=== PATIENT | male | born 1965 | race Caucasian/White ===

== ENCOUNTER → 2016-09-04 | Outpatient (CLI) | payer OTHER ==
[2016-07-10 09:53] VITALS: BP 157/89
[~2016-09-04] MED LIST: ALLO300T PO; ASCO10002 PO; ASPI1TAB2 PO; ASPI81TA2 PO; ATEN50TA PO; CITA20TA5 PO; Chlordiazepoxide Hcl PO; ESCI10TA PO; FEXO180T81 PO; FOLI1TAB16 PO; FURO-68 PO; FURO20TA3 PO; HYDR-2672 PO; HYDR-2762 PO; Hydrocodone Bit/Acetaminophen PO; LEVO500T38 PO; MAGN296S4 PO; MORP30TA13 PO; MORP30TA83 PO; Multivitamins,Therapeutic PO; OLME40TA PO; OMEP20CA9 PO; OMEP40CA5 PO; OXYC-323 PO; OXYC10TA PO; PROAIR HFA8.5 GM IH; SENN1TAB70 PO; TRIA1TAB5 PO; VALS320T2 PO; [UNRECOGNIZED DRUG - CODE] PO
--- NOTE | 2016-09-04 09:59 | RAD ---
Right knee, 2 views, 09/04/2016: History: Knee injury, chronic pain There is mild narrowing of the knee joint with moderate marginal spurring. There is also moderate spurring at the patellofemoral articulation. No acute fracture or dislocation is identified. Calcifications projected over the posterior aspect of the knee joint suggests the presence of loose bodies. No significant joint effusion is seen. A focus of smooth cortical thickening is present along the proximal tibial shaft seen on the lower edge of these images. It is not fully visualized on these images. It probably represents an exostosis. IMPRESSION: 1. Moderate degenerative change. 2. No acute bony abnormality is detected.
== END | disposition home or self-care (01) ==
LOC: RAD 08:48
PROVIDERS: ATTEND Family Medicine
DX: M17.11 Unilateral primary osteoarthritis, right knee (principal)
CPT/HCPCS: 73560

== ENCOUNTER → 2017-08-05 | Outpatient (CLI) | payer OTHER ==
[~2017-08-05] MED LIST changes: -ALLO300T PO; -ASCO10002 PO; -ASPI1TAB2 PO; -ASPI81TA2 PO; -ATEN50TA PO; -CITA20TA5 PO; +CONTRAST GIVEN MC; -Chlordiazepoxide Hcl PO; -ESCI10TA PO; -FEXO180T81 PO; -FOLI1TAB16 PO; -FURO-68 PO; -FURO20TA3 PO; -HYDR-2672 PO; -HYDR-2762 PO; -Hydrocodone Bit/Acetaminophen PO; -LEVO500T38 PO; -MAGN296S4 PO; -MORP30TA13 PO; -MORP30TA83 PO; -Multivitamins,Therapeutic PO; -OLME40TA PO; -OMEP20CA9 PO; -OMEP40CA5 PO; -OXYC-323 PO; -OXYC10TA PO; -PROAIR HFA8.5 GM IH; -SENN1TAB70 PO; -TRIA1TAB5 PO; -VALS320T2 PO; -[UNRECOGNIZED DRUG - CODE] PO
[2017-08-05] MEDS: IOHEXOL 240 MG/ML 50ML VIAL. PO ×2 (07:45)
[2017-08-05] MEDS: IOHEXOL 300 MG/ML 100ML VIAL. IV ×2 (07:45)
== END | disposition home or self-care (01) ==
LOC: CT 07:29
DX: T81.4XXA Infection following a procedure, initial encounter (principal); I85.10 Secondary esophageal varices without bleeding; K74.60 Unspecified cirrhosis of liver; K76.6 Portal hypertension; K42.9 Umbilical hernia without obstruction or gangrene; Z98.890 Other specified postprocedural states
CPT/HCPCS: 74177; Q9966; Q9967

== ENCOUNTER 2021-01-29 19:50 | Emergency (ER) | payer MEDICARE ==
[~2021-01-29] VITALS: Ht 185.4 cm; Wt 139.0 kg
[~2021-01-29 19:50] MED LIST changes: +ALBU2.5V8 IH; +ALLO300T PO; +ALLO300T67 PO; +ASCO100019 PO; +ASPI-621 PO; +ASPI-630 PO; +ATEN50TA PO; +BUME1TAB3 PO; +CARV3.12 PO; +CITA20TA6 PO; -CONTRAST GIVEN MC; +Chlordiazepoxide Hcl PO; +DULO60CA6 PO; +ESCITALOPRAM OX10 MG PO; +FERR240T2 PO; +FEXO180T81 PO; +FOLI1TAB16 PO; +FURO-68 PO; +FURO20TA3 PO; +HYDR-2765 PO; +HYDR-2769 PO; +HYDR-2869 PO; +HYDR25TA PO; +Hydrocodone Bit/Acetaminophen PO; +LEVO500T59 PO; +LOSA100T14 PO; +MAGN296S4 PO; +METH57CR17 TP; +MORP30TA13 PO; +MORP30TA83 PO; +MULT-766 PO; +Multivitamins,Therapeutic PO; +NAPR500T8 PO; +OLME40TA12 PO; +OMEP20CA16 PO; +OMEP40CA7 PO; +OXYC10TA PO; +OXYC1TAB15 PO; +PEG15DRO4 EACHEYE; +POTA20TA4 PO; +PREG150C PO; +SENN1TAB70 PO; +SPIR25TA5 PO; +TRIA1TAB5 PO; +VALS320T2 PO
[2021-01-29 20:36] LABS: BASO # 0.1 x10^3/uL (0.0-0.2); BASO % 1 % (0-3); EOS % 1 % (0-3); HEMATOCRIT 49.6 % (39.0-53.0); HEMOGLOBIN 17.4 g/dL (13.0-17.5); LYMPH # 3.6 x10^3/uL (1.0-4.8); LYMPH % 42 % (24-48); MEAN CORPUSCULAR HEMOGLOBIN 35 pg (25-35); MEAN CORPUSCULAR HGB CONC 35 g/dL (31-37); MEAN CORPUSCULAR VOLUME 101 fL (79-100); MONO # 0.8 x10^3/uL (0.0-1.1); MONO % 9 % (0-9); NEUT # 4.1 x10^3/uL (1.8-7.7); NEUT % 47 % (31-73); PLATELET COUNT 211 x10^3/uL (140-400); RED BLOOD COUNT 4.92 x10^6/uL (4.30-5.70); RED CELL DISTRIBUTION WIDTH 14.7 % (11.5-14.5); WHITE BLOOD COUNT 8.6 x10^3/uL (4.0-11.0)
[2021-01-29 20:47] LABS: CALCIUM 8.8 mg/dL (8.5-10.1); CREATININE 0.7 mg/dL (0.7-1.3); GFR 116.7; POTASSIUM 3.3 mmol/L (3.5-5.1)
[2021-01-29 20:53] LABS: ALBUMIN 3.6 g/dL (3.4-5.0); ALBUMIN/GLOBULIN RATIO 0.8 (1.0-1.7); MAGNESIUM 2.1 mg/dL (1.8-2.4); TOTAL BILIRUBIN 0.7 mg/dL (0.2-1.0); TOTAL PROTEIN 8.4 g/dL (6.4-8.2)
--- NOTE | 2021-01-29 21:29 | RAD ---
PROCEDURE: XR CHEST 1V.01/29/2021 9:26 PM REASON FOR STUDY: Reason: cp / Spl. Instructions: / History: . COMPARISON: Chest film of 01/19/2021. FINDINGS: The lungs are clear. No pleural fluid is seen. Heart size and pulmonary vascularity appear normal. IMPRESSION: No acute abnormality. Electronically signed by: Beni Francois Jr., MD (01/29/2021 9:27 PM) [facility]ENTER[facility]
[2021-01-29 21:49] LABS: AMPHETAMINE/METHAMPHETAMINE NEG (NEG); BARBITURATES NEG (NEG); BENZODIAZEPINES NEG (NEG); CANNABINOIDS NEG (NEG); COCAINE NEG (NEG); METHADONE NEG (NEG); OPIATES NEG (NEG); PHENCYCLIDINE NEG (NEG)
[2021-01-29 22:54] VITALS: BP 143/80
--- NOTE | 2021-01-29 23:17 | PHYS DOC ---
Past Medical History Past Medical History: GERD, Hypertension Additional Past Medical Histor: RECENT CELLULITIS Past Surgical History: Cholecystectomy, Other Additional Past Surgical Histo: LT FOOT, hernia Smoking Status: Never Smoker Alcohol Use: Heavy Drug Use: None General Adult EDM: Chief Complaint: CHEST PAIN HPI: HPI: 55-year-old male past medical history of obesity, GERD and hypertension, presents to the ED with complaints of " I think I"m having a panic attack," reports mother from [facility] and is planning her . Complains of dull, pressure-like sternal chest pain that is intermittent, exacerbated with stress w/associated dyspnea stating "I breath fast." Does report increased alcohol use tonight-drank a 6-pack of beer. Called daughter to bring him to the ed. Is a tobacco smoker. Denies any fall or blunt chest wall trauma. Moderna vaccine is up-to-date. Review of Systems: Review of Systems: Constitutional: Denies fever or chills. [] Eyes: Denies change in visual acuity. [] HENT: Denies nasal congestion or sore throat. [] Respiratory: Denies cough or hemoptysis Cardiovascular: Denies chest tightness or syncope GI: Denies nausea or vomiting, : Denies dysuria or hematuria Musculoskeletal: Denies back pain or joint pain. [] Integument: Denies rash or diaphoresis Neurologic: Denies headache, focal weakness or sensory changes. [] Endocrine: Denies polyuria or polydipsia. [] Lymphatic: Denies swollen glands. [] Psychiatric: Denies depression or anxiety. [] Heart Score: C/O Chest Pain: No HEART Score for Chest Pain: HEART Score for Chest Pain Response (Comments) Value History Slighlty/Non-Suspicious 0 Total 0 Risk Factors: Risk Factors: DM, Current or recent (<one month) smoker, HTN, HLP, family history of CAD, obesity. Risk Scores: Score 0 - 3: 2.5% MACE over next 6 weeks - Discharge Home Score 4 - 6: 20.3% MACE over next 6 weeks - Admit for Clinical Observation Score 7 - 10: 72.7% MACE over next 6 weeks - Early Invasive Strategies Allergies: Allergies: Allergies Coded Allergies Type Severity Reaction Last Updated Verified No Known Drug Allergies 01/10/16 No Physical Exam: PE: Constitutional: aob, ataxic movements in ed stretcher/active/rolling around to change positions, in no distress, nods asleep while talking to you HENT: Normocephalic, atraumatic, dry mucous membranes, no signs of head trauma Eyes: EOMI, conjunctiva normal, no discharge. Neck: Normal range of motion, supple, Cardiovascular: S1/2 present, regular rhythm Lungs & Thorax: Speaking in full sentences, bilateral equal chest rise, no tachypnea or increased work of breathing Abdomen: soft, no tenderness, ventral reducible hernia Skin: Warm, dry, Back: No tenderness, no CVA tenderness. [] Extremities: No tenderness, no cyanosis, Neurologic: Alert and oriented X 3, normal motor function, normal sensory function, no focal deficits noted. [] Psychologic: Affect flat, judgement normal, mood normal. [] Current Patient Data: Labs: Laboratory Tests Test 01/29/21 20:18 01/29/21 21:34 White Blood Count 8.6 x10^3/uL (4.0-11.0) Red Blood Count 4.92 x10^6/uL (4.30-5.70) Hemoglobin 17.4 g/dL (13.0-17.5) Hematocrit 49.6 % (39.0-53.0) Mean Corpuscular Volume 101 fL (79-100) H Mean Corpuscular Hemoglobin 35 pg (25-35) Mean Corpuscular Hemoglobin Concent 35 g/dL (31-37) Red Cell Distribution Width 14.7 % (11.5-14.5) H Platelet Count 211 x10^3/uL (140-400) Neutrophils (%) (Auto) 47 % (31-73) Lymphocytes (%) (Auto) 42 % (24-48) Monocytes (%) (Auto) 9 % (0-9) Eosinophils (%) (Auto) 1 % (0-3) Basophils (%) (Auto) 1 % (0-3) Neutrophils # (Auto) 4.1 x10^3/uL (1.8-7.7) Lymphocytes # (Auto) 3.6 x10^3/uL (1.0-4.8) Monocytes # (Auto) 0.8 x10^3/uL (0.0-1.1) Eosinophils # (Auto) 0.0 x10^3/uL (0.0-0.7) Basophils # (Auto) 0.1 x10^3/uL (0.0-0.2) Sodium Level 142 mmol/L (136-145) Potassium Level 3.3 mmol/L (3.5-5.1) L Chloride Level 103 mmol/L (98-107) Carbon Dioxide Level 25 mmol/L (21-32) Anion Gap 14 (6-14) Blood Urea Nitrogen 3 mg/dL (8-26) L Creatinine 0.7 mg/dL (0.7-1.3) Estimated GFR (Cockcroft-Gault) 116.7 BUN/Creatinine Ratio 4 (6-20) L Glucose Level 132 mg/dL (70-99) H Calcium Level 8.8 mg/dL (8.5-10.1) Magnesium Level 2.1 mg/dL (1.8-2.4) Total Bilirubin 0.7 mg/dL (0.2-1.0) Aspartate Amino Transferase (AST) 125 U/L (15-37) H Alanine Aminotransferase (ALT) 77 U/L (16-63) H Alkaline Phosphatase 153 U/L (46-116) H Troponin I Quantitative < 0.017 ng/mL (0.000-0.055) SP-Vpf-H-Type Natriuretic Peptide 14 pg/mL (0-124) Total Protein 8.4 g/dL (6.4-8.2) H Albumin 3.6 g/dL (3.4-5.0) Albumin/Globulin Ratio 0.8 (1.0-1.7) L Lipase 80 U/L (73-393) Ethyl Alcohol Level 360 mg/dL (0-10) H Urine Opiates Screen Neg (NEG) Urine Methadone Screen Neg (NEG) Urine Barbiturates Neg (NEG) Urine Phencyclidine Screen Neg (NEG) Urine Amphetamine/Methamphetamine Neg (NEG) Urine Benzodiazepines Screen Neg (NEG) Urine Cocaine Screen Neg (NEG) Urine Cannabinoids Screen Neg (NEG) Urine Ethyl Alcohol Pos (NEG) Laboratory Tests 01/29/21 20:18 Laboratory Tests 01/29/21 20:18 Vital Signs: Vital Signs Date Time Temp Pulse Resp B/P (MAP) Pulse Ox O2 Delivery O2 Flow Rate FiO2 01/29/21 20:08 98.5 97 24 134/92 (115) 100 Room Air 98.5 EKG: EKG: Sinus rhythm 97 bpm, no axis deviation, QTC 472, no T wave inversions, no ST elevations, concave ST segments lead I, V5 and V6 Radiology/Procedures: Radiology/Procedures: IMAGING REPORT Signed PATIENT: EMY RANDALLOUNT: [id number] : 1965 LOCATION: ER AGE: 55 SEX: M EXAM STATUS: REG ER ORD. PHYSICIAN: CANDELARIO HERNANDEZ DO REASON: cp PROCEDURE: PORTABLE CHEST 1V PROCEDURE: XR CHEST 1V.01/29/2021 9:26 PM REASON FOR STUDY: Reason: cp / Spl. Instructions: / History: . COMPARISON: Chest film of 01/19/2021. FINDINGS: The lungs are clear. No pleural fluid is seen. Heart size and pulmonary vascularity appear normal. IMPRESSION: No acute abnormality. Electronically signed by: Wendy Hensley Jr., MD (01/29/2021 9:27 PM) [facility] DICTATED and SIGNED BY: WENDY HENSLEY Jr, MD DATE: 01/29/21 [id number] 0 Course & Med Decision Making: Course & Med Decision Making Pertinent Labs and Imaging studies reviewed. (See chart for details) Concern for anxiety, suspect panic attack in the setting of palpitations, difficulties breathing and chest pain -alcohol prior anxiolysis. No medication required in ED. Patient calm, no distress. On sober reevaluation, patient ambulating requesting his IV to be removed. Patient no further chest pain or difficulties breathing. I suspect acute grief reaction versus substance-induced mood disorder. Patient denies any homicidal or suicidal ideations, is not danger to himself. Will discharge home with strict ED return precautions were g iven for HI, SI, neurologic deficits, chest pressure, dyspnea, abscess or increased work of breathing. Encouraged urgent outpatient follow-up with PMD. Life-threatening processes were considered but are low suspicion at this time, given history, physical exam and ED workup. Pt was educated on all prescription medications and adverse effects. All patient's questions were answered and pt was stable at time of discharge. Life/limb-threatening differential includes but is not limited to, end organ damage/sepsis, trauma/abuse/neglect, neurologic deficit, alcohol/drug ingestion, toxidrome, suicidal/homicidal ideations plans or attempts, psychosis or mental illness resulting in self neglect and inability to care for self. I have spoken with the patient and/or caregivers. I explained the patient's condition, diagnoses and treatment plan based on the information available to me at this time. I have answered the patient and/or caregiver's questions and addressed any concerns. The patient and/or caregivers have a good understanding of patient's diagnosis, condition and treatment plan as can be expected at this point. Vital signs have been stable. Patient's condition is stable and celio ropriate for discharge from the emergency department. Patient will pursue further outpatient evaluation with primary care physician or other designated or consulting physician as outlined in the discharge instructions. The patient and/or caregivers are agreeable to this plan of care and follow-up instructions have been explained in detail. The patient and/or caregivers have received these instructions in written form and have expressed an understanding of the discharge instructions. The patient and/or caregivers are aware that any significant change of condition or worsening of symptoms s hould prompt immediate return to this or the closest emergency department or call to 911. Tana Disclaimer: Tana Disclaimer: This electronic medical record was generated, in whole or in part, using a voice recognition dictation system. Departure Departure Impression: Primary Impression: Alcohol intoxication Disposition: 01 HOME / SELF CARE / HOMELESS Condition: STABLE Referrals: UNKNOWN PCP NAME (PCP) Patient Instructions: Alcohol Intoxication Additional Instructions: EMERGENCY DEPARTMENT GENERAL DISCHARGE INSTRUCTIONS Thank you for coming to [facility] Emergency Department (ED) today and trusting us with you care. We trust that you had a positive experience in our Emergency Department. If you wish to speak to the department management, you may call the Director at [phone]. YOUR FOLLOW UP INSTRUCTIONS ARE FOLLOWS: 1. Do you have a private Doctor? If you do not have a private doctor, please ask for a resource list of physicians or clinics that may be able to assist you with follow up care. 2. The Emergency Physicain has interpreted your x-rays. The X-Ray specialist will also review them. If there is a change in the findings, you will be notified in 48 hours when at all possible. 3. A lab test or culture has been done, your results will be reviewed and you will be notified if you need a change in treatment. ADDITIONAL INSTRUCTIONS AND INFORMATION: 1. Your care today has been supervised by a physician who is specially trained in emergency care. Many problems require more than one evaluation for a complete diagnosis and treatment. We recommend that you schedule your follow up appointment as recommended to ensure complete treatment of you illness or injury. If you are unable to obtain follow up care and continue to have a problem, or if your condition worsens, we recommend that you return to the ED. 2. We are not able to safely determine your condition over the phone nor are we able to give sound medical advice over the phone. For these safety reasons, if you call for medical advice we will ask you to come to the ED for further evaluation. 3. If you have any questions regarding these discharge instructions please call the ED at [phone]. SAFETY INFORMATION: In the interest of safety, wellness, and injury prevention; we encourage you to wear your sealbelt, if you smoke; quite smoking, and we encourage family to use a protective helmet for bicycling and other sporting events that present an increased risk for head injury. IF YOUR SYMPTOMS WORSEN OR NEW SYMPTOMS DEVELOP, OR YOU HAVE CONCERNS ABOUT YOUR CONDITION; OR IF YOUR CONDITION WORSENS WHILE YOU ARE WAITING FOR YOUR FOLLOW UP APPOINTMENT; EITHER CONTACT YOUR PRIMARY CARE DOCTOR, THE PHYSICIAN WHOSE NAME AND NUMBER YOU WERE GIVEN, OR RETURN TO THE ED IMMEDIATELY. CANDELARIO HERNANDEZ DO Jan 29, 2021 23:17
[2021-01-30] MEDS ORDERED: MULTIVIT INFUSN,ADULT 4,VIT K 10 ML, THIAMINE INJ 100 MG, FOLIC ACID INJ 1 MG in IV NOR... IV ONE
--- NOTE | 2021-01-30 00:31 | EKG ---
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
--- NOTE | 2021-01-30 00:33 | EKG ---
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
--- NOTE | 2021-01-30 05:30 | EKG ---
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
== END 2021-01-29 23:48 | disposition home or self-care (01) ==
LOC: ER 19:50
DX: F10.229 Alcohol dependence with intoxication, unspecified (principal); Y90.8 Blood alcohol level of 240 mg/100 ml or more; R07.2 Precordial pain; F41.0 Panic disorder [episodic paroxysmal anxiety]; K21.9 Gastro-esophageal reflux disease without esophagitis; I10 Essential (primary) hypertension
CPT/HCPCS: 36415; 71045; 80053; 80307; 83690; 83735; 83880; 84484; 85025; 93005; 99285; G0480

== ENCOUNTER 2021-05-27 16:45 | Inpatient (IN) | payer MEDICARE ==
[~2021-05-27] VITALS: Ht 185.4 cm; Wt 131.3 kg
[~2021-05-27 16:45] MED LIST changes: -DULO60CA6 PO; +DULO60CA7 PO
[2021-05-27] MEDS ORDERED: MULTIVIT INFUSN,ADULT 4,VIT K 10 ML, THIAMINE INJ 100 MG, FOLIC ACID INJ 1 MG in IV NOR... IV ONE (17:00)
[2021-05-27 17:16] LABS: BASO % 1 % (0-3); EOS % 0 % (0-3); HEMATOCRIT 47.4 % (39.0-53.0); HEMOGLOBIN 16.4 g/dL (13.0-17.5); LYMPH # 1.2 x10^3/uL (1.0-4.8); LYMPH % 21 % (24-48); MEAN CORPUSCULAR HEMOGLOBIN 35 pg (25-35); MEAN CORPUSCULAR HGB CONC 35 g/dL (31-37); MEAN CORPUSCULAR VOLUME 102 fL (79-100); MONO # 0.6 x10^3/uL (0.0-1.1); MONO % 10 % (0-9); NEUT % 68 % (31-73); PLATELET COUNT 71 x10^3/uL (140-400); RED BLOOD COUNT 4.66 x10^6/uL (4.30-5.70); RED CELL DISTRIBUTION WIDTH 15.4 % (11.5-14.5); WHITE BLOOD COUNT 5.9 x10^3/uL (4.0-11.0)
[2021-05-27 17:34] LABS: ALBUMIN 3.4 g/dL (3.4-5.0); ALBUMIN/GLOBULIN RATIO 0.8 (1.0-1.7); CALCIUM 7.5 mg/dL (8.5-10.1); CREATININE 1.3 mg/dL (0.7-1.3); GFR 57.1; MAGNESIUM 0.7 mg/dL (1.8-2.4); TOTAL BILIRUBIN 3.8 mg/dL (0.2-1.0); TOTAL PROTEIN 7.9 g/dL (6.4-8.2)
--- NOTE | 2021-05-27 17:42 | RAD ---
Exam: CT head INDICATION: Facial droop TECHNIQUE: Sequential axial images through the head were obtained without the administration of IV co ntrast. Exposure: One or more of the following in the visualized dose reduction techniques were utilized for this examination: 1. Automated exposure control 2. Adjustment of the MA and/or KV according to patient size 3. Use of iterative of reconstructive technique Comparisons: None FINDINGS: No focal parenchymal lesion or hemorrhage is identified. There is no midline shift or sulcal effaceme nt. Mild patchy hypodensity in the periventricular white matter. No acute vascular territory infarction i s identified. Reed-white distinction is preserved. The ventricular system is within normal limits without compression hydrocephalus. The basal cisterns are well maintained. The visualized portions of the paranasal sinuses and mastoid air cells are well-pneumatized. No acute fractures. IMPRESSION: Mild small vessel schema change, technically age indeterminate without recent prior imaging. Electronically signed by: Lin Leonardo MD (05/27/2021 5:39 PM) [facility]
--- NOTE | 2021-05-27 18:04 | PHYS DOC ---
Past Medical History Past Medical History: Alcoholism, CHF, GERD, Hypertension Additional Past Medical Histor: RECENT CELLULITIS, elevated LFTs Past Surgical History: Cholecystectomy, Other Additional Past Surgical Histo: LT FOOT, hernia Smoking Status: Never Smoker Alcohol Use: Heavy Drug Use: None General Adult EDM: Chief Complaint: CHEST PAIN HPI: HPI: Patient is a 55-year-old male that presents today via private vehicle for chest pain and facial droop. Patient states that he was on a 4-week alcohol [place] and suddenly stopped drinking on this week, and since this morning has had shakes, sweats, chest pain, and overall feeling not well. Per report from family patient had a facial droop and dizziness earlier this morning but unknown time. Patient states she does have a history of congestive heart failure and diabetes. Review of Systems: Review of Systems: Constitutional: Denies fever or chills. [] Eyes: Denies change in visual acuity. [] HENT: Denies nasal congestion or sore throat. [] Respiratory: Denies cough or shortness of breath. [] Cardiovascular: chest pain or denies edema. [] GI: Denies abdominal pain, nausea, vomiting, bloody stools or diarrhea. [] : Denies dysuria. [] Musculoskeletal: Denies back pain or joint pain. [] Integument: Denies rash. [] Neurologic: genralized weakness, Denies headache, focal weakness or sensory changes. [] Endocrine: Denies polyuria or polydipsia. [] Lymphatic: Denies swollen glands. [] Psychiatric: Denies depression or anxiety. [] Heart Score: C/O Chest Pain: Yes HEART Score for Chest Pain: HEART Score for Chest Pain Response (Comments) Value History Moderately Suspicious 1 ECG Nonspecific Repolarizatio 1 Age >45 - < 65 1 Risk Factors >3 Risk Factors or Hx CAD 2 Total 5 Risk Factors: Risk Factors: DM, Current or recent (<one month) smoker, HTN, HLP, family history of CAD, obesity. Risk Scores: Score 0 - 3: 2.5% MACE over next 6 weeks - Discharge Home Score 4 - 6: 20.3% MACE over next 6 weeks - Admit for Clinical Observation Score 7 - 10: 72.7% MACE over next 6 weeks - Early Invasive Strategies Current Medications: Current Medications Medications (Trade) Dose Ordered Sig/Bonnie Start Time Stop Time Status Last Admin Dose Admin Lorazepam (Ativan Inj) 2 mg 1X ONCE 05/27/21 17:00 05/27/21 17:04 DC 05/27/21 17:36 2 MG Multivitamins 10 ml/Thiamine HCl 100 mg/Folic Acid 1 mg/Sodium Chloride 1,011.2 ml @ 500 mls/ hr 1X ONCE 05/27/21 17:00 05/27/21 19:01 05/27/21 17:25 500 MLS/HR Allergies: Allergies: Allergies Coded Allergies Type Severity Reaction Last Updated Verified No Known Drug Allergies 01/10/16 No Physical Exam: PE: Constitutional: Obese male, moderate distress HENT: Normocephalic, atraumatic, bilateral external ears normal, oropharynx moist, no oral exudates, nose normal. [] Eyes: PERRLA, EOMI, conjunctiva normal, no discharge. [] Neck: Normal range of motion no JVD Cardiovascular: gambling monitor shows sinus tach, peripheral pulses 1+, Lungs & Thorax: Bilateral breath sounds clear to auscultation [] Abdomen: Abdomen large, distended, no pain with palpation, bowel sounds normal in all 4 quadrants, healing scars noted at the umbilicus area Skin: Skin is warm, diaphoretic and pale Back: No tenderness, no CVA tenderness. [] Extremities: No tenderness, no cyanosis, no clubbing, ROM intact, no edema. [] Neurologic: Alert and oriented X 3, normal motor function, normal sensory function, no focal deficits noted. [] Psychologic: Affect normal, judgement normal, mood normal. [] Current Patient Data: Labs: Laboratory Tests Test 05/27/21 16:49 05/27/21 17:00 Glucose (Fingerstick) 129 mg/dL (70-99) H White Blood Count 5.9 x10^3/uL (4.0-11.0) Red Blood Count 4.66 x10^6/uL (4.30-5.70) Hemoglobin 16.4 g/dL (13.0-17.5) Hematocrit 47.4 % (39.0-53.0) Mean Corpuscular Volume 102 fL (79-100) H Mean Corpuscular Hemoglobin 35 pg (25-35) Mean Corpuscular Hemoglobin Concent 35 g/dL (31-37) Red Cell Distribution Width 15.4 % (11.5-14.5) H Platelet Count 71 x10^3/uL (140-400) L Neutrophils (%) (Auto) 68 % (31-73) Lymphocytes (%) (Auto) 21 % (24-48) L Monocytes (%) (Auto) 10 % (0-9) H Eosinophils (%) (Auto) 0 % (0-3) Basophils (%) (Auto) 1 % (0-3) Neutrophils # (Auto) 4.0 x10^3/uL (1.8-7.7) Lymphocytes # (Auto) 1.2 x10^3/uL (1.0-4.8) Monocytes # (Auto) 0.6 x10^3/uL (0.0-1.1) Eosinophils # (Auto) 0.0 x10^3/uL (0.0-0.7) Basophils # (Auto) 0.0 x10^3/uL (0.0-0.2) Sodium Level 140 mmol/L (136-145) Potassium Level 3.0 mmol/L (3.5-5.1) L Chloride Level 96 mmol/L (98-107) L Carbon Dioxide Level 30 mmol/L (21-32) Anion Gap 14 (6-14) Blood Urea Nitrogen 10 mg/dL (8-26) Creatinine 1.3 mg/dL (0.7-1.3) Estimated GFR (Cockcroft-Gault) 57.1 BUN/Creatinine Ratio 8 (6-20) Glucose Level 125 mg/dL (70-99) H Calcium Level 7.5 mg/dL (8.5-10.1) L Magnesium Level 0.7 mg/dL (1.8-2.4) L Total Bilirubin 3.8 mg/dL (0.2-1.0) H Aspartate Amino Transferase (AST) 262 U/L (15-37) H Alanine Aminotransferase (ALT) 110 U/L (16-63) H Alkaline Phosphatase 284 U/L (46-116) H Creatine Kinase 316 U/L (39-308) H Troponin I High Sensitivity 24 ng/L (4-75) MK-Gum-J-Type Natriuretic Peptide 316 pg/mL (0-124) H Total Protein 7.9 g/dL (6.4-8.2) Albumin 3.4 g/dL (3.4-5.0) Albumin/Globulin Ratio 0.8 (1.0-1.7) L Ethyl Alcohol Level < 10 mg/dL (0-10) Laboratory Tests 05/27/21 17:00 Laboratory Tests 05/27/21 17:00 Vital Signs: Vital Signs Date Time Temp Pulse Resp B/P (MAP) Pulse Ox O2 Delivery O2 Flow Rate FiO2 05/27/21 20:40 18 99 Room Air 05/27/21 19:00 92 24 160/100 (120) 99 Room Air 05/27/21 18:30 96 24 144/85 (104) 99 Room Air 05/27/21 18:00 108 24 174/95 (121) 99 Room Air 05/27/21 17:03 98.6 104 24 146/86 (106) 99 Room Air 98.6 Vital Signs Date Time Temp Pulse Resp B/P (MAP) Pulse Ox O2 Delivery O2 Flow Rate FiO2 05/27/21 17:03 98.6 104 24 146/86 (106) 99 Room Air 98.6 EKG: EKG: EKG done at [address] Hinson at 1652 no STEMI does show sinus rhythm with abnormal T waves in the lateral leads QT interval is 384 ms NJ interval is 162 ms [] Radiology/Procedures: Radiology/Procedures: PROCEDURE: CT HEAD WO CONTRAST Exam: CT head INDICATION: Facial droop TECHNIQUE: Sequential axial images through the head were obtained without the administration of IV contrast. Exposure: One or more of the following in the visualized dose reduction techniques were utilized for this examination: 1. Automated exposure control 2. Adjustment of the MA and/or KV according to patient size 3. Use of iterative of reconstructive technique Comparisons: None FINDINGS: No focal parenchymal lesion or hemorrhage is identified. There is no midline shift or sulcal effacement. Mild patchy hypodensity in the periventricular white matter. No acute vascular territory infarction is identified. Reed-white distinction is preserved. The ventricular system is within normal limits without compression hydrocephalus. The basal cisterns are well maintained. The visualized portions of the paranasal sinuses and mastoid air cells are well- pneumatized. No acute fractures. IMPRESSION: Mild small vessel schema change, technically age indeterminate without recent prior imaging. [] Course & Med Decision Making: Course & Med Decision Making Pertinent Labs and Imaging studies reviewed. (See chart for details) 1750 reassessed patient blood pressure currently is 170s over 90s heart rate in the low 100s . Patient is having tetany type symptoms in his upper extremities no seizure activity has been noted continues to be diaphoretic does have IV fluids running will page hospitalist for admitting [address] Zuluaga regarding admission will admit patient to the intensive care unit for management [] Dragon Disclaimer: Dragpoornima Disclaimer: This electronic medical record was generated, in whole or in part, using a voice recognition dictation system. Departure Departure Impression: Primary Impression: Alcohol withdrawal delirium Additional Impressions: Hypomagnesemia Hypokalemia Disposition: ADMITTED INPATIENT Admitting Physician: JG Condition: CRITICAL Referrals: UNKNOWN PCP NAME (PCP) PHONG SIU APRN May 27, 2021 18:04
[2021-05-27] MEDS ORDERED: LACTULOSE 20 GM/30 ML SOLUTION. PO PRN (18:30)
[2021-05-27] MEDS ORDERED: BISACODYL 10 MG SUPP.RECT. PR PRN (18:30)
[2021-05-27] MEDS ORDERED: CALCIUM CARBONATE 500 MG TAB.CHEW PO PRN (18:30)
[2021-05-27] MEDS ORDERED: cloNIDine HCL 0.1 MG TABLET PO PRN (18:30)
[2021-05-27] MEDS ORDERED: 0.9 % SODIUM CHLORIDE 10 ML DISP.SYRIN. IV PRN (18:30)
[2021-05-27] MEDS ORDERED: MAGNESIUM HYDROXIDE 2,400 MG/30 ML ORAL.SUSP. PO PRN (18:30)
[2021-05-27] MEDS ORDERED: chlordiazePOXIDE HCL 25 MG CAPSULE PO PRN (18:30)
[2021-05-27] MEDS ORDERED: ONDANSETRON PF 4 MG/2 ML VIAL. IVP PRN (18:30)
[2021-05-27] MEDS ORDERED: ACETAMINOPHEN 500 MG TABLET PO PRN (19:00)
[2021-05-27] MEDS ORDERED: MAGNESIUM SULFATE 4GM 100 ML IV ONE (19:00)
--- NOTE | 2021-05-27 19:02 | RAD ---
EXAM: CHEST 1 VIEW History: Chest pain COMPARISON: 01/29/2021 TECHNIQUE: Single portable radiograph of the chest FINDINGS: The cardiac silhouette is unremarkable. The lungs are clear bilaterally. The costophrenic sulci are clear and well demarcated. IMPRESSION: No radiographic evidence of an acute cardiopulmonary process. Electronically signed by: Mu Flores MD (05/27/2021 7:00 PM) [id number]
--- NOTE | 2021-05-27 19:30 | NUR ---
Pt arrived from ED ,alert and oriented, banana bag infusing. Pt on [place] and electrolyte protocol, seizure precautions initiated on arrival.
[2021-05-27 20:00] VITALS: BP 165/116
[2021-05-27 20:15] VITALS: BP 150/83
[2021-05-27 20:30] VITALS: BP 166/93
[2021-05-27] MEDS: POTASSIUM PHOS,M-BASIC-D-BASIC 15 MMOL in IV NORMAL SALINE 100ML 100 ML IV SCH ×2 (20:31)
[2021-05-27 20:39] LABS: ALBUMIN 3.5 g/dL (3.4-5.0); TOTAL BILIRUBIN 3.8 mg/dL (0.2-1.0); TOTAL PROTEIN 7.9 g/dL (6.4-8.2)
[2021-05-27] MEDS: fentaNYL PF VIAL 100 MCG/2 ML VIAL IV PRN ×2 (20:40→23:52)
[2021-05-27 21:00] VITALS: BP 140/94
[2021-05-27] MEDS: FAMOTIDINE 20 MG/2 ML VIAL IVP SCH (21:23)
[2021-05-27] MEDS: SENNOSIDES/DOCUSATE 8.6/50MG TABLET. PO SCH (21:23)
[2021-05-27 22:00] VITALS: BP 162/94
[2021-05-27 22:46] LABS: BARBITURATES NEG (NEG); BENZODIAZEPINES POS (NEG); CANNABINOIDS POS (NEG); COCAINE NEG (NEG); METHADONE NEG (NEG); OPIATES NEG (NEG); PHENCYCLIDINE NEG (NEG)
[2021-05-27 22:48] LABS: AMPHETAMINE/METHAMPHETAMINE NEG (NEG)
--- NOTE | 2021-05-27 23:02 | PDOC1 ---
History and Physical Date of Admission Date of Admission 05/27/2021 Identification/Chief Complaint Chief Complaint I want to stop drinking Source Source: Chart review, Patient History of Present Illness History of Present Illness Patient is a 55-year-old gentleman with past medical history of alcoholism was in his usual state of health until when he decided to stop a 4-week drinking spree that he had started. The patient has been sober in the past and fortunately enough as decided to quit drinking again. He has attended AA meetings and other support groups in the past and has been sober in the past. Unfortunately he attended a [place] where he was offered a drink which led to another and apparently he had a pretty good time unfortunately he thought he could control his drinking and the day after decided to repeat the experience at the [facility] which led to more drinking including with the 4 weeks that landed him now in the hospital with alcohol withdrawal symptoms. The patient at the time of the initial evaluation in the emergency department seem to be quite agitated and also having visual hallucinations. At the time of my visit in the critical care unit the patient is more settled he has received Ativan in the emergency department and has orders for withdrawal protocol. He feels much better he is cooperative and answering all questions. The patient denies any headache no blurred vision no double vision no strokelike symptoms no chest pain no palpitations no shortness of breath no abdominal discomfort no nausea vomiting or diarrhea. Patient denies any recent sick contacts no other complaints are voiced and he feels better compared to admission. Plan of care has been explained detail all of his concerns were addressed to the best of my abilities Past Medical History Cardiovascular: CHF, HTN, Hyperlipidemia Pulmonary: Asthma, Other CENTRAL NERVOUS SYSTEM: Seizure GI: GERD Heme/Onc: No pertinent hx Hepatobiliary: Other Psych: Anxiety, Other Rheumatologic: Gout Infectious disease: No pertinent hx Renal/: No pertinent hx Endocrine: Diabetes Past Surgical History Past Surgical History: Arthroscopy, Cholecystectomy, Hernia Repair Family History Family History: No Significant, Family History Unknown Social History ALCOHOL: heavy Drugs: None Current Problem List Problem List Problems Medical Problems: (1) Alcohol withdrawal delirium Status: Acute (2) Hypokalemia Status: Acute (3) Hypomagnesemia Status: Acute Current Medications Current Medications Current Medications Medications (Trade) Dose Ordered Sig/Bonnie Start Time Stop Time Status Last Admin Dose Admin Acetaminophen (Tylenol) 500 mg PRN Q6HRS PRN 05/27/21 19:00 Bisacodyl (Dulcolax Supp) 10 mg PRN DAILY PRN 05/27/21 18:30 Calcium Carbonate/ Glycine (Tums) 500 mg PRN Q3HRS PRN 05/27/21 18:30 Chlordiazepoxide (Librium) 100 mg PRN Q1HR PRN 05/27/21 18:30 Clonidine HCl (Catapres) 0.1 mg PRN Q1HR PRN 05/27/21 18:30 Famotidine (Pepcid Vial) 20 mg BID 05/27/21 21:00 05/27/21 21:23 20 MG Fentanyl Citrate (Fentanyl 2ml Vial) 25 mcg PRN Q1HR PRN 05/27/21 18:30 05/27/21 20:40 25 MCG Info (Icu Electrolyte Protocol) 1 ea DAILY 05/28/21 09:00 Lactulose (Lactulose) 20 gm PRN Q12HR PRN 05/27/21 18:30 Lorazepam (Ativan Inj) 2 mg PRN Q15MIN PRN 05/27/21 18:30 05/27/21 22:39 2 MG Magnesium Hydroxide (Milk Of Magnesia) 2,400 mg PRN Q12HR PRN 05/27/21 18:30 Magnesium Sulfate 100 ml @ 25 mls/hr 1X ONCE 05/27/21 19:00 05/27/21 22:59 05/27/21 20:32 25 MLS/HR Multivitamins 10 ml/Thiamine HCl 100 mg/Folic Acid 1 mg/Sodium Chloride 1,011.2 ml @ 100 mls/ hr DAILY 05/28/21 09:00 05/31/21 19:07 Ondansetron HCl (Zofran) 4 mg PRN Q6HRS PRN 05/27/21 18:30 Potassium Phosphate 15 mmol/ Sodium Chloride 105 ml @ 52.5 mls/hr Q2H 05/27/21 19:00 05/27/21 22:59 05/27/21 20:31 52.5 MLS/HR Senna/Docusate Sodium (Senna Plus) 1 tab BID 05/27/21 21:00 05/27/21 21:23 1 TAB Sodium Chloride (Normal Saline Flush) 3 ml QSHIFT PRN 05/27/21 18:30 Allergies Allergies Allergies Coded Allergies Type Severity Reaction Last Updated Verified No Known Drug Allergies 01/10/16 No ROS Review of System CONSTITUTIONAL: No fever or chills EYES: No recent changes SKIN: No rash or itching CARDIOVASCULAR: No chest pain, syncope, palpitations, or edema RESPIRATORY: No SOB or cough GASTROINTESTINAL: No nausea, vomiting or abdominal pain NEUROLOGICAL: No headaches or weakness ENDOCRINE: No cold or heat intolerance GENITOURINARY: No urgency or frequency of urination MUSCULOSKELETAL: No back pain or joint pain LYMPHATICS: No enlarged lymph nodes PSYCHIATRIC: No anxiety or depression Physical Exam Physical Exam GEN.: No apparent distress. Alert and oriented. HEENT: Head is normocephalic, atraumatic NECK: Supple. LUNGS: Clear to auscultation. HEART: RRR, S1, S2 present. Peripheral pulses intact ABDOMEN: Soft, nontender. Positive bowel sounds. EXTREMITIES: Without any cyanosis. NEUROLOGIC: Normal speech, normal tone PSYCHIATRIC: Normal affect, normal mood. SKIN: No ulcerations Vitals Vitals Vital Signs Date Time Temp Pulse Resp B/P (MAP) Pulse Ox O2 Delivery O2 Flow Rate FiO2 05/27/21 21:10 16 98 Room Air 05/27/21 19:00 92 160/100 (120) 05/27/21 17:03 98.6 98.6 Labs Labs Laboratory Tests Test 05/27/21 16:49 05/27/21 17:00 05/27/21 19:20 05/27/21 22:30 Glucose (Fingerstick) 129 mg/dL (70-99) White Blood Count 5.9 x10^3/uL (4.0-11.0) Red Blood Count 4.66 x10^6/uL (4.30-5.70) Hemoglobin 16.4 g/dL (13.0-17.5) Hematocrit 47.4 % (39.0-53.0) Mean Corpuscular Volume 102 fL (79-100) Mean Corpuscular Hemoglobin 35 pg (25-35) Mean Corpuscular Hemoglobin Concent 35 g/dL (31-37) Red Cell Distribution Width 15.4 % (11.5-14.5) Platelet Count 71 x10^3/uL (140-400) Neutrophils (%) (Auto) 68 % (31-73) Lymphocytes (%) (Auto) 21 % (24-48) Monocytes (%) (Auto) 10 % (0-9) Eosinophils (%) (Auto) 0 % (0-3) Basophils (%) (Auto) 1 % (0-3) Neutrophils # (Auto) 4.0 x10^3/uL (1.8-7.7) Lymphocytes # (Auto) 1.2 x10^3/uL (1.0-4.8) Monocytes # (Auto) 0.6 x10^3/uL (0.0-1.1) Eosinophils # (Auto) 0.0 x10^3/uL (0.0-0.7) Basophils # (Auto) 0.0 x10^3/uL (0.0-0.2) Sodium Level 140 mmol/L (136-145) Potassium Level 3.0 mmol/L (3.5-5.1) Chloride Level 96 mmol/L (98-107) Carbon Dioxide Level 30 mmol/L (21-32) Anion Gap 14 (6-14) Blood Urea Nitrogen 10 mg/dL (8-26) Creatinine 1.3 mg/dL (0.7-1.3) Estimated GFR (Cockcroft-Gault) 57.1 BUN/Creatinine Ratio 8 (6-20) Glucose Level 125 mg/dL (70-99) Calcium Level 7.5 mg/dL (8.5-10.1) Magnesium Level 0.7 mg/dL (1.8-2.4) Total Bilirubin 3.8 mg/dL (0.2-1.0) Direct Bilirubin 2.0 mg/dL (0.0-0.2) Aspartate Amino Transf (AST/SGOT) 266 U/L (15-37) Alanine Aminotransferase (ALT/SGPT) 108 U/L (16-63) Alkaline Phosphatase 280 U/L (46-116) Creatine Kinase 316 U/L (39-308) Troponin I High Sensitivity 24 ng/L (4-75) ZB-Jkj-L-Type Natriuretic Peptide 316 pg/mL (0-124) Total Protein 7.9 g/dL (6.4-8.2) Albumin 3.5 g/dL (3.4-5.0) Albumin/Globulin Ratio 0.8 (1.0-1.7) Ethyl Alcohol Level < 10 mg/dL (0-10) SARS-CoV-2 Antigen (Rapid) Negative (NEGATIVE) Urine Opiates Screen Neg (NEG) Urine Methadone Screen Neg (NEG) Urine Barbiturates Neg (NEG) Urine Phencyclidine Screen Neg (NEG) Urine Amphetamine/Methamphetamine Neg (NEG) Urine Benzodiazepines Screen Pos (NEG) Urine Cocaine Screen Neg (NEG) Urine Cannabinoids Screen Pos (NEG) Urine Ethyl Alcohol Neg (NEG) Laboratory Tests Test 05/27/21 16:49 05/27/21 17:00 05/27/21 19:20 05/27/21 22:30 Glucose (Fingerstick) 129 mg/dL (70-99) White Blood Count 5.9 x10^3/uL (4.0-11.0) Red Blood Count 4.66 x10^6/uL (4.30-5.70) Hemoglobin 16.4 g/dL (13.0-17.5) Hematocrit 47.4 % (39.0-53.0) Mean Corpuscular Volume 102 fL (79-100) Mean Corpuscular Hemoglobin 35 pg (25-35) Mean Corpuscular Hemoglobin Concent 35 g/dL (31-37) Red Cell Distribution Width 15.4 % (11.5-14.5) Platelet Count 71 x10^3/uL (140-400) Neutrophils (%) (Auto) 68 % (31-73) Lymphocytes (%) (Auto) 21 % (24-48) Monocytes (%) (Auto) 10 % (0-9) Eosinophils (%) (Auto) 0 % (0-3) Basophils (%) (Auto) 1 % (0-3) Neutrophils # (Auto) 4.0 x10^3/uL (1.8-7.7) Lymphocytes # (Auto) 1.2 x10^3/uL (1.0-4.8) Monocytes # (Auto) 0.6 x10^3/uL (0.0-1.1) Eosinophils # (Auto) 0.0 x10^3/uL (0.0-0.7) Basophils # (Auto) 0.0 x10^3/uL (0.0-0.2) Sodium Level 140 mmol/L (136-145) Potassium Level 3.0 mmol/L (3.5-5.1) Chloride Level 96 mmol/L (98-107) Carbon Dioxide Level 30 mmol/L (21-32) Anion Gap 14 (6-14) Blood Urea Nitrogen 10 mg/dL (8-26) Creatinine 1.3 mg/dL (0.7-1.3) Estimated GFR (Cockcroft-Gault) 57.1 BUN/Creatinine Ratio 8 (6-20) Glucose Level 125 mg/dL (70-99) Calcium Level 7.5 mg/dL (8.5-10.1) Magnesium Level 0.7 mg/dL (1.8-2.4) Total Bilirubin 3.8 mg/dL (0.2-1.0) Direct Bilirubin 2.0 mg/dL (0.0-0.2) Aspartate Amino Transf (AST/SGOT) 266 U/L (15-37) Alanine Aminotransferase (ALT/SGPT) 108 U/L (16-63) Alkaline Phosphatase 280 U/L (46-116) Creatine Kinase 316 U/L (39-308) Troponin I High Sensitivity 24 ng/L (4-75) MG-Wub-Q-Type Natriuretic Peptide 316 pg/mL (0-124) Total Protein 7.9 g/dL (6.4-8.2) Albumin 3.5 g/dL (3.4-5.0) Albumin/Globulin Ratio 0.8 (1.0-1.7) Ethyl Alcohol Level < 10 mg/dL (0-10) SARS-CoV-2 Antigen (Rapid) Negative (NEGATIVE) Urine Opiates Screen Neg (NEG) Urine Methadone Screen Neg (NEG) Urine Barbiturates Neg (NEG) Urine Phencyclidine Screen Neg (NEG) Urine Amphetamine/Methamphetamine Neg (NEG) Urine Benzodiazepines Screen Pos (NEG) Urine Cocaine Screen Neg (NEG) Urine Cannabinoids Screen Pos (NEG) Urine Ethyl Alcohol Neg (NEG) VTE Prophylaxis Ordered VTE Prophylaxis Devices: Yes VTE Pharmacological Prophylaxi: Yes Assessment/Plan Assessment/Plan Alcohol withdrawal at increased risk for delirium tremens Acute alcoholic hepatitis Hypokalemia Hypomagnesemia Hypoalbuminemia Hyperbilirubinemia 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
[2021-05-27] MEDS ORDERED: DOXE10CA PO (23:09)
[2021-05-27] MEDS ORDERED: LEXAPRO10 MG PO (23:10)
[2021-05-27] MEDS ORDERED: NAPR-514 PO (23:13)
[2021-05-27] MEDS ORDERED: hydrOXYzine 25 MG TABLET PO PRN (23:15)
[2021-05-27] MEDS ORDERED: ALBUTEROL SULFATE 2.5 MG/3 ML NEBU. NEB PRN (23:15)
[2021-05-27] MEDS ORDERED: POLYVINYL ALCOHOL 1.4% OPHTH SOLUTION 15ML BOTTLE. OU PRN (23:45)
[2021-05-28] VITALS (17 sets, daily range): BP systolic 130–192; BP diastolic 73–111
--- NOTE | 2021-05-28 01:00 | EKG ---
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
[2021-05-28] MEDS: chlordiazePOXIDE HCL 25 MG CAPSULE PO PRN (03:37)
[2021-05-28] MEDS: fentaNYL PF VIAL 100 MCG/2 ML VIAL IV PRN ×4 (03:50→21:49)
[2021-05-28 05:38] LABS: BASO % 0 % (0-3); EOS % 1 % (0-3); HEMATOCRIT 42.6 % (39.0-53.0); HEMOGLOBIN 14.4 g/dL (13.0-17.5); LYMPH # 1.2 x10^3/uL (1.0-4.8); LYMPH % 23 % (24-48); MEAN CORPUSCULAR HEMOGLOBIN 35 pg (25-35); MEAN CORPUSCULAR HGB CONC 34 g/dL (31-37); MEAN CORPUSCULAR VOLUME 102 fL (79-100); MONO # 0.4 x10^3/uL (0.0-1.1); MONO % 8 % (0-9); NEUT # 3.5 x10^3/uL (1.8-7.7); NEUT % 68 % (31-73); PLATELET COUNT 51 x10^3/uL (140-400); RED BLOOD COUNT 4.18 x10^6/uL (4.30-5.70); RED CELL DISTRIBUTION WIDTH 15.7 % (11.5-14.5); WHITE BLOOD COUNT 5.2 x10^3/uL (4.0-11.0)
[2021-05-28 06:00] LABS: CALCIUM 7.2 mg/dL (8.5-10.1); CREATININE 0.9 mg/dL (0.7-1.3); GFR 87.3
[2021-05-28 06:03] LABS: POTASSIUM 2.4 mmol/L (3.5-5.1)
[2021-05-28 06:04] LABS: PROTHROMBIN TIME PATIENT 15.5 SEC (11.7-14.0)
[2021-05-28] MEDS: POTASSIUM CHLORIDE 20 MEQ TABLET.ER. PO SCH ×4 (06:17→10:21)
[2021-05-28] MEDS: CARVEDILOL 3.125 MG TABLET. PO SCH ×2 (07:54→17:29)
[2021-05-28] MEDS: FERROUS SULFATE 325 MG TABLET. PO SCH ×2 (07:55→17:29)
[2021-05-28] MEDS: SPIRONOLACTONE 25 MG TABLET PO SCH (07:56)
[2021-05-28] MEDS: ALLOPURINOL 300 MG TABLET. PO SCH (08:44)
[2021-05-28] MEDS: BUMETANIDE 1 MG TABLET. PO SCH (08:44)
[2021-05-28] MEDS: LOSARTAN POTASSIUM 50 MG TABLET. PO SCH (08:45)
[2021-05-28] MEDS: MULTIVIT INFUSN,ADULT 4,VIT K 10 ML, THIAMINE INJ 100 MG, FOLIC ACID INJ 1 MG in IV NOR... IV SCH (08:46)
[2021-05-28] MEDS: PREGABALIN 75 MG CAPSULE PO SCH ×2 (08:46→21:47)
[2021-05-28] MEDS: ELECTROLYTE (ICU) PROTOCOL. MC SCH (08:47)
[2021-05-28] MEDS: SENNOSIDES/DOCUSATE 8.6/50MG TABLET. PO SCH ×2 (08:48→21:00)
[2021-05-28] MEDS: PANTOPRAZOLE 40 MG TABLET.DR. PO SCH (08:52)
[2021-05-28] MEDS: DULoxetine HCL 30 MG CAPSULE.DR PO SCH (08:52)
[2021-05-28] MEDS: FAMOTIDINE 20 MG/2 ML VIAL IVP SCH ×2 (08:52→21:45)
[2021-05-28] MEDS ORDERED: METHYL SALICYLATE/MENTHOL TOPICAL CREAM 57GM TUBE. TP PRN (09:00)
--- NOTE | 2021-05-28 11:20 | PDOC ---
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 The patient has been sober in the past and fortunately e nough as decided to quit drinking again. He has attended AA meetings and other support groups in the past and has been sober in the past. Unfortunately he attended a [employer] where he was offered a drink which led to another and apparently he had a pretty good time unfortunately he thought he could control his drinking and the day after decided to repeat the experience at the [facility] which led to more drinking including with the 4 weeks that landed him now in the hospital with alcohol withdrawal symptoms. The patient at the time of the initial evaluation in the emergency department seem to be quite agitated and also having visual hallucinations. At the time of my visit in the critical care unit the patient is more settled he has received Ativan in the emergency department and has orders for withdrawal protocol. He feels much better he is cooperative and answering all questions. The patient denies any headache no blurred vision no double vision no strokelike symptoms no chest pain no palpitations no shortness of breath no abdominal discomfort no nausea vomiting or diarrhea. Patient denies any recent sick contacts no other complaints are voiced and he feels better compared to admission. 05/28/2021 No acute events overnight. Patient seen examined bedside. No acute agitative episodes overnight. Potassium of 2.4 today. Will replace with IV and p.o. electrolyte replacement. Patient feels much better. Vitals/I&O Vitals/I&O: Vital Signs Date Time Temp Pulse Resp B/P (MAP) Pulse Ox O2 Delivery O2 Flow Rate FiO2 05/28/21 11:00 98 20 139/73 (95) 95 Room Air 05/28/21 08:01 97.6 97.6 I & O 05/27/21 05/27/21 05/28/21 15:00 23:00 07:00 Intake Total 120 ml 480 ml Output Total 300 ml Balance -180 ml 480 ml Physical Exam General: Alert, Oriented X3, Cooperative Heart: Regular rate Lungs: Clear Abdomen: Normal bowel sounds Extremities: No clubbing Labs Labs: Laboratory Tests Test 05/27/21 16:49 05/27/21 17:00 05/27/21 19:20 05/27/21 22:30 Glucose (Fingerstick) 129 mg/dL (70-99) White Blood Count 5.9 x10^3/uL (4.0-11.0) Red Blood Count 4.66 x10^6/uL (4.30-5.70) Hemoglobin 16.4 g/dL (13.0-17.5) Hematocrit 47.4 % (39.0-53.0) Mean Corpuscular Volume 102 fL (79-100) Mean Corpuscular Hemoglobin 35 pg (25-35) Mean Corpuscular Hemoglobin Concent 35 g/dL (31-37) Red Cell Distribution Width 15.4 % (11.5-14.5) Platelet Count 71 x10^3/uL (140-400) Neutrophils (%) (Auto) 68 % (31-73) Lymphocytes (%) (Auto) 21 % (24-48) Monocytes (%) (Auto) 10 % (0-9) Eosinophils (%) (Auto) 0 % (0-3) Basophils (%) (Auto) 1 % (0-3) Neutrophils # (Auto) 4.0 x10^3/uL (1.8-7.7) Lymphocytes # (Auto) 1.2 x10^3/uL (1.0-4.8) Monocytes # (Auto) 0.6 x10^3/uL (0.0-1.1) Eosinophils # (Auto) 0.0 x10^3/uL (0.0-0.7) Basophils # (Auto) 0.0 x10^3/uL (0.0-0.2) Sodium Level 140 mmol/L (136-145) Potassium Level 3.0 mmol/L (3.5-5.1) Chloride Level 96 mmol/L (98-107) Carbon Dioxide Level 30 mmol/L (21-32) Anion Gap 14 (6-14) Blood Urea Nitrogen 10 mg/dL (8-26) Creatinine 1.3 mg/dL (0.7-1.3) Estimated GFR (Cockcroft-Gault) 57.1 BUN/Creatinine Ratio 8 (6-20) Glucose Level 125 mg/dL (70-99) Calcium Level 7.5 mg/dL (8.5-10.1) Magnesium Level 0.7 mg/dL (1.8-2.4) Total Bilirubin 3.8 mg/dL (0.2-1.0) Direct Bilirubin 2.0 mg/dL (0.0-0.2) Aspartate Amino Transf (AST/SGOT) 266 U/L (15-37) Alanine Aminotransferase (ALT/SGPT) 108 U/L (16-63) Alkaline Phosphatase 280 U/L (46-116) Creatine Kinase 316 U/L (39-308) Troponin I High Sensitivity 24 ng/L (4-75) LC-Nxk-Q-Type Natriuretic Peptide 316 pg/mL (0-124) Total Protein 7.9 g/dL (6.4-8.2) Albumin 3.5 g/dL (3.4-5.0) Albumin/Globulin Ratio 0.8 (1.0-1.7) Ethyl Alcohol Level < 10 mg/dL (0-10) SARS-CoV-2 RNA (MARIAH) Negative (Negative) SARS-CoV-2 Antigen (Rapid) Negative (NEGATIVE) Urine Opiates Screen Neg (NEG) Urine Methadone Screen Neg (NEG) Urine Barbiturates Neg (NEG) Urine Phencyclidine Screen Neg (NEG) Urine Amphetamine/Methamphetamine Neg (NEG) Urine Benzodiazepines Screen Pos (NEG) Urine Cocaine Screen Neg (NEG) Urine Cannabinoids Screen Pos (NEG) Urine Ethyl Alcohol Neg (NEG) Test 05/28/21 05:00 White Blood Count 5.2 x10^3/uL (4.0-11.0) Red Blood Count 4.18 x10^6/uL (4.30-5.70) Hemoglobin 14.4 g/dL (13.0-17.5) Hematocrit 42.6 % (39.0-53.0) Mean Corpuscular Volume 102 fL (79-100) Mean Corpuscular Hemoglobin 35 pg (25-35) Mean Corpuscular Hemoglobin Concent 34 g/dL (31-37) Red Cell Distribution Width 15.7 % (11.5-14.5) Platelet Count 51 x10^3/uL (140-400) Neutrophils (%) (Auto) 68 % (31-73) Lymphocytes (%) (Auto) 23 % (24-48) Monocytes (%) (Auto) 8 % (0-9) Eosinophils (%) (Auto) 1 % (0-3) Basophils (%) (Auto) 0 % (0-3) Neutrophils # (Auto) 3.5 x10^3/uL (1.8-7.7) Lymphocytes # (Auto) 1.2 x10^3/uL (1.0-4.8) Monocytes # (Auto) 0.4 x10^3/uL (0.0-1.1) Eosinophils # (Auto) 0.0 x10^3/uL (0.0-0.7) Basophils # (Auto) 0.0 x10^3/uL (0.0-0.2) Prothrombin Time 15.5 SEC (11.7-14.0) Prothromb Time International Ratio 1.2 (0.8-1.1) Sodium Level 138 mmol/L (136-145) Potassium Level 2.4 mmol/L (3.5-5.1) Chloride Level 97 mmol/L (98-107) Carbon Dioxide Level 36 mmol/L (21-32) Anion Gap 5 (6-14) Blood Urea Nitrogen 10 mg/dL (8-26) Creatinine 0.9 mg/dL (0.7-1.3) Estimated GFR (Cockcroft-Gault) 87.3 Glucose Level 95 mg/dL (70-99) Calcium Level 7.2 mg/dL (8.5-10.1) Magnesium Level 1.7 mg/dL (1.8-2.4) Troponin I High Sensitivity 27 ng/L (4-75) Assessment and Plan Assessmemt and Plan Problems Medical Problems: (1) Alcohol withdrawal delirium Status: Acute (2) Hypokalemia Status: Acute (3) Hypomagnesemia Status: Acute Comment Review of Relevant I have reviewed the following items sang (where applicable) has been applied. Medications: Current Medications Medications (Trade) Dose Ordered Sig/Bonnie Route PRN Reason Start Time Stop Time Status Last Admin Dose Admin Multivitamins 10 ml/Thiamine HCl 100 mg/Folic Acid 1 mg/Sodium Chloride 1,011.2 ml @ 500 mls/ hr 1X ONCE IV 05/27/21 17:00 05/27/21 19:04 DC 05/27/21 17:25 Lorazepam (Ativan Inj) 2 mg 1X ONCE IVP 05/27/21 17:00 05/27/21 17:04 DC 05/27/21 17:36 Magnesium Sulfate 100 ml @ 25 mls/hr 1X ONCE IV 05/27/21 19:00 05/27/21 22:59 DC 05/27/21 20:32 Potassium Phosphate 15 mmol/ Sodium Chloride 105 ml @ 52.5 mls/hr Q2H IV 05/27/21 19:00 05/27/21 22:59 DC 05/27/21 00:00 Famotidine (Pepcid Vial) 20 mg BID IVP 05/27/21 21:00 05/28/21 08:52 Info (Icu Electrolyte Protocol) 1 ea DAILY MC 05/28/21 09:00 05/28/21 08:47 Fentanyl Citrate (Fentanyl 2ml Vial) 25 mcg PRN Q1HR PRN IV SEVERE PAIN 05/27/21 18:30 05/28/21 10:23 Senna/Docusate Sodium (Senna Plus) 1 tab BID PO 05/27/21 21:00 05/27/21 21:23 Multivitamins 10 ml/Thiamine HCl 100 mg/Folic Acid 1 mg/Sodium Chloride 1,011.2 ml @ 100 mls/ hr DAILY IV 05/28/21 09:00 05/31/21 19:07 05/28/21 08:46 Chlordiazepoxide (Librium) 50 mg PRN Q1HR PRN PO For CIWA 8-14 05/27/21 18:30 05/28/21 03:37 Lorazepam (Ativan Inj) 2 mg PRN Q15MIN PRN IV SEE COMMENTS 05/27/21 18:30 05/27/21 22:39 Allopurinol (Zyloprim) 300 mg DAILY PO 05/28/21 09:00 05/28/21 08:44 Bumetanide (Bumex) 1 mg DAILY PO 05/28/21 09:00 05/28/21 08:44 Carvedilol (Coreg) 3.125 mg BIDWMEALS PO 05/28/21 08:00 05/28/21 07:54 Hydralazine HCl (Apresoline) 50 mg TID PO 05/28/21 09:00 05/28/21 08:45 Spironolactone (Aldactone) 25 mg DAILY PO 05/28/21 09:00 05/28/21 07:56 Duloxetine HCl (Cymbalta) 60 mg DAILY PO 05/28/21 09:00 05/28/21 08:52 Ferrous Sulfate (Feosol) 325 mg BIDWMEALS PO 05/28/21 08:00 05/28/21 07:55 Losartan Potassium (Cozaar) 100 mg DAILY PO 05/28/21 09:00 05/28/21 08:45 Pantoprazole Sodium (Protonix) 40 mg DAILYAC PO 05/28/21 07:30 05/28/21 08:52 Pregabalin (Lyrica) 150 mg BID PO 05/28/21 09:00 05/28/21 08:46 Potassium Chloride (Klor-Con) 40 meq Q2H PO 05/28/21 06:15 05/28/21 10:16 DC 05/28/21 10:21 Justifications for Admission Other Justification Alcohol withdrawal JACOB MEJIA MD May 28, 2021 11:20
[2021-05-28 21:20] LABS: FECAL OB PT NEGATIVE (NEG)
[2021-05-29] VITALS: BP 157/84
[2021-05-29 04:00] VITALS: BP 187/84
[2021-05-29 08:00] VITALS: BP 199/122
[2021-05-29 08:56] LABS: ALBUMIN 2.7 g/dL (3.4-5.0); ALBUMIN/GLOBULIN RATIO 0.7 (1.0-1.7); CALCIUM 7.1 mg/dL (8.5-10.1); CREATININE 0.7 mg/dL (0.7-1.3); GFR 116.7; TOTAL BILIRUBIN 2.3 mg/dL (0.2-1.0); TOTAL PROTEIN 6.4 g/dL (6.4-8.2)
[2021-05-29 08:59] LABS: POTASSIUM 2.4 mmol/L (3.5-5.1)
[2021-05-29] MEDS: ELECTROLYTE (ICU) PROTOCOL. MC SCH (09:00)
[2021-05-29] MEDS: SENNOSIDES/DOCUSATE 8.6/50MG TABLET. PO SCH ×2 (09:00→20:43)
[2021-05-29] MEDS: FAMOTIDINE 20 MG/2 ML VIAL IVP SCH ×2 (09:15→20:42)
[2021-05-29] MEDS: chlordiazePOXIDE HCL 25 MG CAPSULE PO PRN (09:15)
[2021-05-29] MEDS: DULoxetine HCL 30 MG CAPSULE.DR PO SCH (09:16)
[2021-05-29] MEDS: POTASSIUM CHLORIDE 20 MEQ TABLET.ER. PO SCH ×4 (09:16→16:55)
[2021-05-29] MEDS: FERROUS SULFATE 325 MG TABLET. PO SCH ×2 (09:17→16:57)
[2021-05-29] MEDS: LOSARTAN POTASSIUM 50 MG TABLET. PO SCH (09:18)
[2021-05-29] MEDS: SPIRONOLACTONE 25 MG TABLET PO SCH (09:18)
[2021-05-29] MEDS: PREGABALIN 75 MG CAPSULE PO SCH ×2 (09:19→20:42)
[2021-05-29] MEDS: PANTOPRAZOLE 40 MG TABLET.DR. PO SCH (09:19)
[2021-05-29] MEDS: BUMETANIDE 1 MG TABLET. PO SCH (09:19)
[2021-05-29] MEDS: ALLOPURINOL 300 MG TABLET. PO SCH (09:20)
[2021-05-29] MEDS: CARVEDILOL 3.125 MG TABLET. PO SCH ×2 (09:21→16:56)
[2021-05-29] MEDS: MULTIVIT INFUSN,ADULT 4,VIT K 10 ML, THIAMINE INJ 100 MG, FOLIC ACID INJ 1 MG in IV NOR... IV SCH (09:39)
--- NOTE | 2021-05-29 09:50 | NUR ---
SS following for discharge planning. SS reviewed pt chart and discussed with pt RN. Pt is from home with spouse and is currently on room air. CIWA protocol. COVID19 negative. PAT team referral made for ETOH. SS will continue to follow for discharge planning.
[2021-05-29 12:00] VITALS: BP 154/85
[2021-05-29] MEDS: METHOCARBAMOL 750 MG TABLET PO PRN (12:18)
[2021-05-29] MEDS ORDERED: MAGNESIUM SULFATE 4GM 100 ML IV PRN (13:00)
--- NOTE | 2021-05-29 13:05 | PDOC ---
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 Alcohol withdrawal protocol Alcohol cessation counseling has been done Resume home medications once available for review Supportive measures Seizure precautions Further recommendations based on the clinical course DVT prophylaxis with SCDs given thrombocytopenia History of Present Illness History of Present Illness 55-year-old gentleman with past medical history of alcoholism was in his usual state of health until when he decided to stop a 4-week drinking spree that he had started. The patient has been sober in the past and fortunately enough as decided to quit drinking again. He has attended AA meetings and other support groups in the past and has been sober in the past. Unfortunately he attended a [employer] where he was offered a drink which led to another and apparently he had a pretty good time unfortunately he thought he could control his drinking and the day after decided to repeat the experience at the [facility] which led to more drinking including with the 4 weeks that landed him now in the hospital with alcohol withdrawal symptoms. The patient at the time of the initial evaluation in the emergency department seem to be quite agitated and also having visual hallucinations. At the time of my visit in the critical care unit the patient is more settled he has received Ativan in the emergency department and has orders for withdrawal protocol. He feels much better he is cooperative and answering all questions. The patient denies any headache no blurred vision no double vision no strokelike symptoms no chest pain no palpitations no shortness of breath no abdominal discomfort no nausea vomiting or diarrhea. Patient denies any recent sick contacts no other complaints are voiced and he feels better compared to admission. 05/28/2021 No acute events overnight. Patient seen examined bedside. No acute agitative episodes overnight. Potassium of 2.4 today. Will replace with IV and p.o. electrolyte replacement. Patient feels much better. 05/29/21 No acute events overnight. Patient seen examined bedside. Still on CIWA protocol but CIWA scores have been low. Potassium of 2.4 again today. Will rep lace with a total of 120 mEq both IV and p.o. electrolyte replacement. Patient's chart, labs, images were reviewed and discussed with RN. Vitals/I&O Vitals/I&O: Vital Signs Date Time Temp Pulse Resp B/P (MAP) Pulse Ox O2 Delivery O2 Flow Rate FiO2 05/29/21 09:21 166/104 05/29/21 04:00 98.7 80 24 96 Room Air 98.7 I & O 05/28/21 05/28/21 05/29/21 15:00 23:00 07:00 Intake Total 710 ml 1435.83 ml 300 ml Output Total 900 ml 200 ml 0 ml Balance -190 ml 1235.83 ml 300 ml Physical Exam General: Alert, Oriented X3, Cooperative Heart: Regular rate Lungs: Clear Abdomen: Normal bowel sounds Extremities: No clubbing Labs Labs: Laboratory Tests Test 05/28/21 18:45 05/29/21 08:20 Stool Occult Blood Negative (NEG) Sodium Level 136 mmol/L (136-145) Potassium Level 2.4 mmol/L (3.5-5.1) Chloride Level 97 mmol/L (98-107) Carbon Dioxide Level 32 mmol/L (21-32) Anion Gap 7 (6-14) Blood Urea Nitrogen 8 mg/dL (8-26) Creatinine 0.7 mg/dL (0.7-1.3) Estimated GFR (Cockcroft-Gault) 116.7 BUN/Creatinine Ratio 11 (6-20) Glucose Level 104 mg/dL (70-99) Calcium Level 7.1 mg/dL (8.5-10.1) Total Bilirubin 2.3 mg/dL (0.2-1.0) Aspartate Amino Transf (AST/SGOT) 142 U/L (15-37) Alanine Aminotransferase (ALT/SGPT) 68 U/L (16-63) Alkaline Phosphatase 203 U/L (46-116) Total Protein 6.4 g/dL (6.4-8.2) Albumin 2.7 g/dL (3.4-5.0) Albumin/Globulin Ratio 0.7 (1.0-1.7) Assessment and Plan Assessmemt and Plan Problems Medical Problems: (1) Alcohol withdrawal delirium Status: Acute (2) Hypokalemia Status: Acute (3) Hypomagnesemia Status: Acute Comment Review of Relevant I have reviewed the following items sang (where applicable) has been applied. Medications: Current Medications Medications (Trade) Dose Ordered Sig/Bonnie Route PRN Reason Start Time Stop Time Status Last Admin Dose Admin Potassium Chloride (Klor-Con) 40 meq Q2H PO 05/29/21 12:00 05/29/21 16:01 05/29/21 12:19 Magnesium Sulfate 100 ml @ 50 mls/hr PRN DAILY PRN IV SEE COMMENTS 05/29/21 13:00 05/29/21 12:22 Methocarbamol (Robaxin) 750 mg PRN Q8HRS PRN PO MUSCLE SPASMS 05/29/21 12:15 05/29/21 12:18 Justifications for Admission Other Justification Alcohol withdrawal JACOB MEJIA MD May 29, 2021 13:04
[2021-05-29 16:00] VITALS: BP 141/74
[2021-05-29 20:00] VITALS: BP 143/78
[2021-05-29] MEDS: fentaNYL PF VIAL 100 MCG/2 ML VIAL IV PRN (20:54)
[2021-05-30] VITALS: BP 127/72
[2021-05-30] MEDS: METHOCARBAMOL 750 MG TABLET PO PRN ×3 (01:29→21:26)
[2021-05-30 04:00] VITALS: BP 150/76
[2021-05-30] MEDS: fentaNYL PF VIAL 100 MCG/2 ML VIAL IV PRN ×3 (04:26→20:26)
[2021-05-30 08:00] VITALS: BP 171/86
[2021-05-30] MEDS: DULoxetine HCL 30 MG CAPSULE.DR PO SCH (08:48)
[2021-05-30] MEDS: BUMETANIDE 1 MG TABLET. PO SCH (08:48)
[2021-05-30] MEDS: POTASSIUM CHLORIDE 20 MEQ TABLET.ER. PO SCH (08:49)
[2021-05-30] MEDS: ALLOPURINOL 300 MG TABLET. PO SCH (08:49)
[2021-05-30] MEDS: CARVEDILOL 3.125 MG TABLET. PO SCH ×2 (08:49→16:37)
[2021-05-30] MEDS: FERROUS SULFATE 325 MG TABLET. PO SCH ×2 (08:49→16:37)
[2021-05-30] MEDS: LOSARTAN POTASSIUM 50 MG TABLET. PO SCH (08:50)
[2021-05-30] MEDS: SPIRONOLACTONE 25 MG TABLET PO SCH (08:50)
[2021-05-30] MEDS: PANTOPRAZOLE 40 MG TABLET.DR. PO SCH (08:50)
[2021-05-30] MEDS: PREGABALIN 75 MG CAPSULE PO SCH ×2 (08:50→20:24)
[2021-05-30] MEDS ORDERED: FLU VACC QUAD 21-22 (6MOS+) PF 0.5 ML SYRINGE. VAX IM ONE (09:00)
[2021-05-30] MEDS: ELECTROLYTE (ICU) PROTOCOL. MC SCH (09:00)
[2021-05-30] MEDS: SENNOSIDES/DOCUSATE 8.6/50MG TABLET. PO SCH ×2 (09:00→20:24)
[2021-05-30 09:30] LABS: CALCIUM 7.1 mg/dL (8.5-10.1); CREATININE 0.8 mg/dL (0.7-1.3); MAGNESIUM 1.8 mg/dL (1.8-2.4)
[2021-05-30 09:32] LABS: POTASSIUM 2.9 mmol/L (3.5-5.1)
[2021-05-30] MEDS ORDERED: POTASSIUM CHLORIDE 20 MEQ TABLET.ER. PO ONE (09:45)
[2021-05-30] MEDS: FAMOTIDINE 20 MG/2 ML VIAL IVP SCH ×2 (09:57→20:25)
[2021-05-30] MEDS: MULTIVIT INFUSN,ADULT 4,VIT K 10 ML, THIAMINE INJ 100 MG, FOLIC ACID INJ 1 MG in IV NOR... IV SCH (09:58)
[2021-05-30 12:00] VITALS: BP 152/76
--- NOTE | 2021-05-30 14:44 | PDOC ---
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 Alcohol withdrawal protocol Alcohol cessation counseling has been done Resume home medications once available for review Supportive measures Seizure precautions Further recommendations based on the clinical course DVT prophylaxis with SCDs given thrombocytopenia History of Present Illness History of Present Illness 55-year-old gentleman with past medical history of alcoholism was in his usual state of health until when he decided to stop a 4-week drinking spree that he had started. The patient has been sober in the past and fortunately enough as decided to quit drinking again. He has attended AA meetings and other support groups in the past and has been sober in the past. Unfortunately he attended a [facility] where he was offered a drink which led to another and apparently he had a pretty good time unfortunately he thought he could control his drinking and the day after decided to repeat the experience at the [facility] which led to more drinking including with the 4 weeks that landed him now in the hospital with alcohol withdrawal symptoms. The patient at the time of the initial evaluation in the emergency department seem to be quite agitated and also having visual hallucinations. At the time of my visit in the critical care unit the patient is more settled he has received Ativan in the emergency department and has orders for withdrawal protocol. He feels much better he is cooperative and answering all questions. The patient denies any headache no blurred vision no double vision no strokelike symptoms no chest pain no palpitations no shortness of breath no abdominal discomfort no nausea vomiting or diarrhea. Patient denies any recent sick contacts no other complaints are voiced and he feels better compared to admission. 05/28/2021 No acute events overnight. Patient seen examined bedside. No acute agitative episodes overnight. Potassium of 2.4 today. Will replace with IV and p.o. electrolyte replacement. Patient feels much better. 05/29/21 No acute events overnight. Patient seen examined bedside. Still on CIWA protocol but CIWA scores have been low. Potassium of 2.4 again today. Will rep lace with a total of 120 mEq both IV and p.o. electrolyte replacement. Patient's chart, labs, images were reviewed and discussed with RN. 05/30/2021 No acute events overnight. Patient seen examined bedside. CIWA score has been low. Patient feels better but his potassium today is still low at 2.9. We will continue with IV and p.o. replacement. Continue also with vitamin suppl ementation for prevention of Warnicke's. Patient's chart, labs, images were reviewed and discussed with RN Vitals/I&O Vitals/I&O: Vital Signs Date Time Temp Pulse Resp B/P (MAP) Pulse Ox O2 Delivery O2 Flow Rate FiO2 05/30/21 14:34 16 96 Room Air 05/30/21 14:23 79 150/76 05/30/21 12:00 98.2 98.2 I & O 05/29/21 05/29/21 05/30/21 15:00 23:00 07:00 Intake Total 1728 ml 200 ml Output Total 700 ml 950 ml 350 ml Balance -700 ml 778 ml -150 ml Physical Exam General: Alert, Oriented X3, Cooperative Heart: Regular rate Lungs: Clear Abdomen: Normal bowel sounds Extremities: No clubbing Labs Labs: Laboratory Tests Test 05/30/21 08:45 Sodium Level 136 mmol/L (136-145) Potassium Level 2.9 mmol/L (3.5-5.1) Chloride Level 98 mmol/L (98-107) Carbon Dioxide Level 30 mmol/L (21-32) Anion Gap 8 (6-14) Blood Urea Nitrogen 4 mg/dL (8-26) Creatinine 0.8 mg/dL (0.7-1.3) Estimated GFR (Cockcroft-Gault) 100.0 Glucose Level 84 mg/dL (70-99) Calcium Level 7.1 mg/dL (8.5-10.1) Magnesium Level 1.8 mg/dL (1.8-2.4) Assessment and Plan Assessmemt and Plan Problems Medical Problems: (1) Alcohol withdrawal delirium Status: Acute (2) Hypokalemia Status: Acute (3) Hypomagnesemia Status: Acute Comment Review of Relevant I have reviewed the following items sang (where applicable) has been applied. Medications: Current Medications Medications (Trade) Dose Ordered Sig/Bonnie Route PRN Reason Start Time Stop Time Status Last Admin Dose Admin Potassium Chloride (Klor-Con) 40 meq 1X ONCE PO 05/30/21 09:45 05/30/21 09:51 DC 05/30/21 09:57 Justifications for Admission Other Justification Alcohol withdrawal JACOB MEJIA MD May 30, 2021 14:44
[2021-05-30 16:00] VITALS: BP 150/76
--- NOTE | 2021-05-30 16:10 | NUR ---
SS following up with discharge planning. SS reviewed pt chart and discussed with pt RN. Pt is currently on room air. COVID19 negative. Potassium replaced today. PAT team met with pt and provided resources. Discharge plan is to home when medically ready for discharge. SS will continue to follow for discharge planning.
[2021-05-30 19:52] VITALS: BP 181/95
[2021-05-31] VITALS: BP 197/102
[2021-05-31 00:33] VITALS: BP 158/92
[2021-05-31] MEDS: fentaNYL PF VIAL 100 MCG/2 ML VIAL IV PRN ×2 (01:09→04:28)
[2021-05-31 03:08] LABS: CALCIUM 7.6 mg/dL (8.5-10.1); CREATININE 0.7 mg/dL (0.7-1.3); GFR 116.7; MAGNESIUM 1.8 mg/dL (1.8-2.4); POTASSIUM 3.2 mmol/L (3.5-5.1)
[2021-05-31 04:00] VITALS: BP 159/87
[2021-05-31 08:00] VITALS: BP 173/83
[2021-05-31] MEDS: SENNOSIDES/DOCUSATE 8.6/50MG TABLET. PO SCH (08:19)
[2021-05-31] MEDS: ELECTROLYTE (ICU) PROTOCOL. MC SCH (09:00)
[2021-05-31] MEDS ORDERED: FAMOTIDINE 20 MG TABLET. PO SCH (09:00)
[2021-05-31] MEDS: POTASSIUM CHLORIDE 20 MEQ TABLET.ER. PO SCH (09:05)
[2021-05-31] MEDS: DULoxetine HCL 30 MG CAPSULE.DR PO SCH (09:05)
[2021-05-31] MEDS: PANTOPRAZOLE 40 MG TABLET.DR. PO SCH (09:06)
[2021-05-31] MEDS: LOSARTAN POTASSIUM 50 MG TABLET. PO SCH (09:06)
[2021-05-31] MEDS: ALLOPURINOL 300 MG TABLET. PO SCH (09:06)
[2021-05-31] MEDS: FERROUS SULFATE 325 MG TABLET. PO SCH (09:06)
[2021-05-31] MEDS: METHOCARBAMOL 750 MG TABLET PO PRN (09:06)
[2021-05-31] MEDS: SPIRONOLACTONE 25 MG TABLET PO SCH (09:06)
[2021-05-31] MEDS: PREGABALIN 75 MG CAPSULE PO SCH (09:06)
[2021-05-31 09:07] VITALS: BP 173/83
[2021-05-31] MEDS: BUMETANIDE 1 MG TABLET. PO SCH (09:07)
[2021-05-31] MEDS: CARVEDILOL 3.125 MG TABLET. PO SCH (09:07)
[2021-05-31] MEDS: MULTIVIT INFUSN,ADULT 4,VIT K 10 ML, THIAMINE INJ 100 MG, FOLIC ACID INJ 1 MG in IV NOR... IV SCH (09:46)
--- NOTE | 2021-05-31 10:35 | NUR ---
pt assessment completed this morning, pt to go home this afternoon, pt had 40 mEq potassium ordered daily, pt potassium 3.2 this morning, spoke with dr maguire and he wanted an additional 40 mEq, which was ordered for 2 hours after morning dose. discussed with pt the poc, he agreed.
[2021-05-31] MEDS ORDERED: POTASSIUM CHLORIDE 20 MEQ TABLET.ER. PO ONE (11:00)
[2021-05-31] MEDS ORDERED: SENN-209 PO (11:44)
[2021-05-31] MEDS ORDERED: METH-562 PO (11:44)
[2021-05-31] MEDS ORDERED: THIA100T57 PO (11:44)
--- NOTE | 2021-05-31 11:47 | DISCH ---
DISCHARGE INSTRUCTIONS Condition on Discharge Condition on Discharge: Stable Activity After Discharge Activity Instructions for Disc: Activity as tolerated Bathing Instructions: Shower-keep dressing dry, No Tub Bath until see Lifting Instructions after Dis: No heavy lifting Exercise Instruction after Dis: Exercise per therapy Driving Instructions after Dis: Do not drive Weight Bearing Status after Di: As tolerated Diet after Discharge Diet after Discharge: Cardiac Diet Texture: Regular Liquid Texture: Thin Liquid Swallowing Supervision: None needed Wound Incision Care Wound/Incision Care: Change dressing Wound Care Equipment: Dressings, Sutures/rio Contacting the DRChantel after DC Call your doctor for: If your condition worsens Follow-Up Follow up with: PCP within 2 weeks of discharge Follow Up With: Alcohol cessation resources Treatment/Equipment after DC Adaptive Equipment Issued: None JACOB MEJIA MD May 31, 2021 11:47
--- NOTE | 2021-05-31 14:05 | NUR ---
Discharge instructions reviewed with pt. All questions answered. PIV and tele dc'd. Robaxin rx called in to [facility]. discharge instructions, education materials and belongings all sent with pt.
[2021-06-01] MEDS ORDERED: MULTIVITAMIN with MINERAL TABLET. PO SCH (09:00)
--- NOTE | 2021-06-03 13:06 | PDOC3 ---
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 The patient has been sober in the past and fortunately enough as decided to quit drinking again. He has attended AA meetings and other support groups in the past and has been sober in the past. Unfortunately he attended a [employer] where he was offered a drink which led to another and apparently he had a pretty good time unfortunately he thought he could control his drinking and the day after decided to repeat the experience at the [facility] which led to more drinking including with the 4 weeks that landed him now in the hospital with alcohol withdrawal symptoms. The patient at the time of the initial evaluation in the emergency department seem to be quite agitated and also having visual hallucinations. At the time of my visit in the critical care unit the patient is more settled he has received Ativan in the emergency department and has orders for withdrawal protocol. He feels much better he is cooperative and answering all questions. The patient denies any headache no blurred vision no double vision no strokelike symptoms no chest pain no palpitations no shortness of breath no abdominal discomfort no nausea vomiting or diarrhea. Patient denies any recent sick contacts no other complaints are voiced and he feels better compared to admission. 05/28/2021 No acute events overnight. Patient seen examined bedside. No acute agitative episodes overnight. Potassium of 2.4 today. Will replace with IV and p.o. electrolyte replacement. Patient feels much better. 05/29/21 No acute events overnight. Patient seen examined bedside. Still on CIWA protocol but CIWA scores have been low. Potassium of 2.4 again today. Will replace with a total of 120 mEq both IV and p.o. electrolyte replacement. Patient's chart, labs, images were reviewed and discussed with RN. 05/30/2021 No acute events overnight. Patient seen examined bedside. CIWA score has been low. Patient feels better but his potassium today is still low at 2.9. We will continue with IV and p.o. replacement. Continue also with vitamin suppleme ntation for prevention of Warnicke's. Patient's chart, labs, images were reviewed and discussed with RN Patient clinically stable at time of discharge. Potassium levels normalized to 3.2. 1 dose of 40 mEq potassium p.o. was given before discharge. Patient will need to also continue with vitamin supplementation. All resources were provided for getting help to stop drinking. Rest of hospital course was uneventful. Disposition: Disposition/Orders: D/C to Home Activity: Activity: Resume previous activity Diet: Diet: Cardiac Medications: Home Meds Active Scripts Thiamine Hcl (VITAMIN B-1) 100 Mg Tablet, 1 TAB PO DAILY for supplement for 30 Days, #30 TAB 0 Refills Prov:JACOB MEJIA MD 05/31/21 Sennosides/Docusate Sodium (Stool Softener-Stimulant Lax) 1 Each Tablet, 1 TAB PO BID for constipation for 30 Days, #60 TAB Prov:JACOB MEJIA MD 05/31/21 Methocarbamol (METHOCARBAMOL) 750 Mg Tablet, 750 MG PO PRN Q8HRS PRN for MUSCLE SPASMS for 90 Days, #120 TAB Prov:JACOB MEJIA MD 05/31/21 Reported Medications Escitalopram Oxalate (LEXAPRO) 10 Mg Tablet, 10 MG PO DAILY for ANTI-DEPRESSANT, TAB 0 Refills 05/27/21 Doxepin Hcl (DOXEPIN HCL) 10 Mg Capsule, 1 CAP PO QHS for as directed, #30 CAP 2 Refills 05/27/21 Peg 400/Hypromellose/Glycerin (ARTIFICIAL TEARS DROPS) 15 Ml Drops, 1 DROP EACHEYE PRN Q6HRS PRN for dry eye for 30 Days, ML 0 Refills 01/20/21 Multivitamin (Multivitamin) 1 Each Tablet, 1 EACH PO DAILY for supplement, TAB 01/19/21 Aspirin (ASPIRIN) 81 Mg Tab.chew, 1 TAB PO DAILY for heart health, #30 TAB 3 Refills 01/19/21 Albuterol Sulfate (Proair Hfa) 8.5 Gm Hfa.aer.ad, 2 PUFF IH PRN Q4-6HRS PRN for wheezing for 21 Days, #1 INHALER 0 Refills 01/19/21 Methyl Salicylate/Menthol (BENGAY GREASELESS CREAM) 57 Gm Cream..g., 1 BREN TP TID for chronic pain for 10 Days, #57 GM 0 Refills 01/19/21 Ferrous Gluconate (FERROUS GLUCONATE) 240 Mg Tablet, 1 TAB PO DAILY for supplement for 30 Days, #30 TAB 0 Refills 01/19/21 Omeprazole (OMEPRAZOLE) 20 Mg Capsule.dr, 1 CAP PO DAILY for GERD, #30 CAP 5 Refills 01/19/21 Hydralazine Hcl (HYDRALAZINE HCL) 50 Mg Tablet, 1 TAB PO TID for HTN, #90 TAB 5 Refills 01/19/21 Potassium Chloride (POTASSIUM CHLORIDE ) 20 Meq Tablet.er, 40 MEQ PO DAILY for SUPPLEMENT, TAB.SR 01/19/21 Spironolactone (SPIRONOLACTONE) 25 Mg Tablet, 1 TAB PO DAILY for CHF, #90 TAB 1 Refill 01/19/21 Pregabalin (LYRICA) 150 Mg Capsule, 1 CAP PO BID for neuropathy, #60 CAP 5 Refills 01/19/21 Allopurinol (ALLOPURINOL) 300 Mg Tablet, 1 TAB PO DAILY for gout, #30 TAB 5 Refills 01/19/21 Losartan Potassium (LOSARTAN POTASSIUM) 100 Mg Tablet, 100 MG PO DAILY for HYPERTENSION, TAB 01/19/21 Carvedilol (COREG ) 3.125 Mg Tablet, 3.125 MG PO BIDWMEALS for CARDIAC, TAB 01/19/21 Bumetanide (BUMETANIDE) 1 Mg Tablet, 1 TAB PO DAILY for CHF, #90 TAB 1 Refill 01/19/21 Duloxetine Hcl (CYMBALTA) 60 Mg Capsule.dr, 1 CAP PO DAILY for depression, #90 CAP 3 Refills 01/19/21 Discontinued Reported Medications Naproxen (NAPROXEN) 500 Mg Tablet, 1 TAB PO BID for pain for 30 Days, #60 TAB 0 Refills 05/27/21 Hydroxyzine Hcl (HYDROXYZINE HCL) 25 Mg Tablet, 1 TAB PO PRN TID PRN for ANXIETY / AGITATION, #30 TAB 01/20/21 Scheduled Allopurinol (Allopurinol), 1 TAB PO DAILY, (Reported) Aspirin (Aspirin), 1 TAB PO DAILY, (Reported) Bumetanide (Bumetanide), 1 TAB PO DAILY, (Reported) Carvedilol (Coreg ), 3.125 MG PO BIDWMEALS, (Reported) Doxepin Hcl (Doxepin Hcl), 1 CAP PO QHS, (Reported) Duloxetine Hcl (Cymbalta), 1 CAP PO DAILY, (Reported) Escitalopram Oxalate (Lexapro), 10 MG PO DAILY, (Reported) Ferrous Gluconate (Ferrous Gluconate), 1 TAB PO DAILY, (Reported) Hydralazine Hcl (Hydralazine Hcl), 1 TAB PO TID, (Reported) Losartan Potassium (Losartan Potassium), 100 MG PO DAILY, (Reported) Methyl Salicylate/Menthol (Bengay Greaseless Cream), 1 BREN TP TID, (Reported) Multivitamin (Multivitamin), 1 EACH PO DAILY, (Reported) Omeprazole (Omeprazole), 1 CAP PO DAILY, (Reported) Potassium Chloride (Potassium Chloride ), 40 MEQ PO DAILY, (Reported) Pregabalin (Lyrica), 1 CAP PO BID, (Reported) Sennosides/Docusate Sodium (Stool Softener-Stimulant Lax), 1 TAB PO BID Spironolactone (Spironolactone), 1 TAB PO DAILY, (Reported) Thiamine Hcl (Vitamin B-1), 1 TAB PO DAILY Scheduled PRN Albuterol Sulfate (Proair Hfa), 2 PUFF IH PRN Q4-6HRS PRN for wheezing, (Reported) Methocarbamol (Methocarbamol), 750 MG PO PRN Q8HRS PRN for MUSCLE SPASMS Peg 400/Hypromellose/Glycerin (Artificial Tears Drops), 1 DROP EACHEYE PRN Q6HRS PRN for dry eye, (Reported) Discontinued Medications Hydroxyzine Hcl (Hydroxyzine Hcl), 1 TAB PO PRN TID PRN for ANXIETY / AGITATION, (Reported) Naproxen (Naproxen), 1 TAB PO BID, (Reported) Total Time: Total Time: Total time spent was 32 minutes in preparing scripts, discharge planning with SWI and RN and preparing this discharge summary Patient seen and examined on day of discharge. No acute abnormal findings. Justicifation of Admission Dx: Justifications for Admission: Justification of Admission Dx: Yes JACOB MEJIA MD Jun 03, 2021 13:06
== END 2021-05-31 14:15 | disposition home or self-care (01) | DRG 433 ==
LOC: ER 16:45 → 1 WEST ICU 18:10
PROVIDERS: ADMIT Internal Medicine; ATTEND Internal Medicine
DX: K70.10 Alcoholic hepatitis without ascites (principal); F10.231 Alcohol dependence with withdrawal delirium; E87.6 Hypokalemia; D69.6 Thrombocytopenia, unspecified; E11.9 Type 2 diabetes mellitus without complications; E78.5 Hyperlipidemia, unspecified; E83.42 Hypomagnesemia; E88.09 Other disorders of plasma-protein metabolism, not elsewhere classified; I11.0 Hypertensive heart disease with heart failure; I50.9 Heart failure, unspecified; J45.909 Unspecified asthma, uncomplicated; R29.810 Facial weakness; F41.9 Anxiety disorder, unspecified; K21.9 Gastro-esophageal reflux disease without esophagitis; M10.9 Gout, unspecified; Z20.822 Contact with and (suspected) exposure to COVID-19
CPT/HCPCS: 36415; 70450; 71045; 80048; 80053; 80076; 80307; 82274; 82550; 82962; 83735; 83880; 84484; 85025; 85610; 87426; 90471; 90686; 93005; 94760; 96365; 96375; G0480; J2060; J3010; J3411; J3475; J3490; J7030; U0003; U0005; 99285-25; G0378

== ENCOUNTER 2021-09-17 14:04 | Inpatient (IN) | payer MEDICARE ==
[~2021-09-17] VITALS: Ht 185.4 cm; Wt 66.2 kg
[~2021-09-17 14:04] MED LIST changes: +DOXE10CA PO; +LEXAPRO10 MG PO; +METH-562 PO; +NAPR-514 PO; +PEG15DRO14 EACHEYE; -PEG15DRO4 EACHEYE; +SENN-209 PO; +THIA100T57 PO
[2021-09-17 15:24] LABS: BASO % 1 % (0-3); EOS % 1 % (0-3); HEMATOCRIT 40.5 % (39.0-53.0); HEMOGLOBIN 13.7 g/dL (13.0-17.5); LYMPH # 0.7 x10^3/uL (1.0-4.8); LYMPH % 21 % (24-48); MEAN CORPUSCULAR HEMOGLOBIN 36 pg (25-35); MEAN CORPUSCULAR HGB CONC 34 g/dL (31-37); MEAN CORPUSCULAR VOLUME 106 fL (79-100); MONO # 0.5 x10^3/uL (0.0-1.1); MONO % 15 % (0-9); NEUT % 62 % (31-73); PLATELET COUNT 55 x10^3/uL (140-400); RED BLOOD COUNT 3.82 x10^6/uL (4.30-5.70); RED CELL DISTRIBUTION WIDTH 15.4 % (11.5-14.5); WHITE BLOOD COUNT 3.2 x10^3/uL (4.0-11.0)
[2021-09-17] MEDS ORDERED: IOHEXOL 350 MG/ML 100 ML VIAL. IV ONE (15:30)
[2021-09-17 15:33] LABS: PROTHROMBIN TIME PATIENT 15.4 SEC (11.7-14.0)
[2021-09-17 15:40] LABS: CALCIUM 7.7 mg/dL (8.5-10.1); CREATININE 0.8 mg/dL (0.7-1.3); GFR 99.6; POTASSIUM 3.5 mmol/L (3.5-5.1)
[2021-09-17] MEDS ORDERED: CONTRAST GIVEN. MC PRN (15:45)
--- NOTE | 2021-09-17 15:50 | RAD ---
Exam Date: 09/17/2021 3:15 PM XR CHEST 1V Indication: Reason: chest pain, right-sided abd pain, +Streeter Claros sign to right abd wall / Spl. Inst ructions: / History: . Comparison: May 27, 2021 FINDINGS/ IMPRESSION: The cardiac silhouette is enlarged without congestion. There is no focal consolidation, pleural effusion or pneumothorax. The visualized osseous structures are intact. Electronically signed by: Maxi Sinclair MD (09/17/2021 3:48 PM) [id number]
[2021-09-17 15:53] LABS: ALBUMIN/GLOBULIN RATIO 0.8 (1.0-1.7); DIRECT BILIRUBIN 1.3 mg/dL (0.0-0.2); TOTAL BILIRUBIN 2.4 mg/dL (0.2-1.0)
--- NOTE | 2021-09-17 16:35 | RAD ---
STUDY: US BILATERAL LOWEREXTREMITY VENOUS DOPPLER INDICATION: Bilateral lower extremity swelling. DVT. TECHNIQUE: Color-flow and pulsed wave duplex ultrasound with compression of venous structures of the bilateral lower extremities. COMPARISON: None. FINDINGS: Duplex ultrasound with compression of the deep venous structures of the bilateral lower extremities f rom the common femoral vein through the popliteal vein is negative for DVT. The posterior tibial and peroneal veins are segmentally visualized and patent where seen. Normal veno us waveforms and augmentation are noted throughout. IMPRESSION: No deep venous thrombosis throughout either lower extremity. Electronically signed by: MELISSA JHA MD (09/17/2021 4:33 PM) [facility]
--- NOTE | 2021-09-17 16:41 | PHYS DOC ---
Past Medical History Past Medical History: Alcoholism, CHF, GERD, Hypertension Additional Past Medical Histor: RECENT CELLULITIS, elevated LFTs, NEUROPATHY Past Surgical History: Cholecystectomy, Other Additional Past Surgical Histo: LT FOOT, hernia Smoking Status: Never Smoker Alcohol Use: Heavy Additional Information: 12 PACK SELTZER DAILY Drug Use: None Adult General Chief Complaint Chief Complaint: MULTIPLE COMPLAINTS HPI HPI The patient is a comorbid 56-year-old male with a history of alcoholism (drinks between 12 and 24 alcoholic drinks per day), hypertension, hyperlipidemia, some degree of heart failure (?diastolic as EF is documented as normal per last echo), alcoholic cirrhosis. Volume overload, presumably multifactorial, is managed with daily loop diuretic and spironolactone, which which patient states he has been compliant. Mr. Nunez presents for evaluation of multiple concerns. First, he notes right-sided abdominal bruising/ecchymosis with atraumatic onset over the past several days. Associated abdominal distention which is worse than usual for him. Second, he notes progressive shortness of breath with exertion over the past couple of days. Third, he notes nonpleuritic nonexertional chest discomfort yesterday only, but not today. This is described as midsternal and nonradiating and patient has a hard time further characterizing it. Fourth, he notes unilateral left sided leg swelling which has been present for the past few days. This is not painful. Patient denies fevers, vomiting, hematemesis, hematochezia or melena, upper respiratory congestion/rhinorrhea, cough, sore throat, flank pain, midline back pain, dysuria, hematuria, polyuria or oliguria, changes in bowel habits. Vital signs are appropriate here, he is ambulatory to his ED bed without difficulty and he is in no acute distress. Review of Systems Review of Systems A 12 point review of systems was completed and was negative except where noted in HPI above. Current Medications Current Medications Current Medications Medications (Trade) Dose Ordered Sig/Bonnie Start Time Stop Time Status Last Admin Dose Admin Furosemide (Lasix) 40 mg 1X ONCE 09/17/21 18:00 09/17/21 18:05 DC Info (CONTRAST GIVEN -- Rx MONITORING) 1 each PRN DAILY PRN 09/17/21 15:45 09/19/21 15:44 Iohexol (Omnipaque 350 Mg/ml) 100 ml 1X ONCE 3/6/22 15:30 09/17/21 15:37 DC 09/17/21 15:30 90 ML Allergies Allergies Allergies Coded Allergies Type Severity Reaction Last Updated Verified No Known Drug Allergies 01/10/16 No Physical Exam Physical Exam Morbidly obese 56-year-old male appearing chronically ill but nontoxic and in no acute distress. Head is normocephalic and atraumatic. Neck is supple and nontender. No JVD. Oropharynx is moist. Lungs are clear to auscultation at all stations. There is a normal S1 and S2 without rubs or gallops and capillary refill is appropriate, less than 2 seconds globally. Abdomen is somewhat tensely distended without focal discomfort anywhere and with bruising/ecchymosis noted to the entire right abdominal wall, worse lower down. Skin is warm and dry without cyanosis, clubbing or edema. Psychiatrically, the patient demonstrates appropriate mood and affect and is alert. Evaluation of the extremities reveals BUEs and BLEs neurovascularly intact distally with strength out of five, sensation intact light touch in all nerve distributions, radial, DP and PT pulses 2+ and equal bilaterally, capillary refill less than 2 seconds, hands and feet warm and well-perfused. 2+ pitting peripheral edema to the left lower extremity below the level of the knee, asymmetric. No erythema to the bilateral legs. Current Patient Data Vital Signs Vital Signs Date Time Temp Pulse Resp B/P (MAP) Pulse Ox O2 Delivery O2 Flow Rate FiO2 09/17/21 16:45 87 144/65 (91) Room Air 09/17/21 15:50 96 09/17/21 14:08 98.1 24 98.1 Lab Values Laboratory Tests Test 09/17/21 14:25 09/17/21 17:00 White Blood Count 3.2 x10^3/uL (4.0-11.0) L Red Blood Count 3.82 x10^6/uL (4.30-5.70) L Hemoglobin 13.7 g/dL (13.0-17.5) Hematocrit 40.5 % (39.0-53.0) Mean Corpuscular Volume 106 fL (79-100) H Mean Corpuscular Hemoglobin 36 pg (25-35) H Mean Corpuscular Hemoglobin Concent 34 g/dL (31-37) Red Cell Distribution Width 15.4 % (11.5-14.5) H Platelet Count 55 x10^3/uL (140-400) L Neutrophils (%) (Auto) 62 % (31-73) Lymphocytes (%) (Auto) 21 % (24-48) L Monocytes (%) (Auto) 15 % (0-9) H Eosinophils (%) (Auto) 1 % (0-3) Basophils (%) (Auto) 1 % (0-3) Neutrophils # (Auto) 2.0 x10^3/uL (1.8-7.7) Lymphocytes # (Auto) 0.7 x10^3/uL (1.0-4.8) L Monocytes # (Auto) 0.5 x10^3/uL (0.0-1.1) Eosinophils # (Auto) 0.0 x10^3/uL (0.0-0.7) Basophils # (Auto) 0.0 x10^3/uL (0.0-0.2) Prothrombin Time 15.4 SEC (11.7-14.0) H Prothrombin Time INR 1.2 (0.8-1.1) H Activated Partial Thromboplast Time 35 SEC (24-38) Sodium Level 137 mmol/L (136-145) Potassium Level 3.5 mmol/L (3.5-5.1) Chloride Level 101 mmol/L (98-107) Carbon Dioxide Level 24 mmol/L (21-32) Anion Gap 12 (6-14) Blood Urea Nitrogen 14 mg/dL (8-26) Creatinine 0.8 mg/dL (0.7-1.3) Estimated GFR (Cockcroft-Gault) 99.6 BUN/Creatinine Ratio 18 (6-20) Glucose Level 122 mg/dL (70-99) H Lactic Acid Level 1.6 mmol/L (0.4-2.0) Calcium Level 7.7 mg/dL (8.5-10.1) L Total Bilirubin 2.4 mg/dL (0.2-1.0) H Direct Bilirubin 1.3 mg/dL (0.0-0.2) H Gamma Glutamyl Transpeptidase 933 U/L (10-85) H Aspartate Amino Transferase (AST) 155 U/L (15-37) H Alanine Aminotransferase (ALT) 47 U/L (16-63) Alkaline Phosphatase 151 U/L (46-116) H Troponin I High Sensitivity 13 ng/L (4-75) OI-Dbr-A-Type Natriuretic Peptide 46 pg/mL (0-124) Total Protein 7.0 g/dL (6.4-8.2) Albumin 3.0 g/dL (3.4-5.0) L Albumin/Globulin Ratio 0.8 (1.0-1.7) L Lipase 197 U/L (73-393) Ethyl Alcohol Level < 10 mg/dL (0-10) Urine Collection Type Unknown Urine Color Yellow Urine Clarity Clear Urine pH 6.5 (<5.0-8.0) Urine Specific [place] 1.010 (1.000-1.030) Urine Protein Negative mg/dL (NEG-TRACE) Urine Glucose (UA) Negative mg/dL (NEG) Urine Ketones (Stick) Negative mg/dL (NEG) Urine Blood Negative (NEG) Urine Nitrite Negative (NEG) Urine Bilirubin Negative (NEG) Urine Urobilinogen Dipstick 0.2 mg/dL (0.2 mg/dL) Urine Leukocyte Esterase Negative (NEG) Urine RBC 0 /HPF (0-2) Urine WBC 0 /HPF (0-4) Urine Bacteria 0 /HPF (0-FEW) Laboratory Tests 09/17/21 14:25 Laboratory Tests 09/17/21 14:25 EKG EKG Sinus rhythm, rate 95, no acute ST elevation or depression, DE 120, QRS 88, QTc 499, EP interpretation. Nonischemic tracing, intervals appropriate. Baseline artifact modestly limits interpretation. Radiology/Procedures Radiology/Procedures STUDY: US BILATERAL LOWEREXTREMITY VENOUS DOPPLER INDICATION: Bilateral lower extremity swelling. DVT. TECHNIQUE: Color-flow and pulsed wave duplex ultrasound with compression of venous structures of the bilateral lower extremities. COMPARISON: None. FINDINGS: Duplex ultrasound with compression of the deep venous structures of the bilateral lower extremities from the common femoral vein through the popliteal vein is negative for DVT. The posterior tibial and peroneal veins are segmentally visualized and patent where seen. Normal venous waveforms and augmentation are noted throughout. IMPRESSION: No deep venous thrombosis throughout either lower extremity. Electronically signed by: MELISSA JHA MD (09/17/2021 4:33 PM) [facility] DICTATED and SIGNED BY: MELISSA JHA MD DATE: 09/17/21 [id number] 0 Exam Date: 09/17/2021 3:15 PM XR CHEST 1V Indication: Reason: chest pain, right-sided abd pain, +Streeter Claros sign to right abd wall / Spl. Instructions: / History: . Comparison: May 27, 2021 FINDINGS/ IMPRESSION: The cardiac silhouette is enlarged without congestion. There is no focal consolidation, pleural effusion or pneumothorax. The visualized osseous structures are intact. Electronically signed by: García Sinclair MD (09/17/2021 3:48 PM) [facility] [place] DICTATED and SIGNED BY: GARCÍA SINCLAIR MD DATE: 09/17/21 [id number] 0 Exam: CT of chest, abdomen and pelvis with contrast INDICATION: Chest pain, right-sided abdominal pain TECHNIQUE: Sequential axial images through the chest, abdomen and pelvis obtained following the administration of 90 mL of Isovue-370 IV contrast. Sagittal and coronal reformatted images were reconstructed from the axial data and reviewed. Exposure: One or more of the following in the visualized dose reduction techniques were utilized for this examination: 1. Automated exposure control 2. Adjustment of the MA and/or KV according to patient size 3. Use of iterative of reconstructive technique Comparisons: 01/19/2021 FINDINGS: Visualized portions of the thyroid are unremarkable. No enlargement is not lymph nodes are identified. Heart size is normal. No pericardial effusion. Mild coronary artery calcifications. Mild aneurysmal dilatation of ascending aorta measuring up to 4.3 cm in diameter. Pulmonary artery is not enlarged. Airways are patent. No consolidation or pneumothorax. No suspicious lung nodules. No pleural effusion or thickening. Nodular contour the liver. Spleen is enlarged. Gallbladder is absent. Pancreas and adrenals are unremarkable. No perinephric inflammation or hydronephrosis. No renal or ureteral calculi are identified. Bladder is partially distended and not well evaluated. Prostate is not enlarged. Large and small bowel are unremarkable. Small amount of free fluid noted in the pelvis. Appendix identified and appears unremarkable. No free intra-abdominal air. Abdominal aorta has normal course and caliber. Abdominal vasculature is patent. No enlarged intra-abdominal lymph nodes are identified. No suspicious osseous lesions or acute fractures. Diastases of the midline an terior abdominal wall. IMPRESSION: 1. Small amount of free fluid noted at the pelvis which is nonspecific. This could relate to small amount of intra-abdominal ascites versus reactive to an underlying infectious or inflammatory process. Correlate with symptomatology to determine the need for follow-up imaging. 2. Cirrhotic morphology of liver with secondary sequela of portal hypertension including splenomegaly and portal venous collateral vasculature 3. Mild aneurysmal dilatation of ascending aorta measuring up to 4.3 cm in diameter. Electronically signed by: Lin Hanson MD (09/17/2021 5:42 PM) [facility] DICTATED and SIGNED BY: LIN HANSON MD DATE: 09/17/21 [id number] 0 Course & Med Decision Making Course & Med Decision Making Will check large work-up as noted and will then reevaluate. 1800: Patient resting comfortably in no acute distress on serial reassessments. Large work-up is as above, generally without much evidence of acute process. Favor a degree of volume overload as a cause for patient's significantly worsened dyspnea with exertion over the past few days. Have given a dose of IV Lasix. Will need further evaluation for the dyspnea, intermittent/stuttering chest pain over the past 1 to 2 days, and for the large area of abdominal wall ecchymosis, atraumatic, noted to his right abdomen. This fortunately does not seem to correlate to any acute intra-abdominal process but is still concerning given its extent and the patient's baseline coagulopathy secondary to liver disease. Will bring in for further care under hospitalist Dr. Barbour, who graciously accepts. Dragon Disclaimer Dragon Disclaimer This electronic medical record was generated, in whole or in part, using a voice recognition dictation system. Departure Departure Impression: Primary Impression: Other chest pain Additional Impressions: Abnormal bruising Exertional dyspnea Disposition: ADMITTED INPATIENT Condition: STABLE Referrals: UNKNOWN PCP NAME (PCP) Problem Qualifiers JUJU CARRILLO MD Sep 17, 2021 16:41
[2021-09-17 17:43] LABS: BACTERIA,URINE 0 /HPF (0-FEW); BILIRUBIN,URINE NEGATIVE (NEG); CLARITY,URINE CLEAR; COLOR,URINE YELLOW; NITRITE,URINE NEGATIVE (NEG); PH,URINE 6.5 (<5.0-8.0); PROTEIN,URINE NEGATIVE (NEG-TRACE); RBC,URINE 0 /HPF (0-2); UROBILINOGEN,URINE 0.2 mg/dL (0.2 mg/dL); WBC,URINE 0 /HPF (0-4)
--- NOTE | 2021-09-17 17:45 | RAD ---
Exam: CT of chest, abdomen and pelvis with contrast INDICATION: Chest pain, right-sided abdominal pain TECHNIQUE: Sequential axial images through the chest, abdomen and pelvis obtained following the admin istration of 90 mL of Isovue-370 IV contrast. Sagittal and coronal reformatted images were reconstruc jac from the axial data and reviewed. Exposure: One or more of the following in the visualized dose reduction techniques were utilized for this examination: 1. Automated exposure control 2. Adjustment of the MA and/or KV according to patient size 3. Use of iterative of reconstructive technique Comparisons: 01/19/2021 FINDINGS: Visualized portions of the thyroid are unremarkable. No enlargement is not lymph nodes are identified . Heart size is normal. No pericardial effusion. Mild coronary artery calcifications. Mild aneurysmal d ilatation of ascending aorta measuring up to 4.3 cm in diameter. Pulmonary artery is not enlarged. Airways are patent. No consolidation or pneumothorax. No suspicious lung nodules. No pleural effusion or thickening. Nodular contour the liver. Spleen is enlarged. Gallbladder is absent. Pancreas and adrenals are unrem arkable. No perinephric inflammation or hydronephrosis. No renal or ureteral calculi are identified. Bladder is partially distended and not well evaluated. Prostate is not enlarged. Large and small bowel are unremarkable. Small amount of free fluid noted in the pelvis. Appendix iden tified and appears unremarkable. No free intra-abdominal air. Abdominal aorta has normal course and caliber. Abdominal vasculature is patent. No enlarged intra-abdominal lymph nodes are identified. No suspicious osseous lesions or acute fractures. Diastases of the midline anterior abdominal wall. IMPRESSION: 1. Small amount of free fluid noted at the pelvis which is nonspecific. This could relate to small a mount of intra-abdominal ascites versus reactive to an underlying infectious or inflammatory process. Correlate with symptomatology to determine the need for follow-up imaging. 2. Cirrhotic morphology of liver with secondary sequela of portal hypertension including splenomegal y and portal venous collateral vasculature 3. Mild aneurysmal dilatation of ascending aorta measuring up to 4.3 cm in diameter. Electronically signed by: Lin Leonardo MD (09/17/2021 5:42 PM) [facility]
[2021-09-17] MEDS ORDERED: FUROSEMIDE 40 MG/4 ML VIAL. IVP ONE (18:00)
[2021-09-17] MEDS ORDERED: ACETAMINOPHEN 325 MG TABLET. PO PRN (18:30)
[2021-09-17] MEDS ORDERED: ONDANSETRON PF 4 MG/2 ML VIAL. IVP PRN (18:30)
[2021-09-17] MEDS ORDERED: ASPIRIN 325 MG TABLET PO ONE (18:30)
--- NOTE | 2021-09-17 18:55 | NUR ---
The patient, EMY RANDALL, 56 y/o, M admitted by MICHELE ESTEBAN III, DO, was given written information regarding hospital policies, unit procedures and contact persons. Valuables were checked and left with him.
[2021-09-17 19:00] VITALS: BP 140/74
--- NOTE | 2021-09-17 20:22 | HP ---
DATE OF SERVICE: 09/17/2021 ADMIT DATE: 09/17/2021 CHIEF COMPLAINT: Abdominal erythema, shortness of breath, lower extremity edema of the left leg, chest discomfort. HISTORY OF PRESENT ILLNESS: The patient is a pleasant 56-year-old male who drinks too much. He actually drinks about 24 alcoholic beverages a day. He presents to the ER with abdominal pain and some cellulitis on his right abdomen. He also has some swelling of the left leg. We checked for clot. There is no clot, but he seems to have heart failure. He also has known cirrhosis and he seems to be volume overloaded. I discussed the case with ER physician. We are going to admit the patient and give him IV Lasix and antibiotics. PAST MEDICAL HISTORY: Alcoholism, he drinks 24 alcoholic beverages a day, CHF, GERD, hypertension, cellulitis, cirrhosis, cholecystectomy, left foot surgery, hernia repair. ALLERGIES: None. FAMILY HISTORY: Diabetes. SOCIAL HISTORY: He drinks heavily. No smoking or drugs. MEDICATIONS: Reviewed, please refer to the MRAD. REVIEW OF SYSTEMS: GENERAL: No history of weight change, weakness or fevers. SKIN: No bruising, hair changes or rashes. EYES: No blurred, double or loss of vision. NOSE AND THROAT: No history of nosebleeds, hoarseness or sore throat. HEART: He complains of chest pain. LUNGS: He complains of shortness of breath. GASTROINTESTINAL: He complains of right-sided abdominal erythema. GENITOURINARY: No history of frequency, urgency, hesitancy or nocturia. NEUROLOGIC: Denies history of numbness, tingling, tremor or weakness. PSYCHIATRIC: No history of panic, anxiety or depression. ENDOCRINE: No history of heat or cold intolerance, polyuria or polydipsia. EXTREMITIES: He complains of left lower extremity swelling. PHYSICAL EXAMINATION: VITALS: Within normal limits and are stable. GENERAL: No apparent distress. Alert and oriented. HEENT: Normal cephalic atraumatic, external auditory canals are patent. EYES: Extraocular muscles are intact, pupils are equally round and reactive to light and accommodation. MUSCULOSKELETAL: Well developed, well nourished, good range of motion. ENDOCRINE: No thyromegaly was palpated. LYMPHATICS: No cervical chain or axillary nodes were noted. HEMATOPOIETIC: No bruising. NECK: Supple, no JVD, no thyromegaly was noted. LUNGS: He has some fine bibasilar crackles. HEART: RRR, S1, S2 present. Peripheral pulses intact, no obvious murmurs were noted. ABDOMEN: His abdomen is distended. There is some cellulitis on the right. EXTREMITIES: He has 3+ edema on the left. NEUROLOGIC: Normal speech, normal tone. A and O x 3, moves all extremities, no obvious focal deficits. PSYCHIATRIC: Normal affect, normal mood. Stable. SKIN: No ulcerations or rashes, good skin turgor, no jaundice. VASCULAR: Good capillary refill, neurovascular bundle appears to be intact. IMAGING: Ultrasound of the lower extremities is negative for DVTs. Chest x-ray shows cardiomegaly and CT of the abdomen shows a small amount of free fluid noted in the pelvis, which is nonspecific, chronic liver disease secondary to portal hypertension and a small aneurysmal dilatation of the ascending aorta measuring 4.3 cm. ASSESSMENT AND PLAN: Abdominal wall cellulitis, acute on chronic systolic and diastolic heart failure, cirrhosis, alcoholism, volume overload, chest pain. The patient has been admitted. We will start IV antibiotics, IV Lasix, home meds, deep venous thrombosis prophylaxis. Full code. Consult Cardiology. Serial enzymes, serial EKGs. P.r.n. Tylenol, p.r.n. Zofran. IDALIA DR: LEE/tab TID: [id number]
[2021-09-17] MEDS: cefTRIAXone IV Push 1 GM VIAL. IVP SCH (20:39)
[2021-09-17 23:02] VITALS: BP 142/74
[2021-09-18] VITALS (7 sets, daily range): BP systolic 133–163; BP diastolic 63–93
--- NOTE | 2021-09-18 00:42 | EKG ---
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
[2021-09-18 06:31] LABS: BASO % 1 % (0-3); EOS % 1 % (0-3); HEMATOCRIT 37.2 % (39.0-53.0); HEMOGLOBIN 12.5 g/dL (13.0-17.5); LYMPH # 0.9 x10^3/uL (1.0-4.8); LYMPH % 28 % (24-48); MEAN CORPUSCULAR HEMOGLOBIN 36 pg (25-35); MEAN CORPUSCULAR HGB CONC 34 g/dL (31-37); MEAN CORPUSCULAR VOLUME 108 fL (79-100); MONO # 0.4 x10^3/uL (0.0-1.1); MONO % 13 % (0-9); NEUT % 58 % (31-73); PLATELET COUNT 48 x10^3/uL (140-400); RED BLOOD COUNT 3.44 x10^6/uL (4.30-5.70); RED CELL DISTRIBUTION WIDTH 15.9 % (11.5-14.5); WHITE BLOOD COUNT 3.4 x10^3/uL (4.0-11.0)
[2021-09-18 06:57] LABS: ALBUMIN 2.9 g/dL (3.4-5.0); ALBUMIN/GLOBULIN RATIO 0.8 (1.0-1.7); CALCIUM 7.6 mg/dL (8.5-10.1); CREATININE 0.9 mg/dL (0.7-1.3); POTASSIUM 3.2 mmol/L (3.5-5.1); TOTAL BILIRUBIN 2.2 mg/dL (0.2-1.0); TOTAL PROTEIN 6.6 g/dL (6.4-8.2)
[2021-09-18 06:59] LABS: CHOLESTEROL/HDL RATIO 4.8
--- NOTE | 2021-09-18 08:54 | PDOC2 ---
CONSULT Date of Consult Date of Consult DATE: 09/18/21 TIME: 08:50 Reason for Consult Reason for Consult: Abdominal wall erythema Referring Physician Referring Physician: Km Identification/Chief Complaint Chief Complaint Chest pain shortness of breath Source Source: Chart review, Patient History of Present Illness Reason for Visit: Patient states he was on the toilet having a bowel movement when he coughed and sneezed at the same time he felt a sharp pain on the right rib cage. Shortly thereafter he became short of breath with some chest pain and noticed a discoloration of the right flank Past Medical History Cardiovascular: CHF, HTN, Hyperlipidemia Pulmonary: Asthma, Other CENTRAL NERVOUS SYSTEM: Seizure GI: GERD Heme/Onc: No pertinent hx Hepatobiliary: Other Psych: Anxiety, Other Musculoskeletal: low back pain, Osteoarthritis Rheumatologic: Gout Infectious disease: No pertinent hx Renal/: No pertinent hx Endocrine: Diabetes Past Surgical History Past Surgical History: Arthroscopy, Cholecystectomy, Hernia Repair Family History Family History: No Significant, Family History Unknown Social History ALCOHOL: heavy Drugs: None Lives: with Family Current Problem List Problem List Problems Medical Problems: (1) Abnormal bruising Status: Acute (2) Exertional dyspnea Status: Acute (3) Other chest pain Status: Acute Current Medications Current Medications Current Medications Iohexol (Omnipaque 350 Mg/ml) 100 ml 1X ONCE IV Last administered on 09/17/21at 15:30; Start 09/17/21 at 15:30; Stop 09/17/21 at 15:37; Status DC Info (CONTRAST GIVEN -- Rx MONITORING) 1 each PRN DAILY PRN MC SEE COMMENTS; Start 09/17/21 at 15:45; Stop 09/19/21 at 15:44 Furosemide (Lasix) 40 mg 1X ONCE IVP Last administered on 09/17/21at 18:29; Start 09/17/21 at 18:00; Stop 09/17/21 at 18:05; Status DC Aspirin (Yusuf Aspirin) 325 mg 1X ONCE PO Last administered on 09/17/21at 20:42; Start 09/17/21 at 18:30; Stop 09/17/21 at 18:36; Status DC Ondansetron HCl (Zofran) 4 mg PRN Q8HRS PRN IVP NAUSEA/VOMITING; Start 09/17/21 at 18:30; Stop 09/18/21 at 18:29 Acetaminophen (Tylenol) 650 mg PRN Q4HRS PRN PO FEVER > 100.3'F Last administered on 09/18/21at 02:07; Start 09/17/21 at 18:30; Stop 09/18/21 at 18:29 Ceftriaxone Sodium (Rocephin) 1 gm Q24H IVP Last administered on 09/17/21at 20:39; Start 09/17/21 at 20:00 Active Scripts Active Vitamin B-1 (Thiamine Hcl) 100 Mg Tablet 1 Tab PO DAILY 30 Days Stool Softener-Stimulant Lax (Sennosides/Docusate Sodium) 1 Each Tablet 1 Tab PO BID 30 Days Methocarbamol 750 Mg Tablet 750 Mg PO PRN Q8HRS PRN 90 Days Reported Lexapro (Escitalopram Oxalate) 10 Mg Tablet 10 Mg PO DAILY Doxepin Hcl 10 Mg Capsule 1 Cap PO QHS Artificial Tears Drops (Peg 400/Hypromellose/Glycerin) 15 Ml Drops 1 Drop EACHEYE PRN Q6HRS PRN 30 Days Multivitamin 1 Each Tablet 1 Each PO DAILY Aspirin 81 Mg Tab.chew 1 Tab PO DAILY Proair Hfa (Albuterol Sulfate) 8.5 Gm Hfa.aer.ad 2 Puff IH PRN Q4-6HRS PRN 21 Days Bengay Greaseless Cream (Methyl Salicylate/Menthol) 57 Gm Cream..g. 1 Ross TP TID 10 Days Ferrous Gluconate 240 Mg Tablet 1 Tab PO DAILY 30 Days Omeprazole 20 Mg Capsule. 1 Cap PO DAILY Hydralazine Hcl 50 Mg Tablet 1 Tab PO TID Potassium Chloride (Potassium Chloride) 20 Meq Tablet.er 40 Meq PO DAILY Spironolactone 25 Mg Tablet 1 Tab PO DAILY Lyrica (Pregabalin) 150 Mg Capsule 1 Cap PO BID Allopurinol 300 Mg Tablet 1 Tab PO DAILY Losartan Potassium 100 Mg Tablet 100 Mg PO DAILY Coreg (Carvedilol) 3.125 Mg Tablet 3.125 Mg PO BIDWMEALS Bumetanide 1 Mg Tablet 1 Tab PO DAILY Cymbalta (Duloxetine Hcl) 60 Mg Capsule. 1 Cap PO DAILY Allergies Allergies: Coded Allergies: No Known Drug Allergies (Unverified , 01/10/16) ROS General: No: Chills, Night Sweats, Fatigue, Malaise, Appetite, Other PSYCHOLOGICAL ROS: No: Anxiety, Behavioral Disorder, Concentration difficultie, Decreased libido, Depression, Disorientation, Hallucinations, Hostility, Irritablity, Memory difficulties, Mood Swings, Obsessive thoughts, Physical abuse, Sexual abuse, Sleep disturbances, Suicidal ideation, Other Eyes: No Blurry vision, No Decreased vision, No Double vision, No Dry eyes, No Excessive tearing, No Eye Pain, No Itchy Eyes, No Loss of vision, No Photophobia, No Scotomata, No Uses contacts, No Uses glasses, No Other HEENT: No: Heacaches, Visual Changes, Hearing change, Nasal congestion, Nasal discharge, Oral lesions, Sinus pain, Sore Throat, Epistaxis, Sneezing, Snoring, Tinnitus, Vertigo, Vocal changes, Other ALLERGY AND IMMUNOLOGY: No: Hives, Insect Bite Sensitivity, Itchy/Watery Eyes, Nasal Congestion, Post Nasal Drip, Seasonal Allergies, Other Hematological and Lymphatic: No: Bleeding Problems, Blood Clots, Blood Transfusions, Brusing, Night Sweats, Pallor, Swollen Lymph Nodes, Other ENDOCRINE: No: Breast Changes, Galactorrhea, Hair Pattern Changes, Hot Flashes, Malaise/lethargy, Mood Swings, Palpitations, Polydipsia/polyuria, Skin Changes, Temperature Intolerance, Unexpected Weight Changes, Other Breast: No New/Changing Breast Lumps, No Nipple changes, No Nipple discharge, No Other Respiratory: YES: Shortness of breath Cardiovascular: yes Chest Pain Gastrointestinal: No Nausea, No Vomiting, No Abdominal Pain, No Diarrhea, No Constipation, No Melena, No Hematochezia, No Other Genitourinary: No Dysuria, No Frequency, No Incontinence, No Hematuria, No Retention, No Discharge, No Urgency, No Pain, No Flank Pain, No Other, No , No , No , No , No , No , No Musculoskeletal: No Gait Disturbance, No Joint Pain, No Joint Stiffness, No Joint Swelling, No Muscle Pain, No Muscular Weakness, No Pain In:, No Swelling In:, No Other Neurological: No Behavorial Changes, No Bowel/Bladder ControlChng, No Confusion, No Dizziness, No Gait Disturbance, No Headaches, No Impaired Coord/balance, No Memory Loss, No Numbness/Tingling, No Seizures, No Speech Problems, No Tremors, No Visual Changes, No Weakness, No Other Skin: No Dry Skin, No Eczema, No Hair Changes, No Lumps, No Mole Changes, No Mottling, No Nail Changes, No Pruritus, No Rash, No Skin Lesion Changes, No Other, No Acne Physical Exam General: Alert, Oriented X3, Cooperative, No acute distress HEENT: Atraumatic, PERRLA, EOMI Lungs: Clear to auscultation, Normal air movement Heart: Regular rate Abdomen: Normal bowel sounds, Soft, No tenderness, Other (Appears to be he hematoma contusion on the right flank no erythema mildly tender) Skin: No significant lesion Neuro: Normal speech Psych/Mental Status: Mental status NL Vitals VITALS Vital Signs Date Time Temp Pulse Resp B/P (MAP) Pulse Ox O2 Delivery O2 Flow Rate FiO2 09/18/21 08:30 Room Air 09/18/21 03:05 98.2 75 20 141/69 (93) 96 98.2 Labs Labs Laboratory Tests Test 09/17/21 14:25 09/17/21 17:00 09/17/21 20:32 09/17/21 23:35 White Blood Count 3.2 x10^3/uL (4.0-11.0) Red Blood Count 3.82 x10^6/uL (4.30-5.70) Hemoglobin 13.7 g/dL (13.0-17.5) Hematocrit 40.5 % (39.0-53.0) Mean Corpuscular Volume 106 fL (79-100) Mean Corpuscular Hemoglobin 36 pg (25-35) Mean Corpuscular Hemoglobin Concent 34 g/dL (31-37) Red Cell Distribution Width 15.4 % (11.5-14.5) Platelet Count 55 x10^3/uL (140-400) Neutrophils (%) (Auto) 62 % (31-73) Lymphocytes (%) (Auto) 21 % (24-48) Monocytes (%) (Auto) 15 % (0-9) Eosinophils (%) (Auto) 1 % (0-3) Basophils (%) (Auto) 1 % (0-3) Neutrophils # (Auto) 2.0 x10^3/uL (1.8-7.7) Lymphocytes # (Auto) 0.7 x10^3/uL (1.0-4.8) Monocytes # (Auto) 0.5 x10^3/uL (0.0-1.1) Eosinophils # (Auto) 0.0 x10^3/uL (0.0-0.7) Basophils # (Auto) 0.0 x10^3/uL (0.0-0.2) Prothrombin Time 15.4 SEC (11.7-14.0) Prothromb Time International Ratio 1.2 (0.8-1.1) Activated Partial Thromboplast Time 35 SEC (24-38) Sodium Level 137 mmol/L (136-145) Potassium Level 3.5 mmol/L (3.5-5.1) Chloride Level 101 mmol/L (98-107) Carbon Dioxide Level 24 mmol/L (21-32) Anion Gap 12 (6-14) Blood Urea Nitrogen 14 mg/dL (8-26) Creatinine 0.8 mg/dL (0.7-1.3) Estimated GFR (Cockcroft-Gault) 99.6 BUN/Creatinine Ratio 18 (6-20) Glucose Level 122 mg/dL (70-99) Lactic Acid Level 1.6 mmol/L (0.4-2.0) Calcium Level 7.7 mg/dL (8.5-10.1) Total Bilirubin 2.4 mg/dL (0.2-1.0) Direct Bilirubin 1.3 mg/dL (0.0-0.2) Gamma Glutamyl Transpeptidase 933 U/L (10-85) Aspartate Amino Transf (AST/SGOT) 155 U/L (15-37) Alanine Aminotransferase (ALT/SGPT) 47 U/L (16-63) Alkaline Phosphatase 151 U/L (46-116) Troponin I High Sensitivity 13 ng/L (4-75) 14 ng/L (4-75) 12 ng/L (4-75) UI-Ehf-S-Type Natriuretic Peptide 46 pg/mL (0-124) Total Protein 7.0 g/dL (6.4-8.2) Albumin 3.0 g/dL (3.4-5.0) Albumin/Globulin Ratio 0.8 (1.0-1.7) Lipase 197 U/L (73-393) Ethyl Alcohol Level < 10 mg/dL (0-10) Urine Collection Type Unknown Urine Color Yellow Urine Clarity Clear Urine pH 6.5 (<5.0-8.0) Urine Specific [place] 1.010 (1.000-1.030) Urine Protein Negative mg/dL (NEG-TRACE) Urine Glucose (UA) Negative mg/dL (NEG) Urine Ketones (Stick) Negative mg/dL (NEG) Urine Blood Negative (NEG) Urine Nitrite Negative (NEG) Urine Bilirubin Negative (NEG) Urine Urobilinogen Dipstick 0.2 mg/dL (0.2 mg/dL) Urine Leukocyte Esterase Negative (NEG) Urine RBC 0 /HPF (0-2) Urine WBC 0 /HPF (0-4) Urine Bacteria 0 /HPF (0-FEW) Test 09/18/21 05:30 White Blood Count 3.4 x10^3/uL (4.0-11.0) Red Blood Count 3.44 x10^6/uL (4.30-5.70) Hemoglobin 12.5 g/dL (13.0-17.5) Hematocrit 37.2 % (39.0-53.0) Mean Corpuscular Volume 108 fL (79-100) Mean Corpuscular Hemoglobin 36 pg (25-35) Mean Corpuscular Hemoglobin Concent 34 g/dL (31-37) Red Cell Distribution Width 15.9 % (11.5-14.5) Platelet Count 48 x10^3/uL (140-400) Neutrophils (%) (Auto) 58 % (31-73) Lymphocytes (%) (Auto) 28 % (24-48) Monocytes (%) (Auto) 13 % (0-9) Eosinophils (%) (Auto) 1 % (0-3) Basophils (%) (Auto) 1 % (0-3) Neutrophils # (Auto) 2.0 x10^3/uL (1.8-7.7) Lymphocytes # (Auto) 0.9 x10^3/uL (1.0-4.8) Monocytes # (Auto) 0.4 x10^3/uL (0.0-1.1) Eosinophils # (Auto) 0.0 x10^3/uL (0.0-0.7) Basophils # (Auto) 0.0 x10^3/uL (0.0-0.2) Sodium Level 140 mmol/L (136-145) Potassium Level 3.2 mmol/L (3.5-5.1) Chloride Level 104 mmol/L (98-107) Carbon Dioxide Level 26 mmol/L (21-32) Anion Gap 10 (6-14) Blood Urea Nitrogen 11 mg/dL (8-26) Creatinine 0.9 mg/dL (0.7-1.3) Estimated GFR (Cockcroft-Gault) 87.0 BUN/Creatinine Ratio 12 (6-20) Glucose Level 86 mg/dL (70-99) Calcium Level 7.6 mg/dL (8.5-10.1) Total Bilirubin 2.2 mg/dL (0.2-1.0) Aspartate Amino Transf (AST/SGOT) 141 U/L (15-37) Alanine Aminotransferase (ALT/SGPT) 45 U/L (16-63) Alkaline Phosphatase 145 U/L (46-116) Total Protein 6.6 g/dL (6.4-8.2) Albumin 2.9 g/dL (3.4-5.0) Albumin/Globulin Ratio 0.8 (1.0-1.7) Triglycerides Level 104 mg/dL (0-150) Cholesterol Level 129 mg/dL (0-200) LDL Cholesterol, Calculated 81 mg/dL (0-100) VLDL Cholesterol, Calculated 21 mg/dL (0-40) Non-HDL Cholesterol Calculated 102 mg/dL (0-129) HDL Cholesterol 27 mg/dL (40-60) Cholesterol/HDL Ratio 4.8 Laboratory Tests Test 09/17/21 14:25 09/17/21 17:00 09/17/21 20:32 09/17/21 23:35 White Blood Count 3.2 x10^3/uL (4.0-11.0) Red Blood Count 3.82 x10^6/uL (4.30-5.70) Hemoglobin 13.7 g/dL (13.0-17.5) Hematocrit 40.5 % (39.0-53.0) Mean Corpuscular Volume 106 fL (79-100) Mean Corpuscular Hemoglobin 36 pg (25-35) Mean Corpuscular Hemoglobin Concent 34 g/dL (31-37) Red Cell Distribution Width 15.4 % (11.5-14.5) Platelet Count 55 x10^3/uL (140-400) Neutrophils (%) (Auto) 62 % (31-73) Lymphocytes (%) (Auto) 21 % (24-48) Monocytes (%) (Auto) 15 % (0-9) Eosinophils (%) (Auto) 1 % (0-3) Basophils (%) (Auto) 1 % (0-3) Neutrophils # (Auto) 2.0 x10^3/uL (1.8-7.7) Lymphocytes # (Auto) 0.7 x10^3/uL (1.0-4.8) Monocytes # (Auto) 0.5 x10^3/uL (0.0-1.1) Eosinophils # (Auto) 0.0 x10^3/uL (0.0-0.7) Basophils # (Auto) 0.0 x10^3/uL (0.0-0.2) Prothrombin Time 15.4 SEC (11.7-14.0) Prothromb Time International Ratio 1.2 (0.8-1.1) Activated Partial Thromboplast Time 35 SEC (24-38) Sodium Level 137 mmol/L (136-145) Potassium Level 3.5 mmol/L (3.5-5.1) Chloride Level 101 mmol/L (98-107) Carbon Dioxide Level 24 mmol/L (21-32) Anion Gap 12 (6-14) Blood Urea Nitrogen 14 mg/dL (8-26) Creatinine 0.8 mg/dL (0.7-1.3) Estimated GFR (Cockcroft-Gault) 99.6 BUN/Creatinine Ratio 18 (6-20) Glucose Level 122 mg/dL (70-99) Lactic Acid Level 1.6 mmol/L (0.4-2.0) Calcium Level 7.7 mg/dL (8.5-10.1) Total Bilirubin 2.4 mg/dL (0.2-1.0) Direct Bilirubin 1.3 mg/dL (0.0-0.2) Gamma Glutamyl Transpeptidase 933 U/L (10-85) Aspartate Amino Transf (AST/SGOT) 155 U/L (15-37) Alanine Aminotransferase (ALT/SGPT) 47 U/L (16-63) Alkaline Phosphatase 151 U/L (46-116) Troponin I High Sensitivity 13 ng/L (4-75) 14 ng/L (4-75) 12 ng/L (4-75) IA-Qlg-M-Type Natriuretic Peptide 46 pg/mL (0-124) Total Protein 7.0 g/dL (6.4-8.2) Albumin 3.0 g/dL (3.4-5.0) Albumin/Globulin Ratio 0.8 (1.0-1.7) Lipase 197 U/L (73-393) Ethyl Alcohol Level < 10 mg/dL (0-10) Urine Collection Type Unknown Urine Color Yellow Urine Clarity Clear Urine pH 6.5 (<5.0-8.0) Urine Specific [place] 1.010 (1.000-1.030) Urine Protein Negative mg/dL (NEG-TRACE) Urine Glucose (UA) Negative mg/dL (NEG) Urine Ketones (Stick) Negative mg/dL (NEG) Urine Blood Negative (NEG) Urine Nitrite Negative (NEG) Urine Bilirubin Negative (NEG) Urine Urobilinogen Dipstick 0.2 mg/dL (0.2 mg/dL) Urine Leukocyte Esterase Negative (NEG) Urine RBC 0 /HPF (0-2) Urine WBC 0 /HPF (0-4) Urine Bacteria 0 /HPF (0-FEW) Test 09/18/21 05:30 White Blood Count 3.4 x10^3/uL (4.0-11.0) Red Blood Count 3.44 x10^6/uL (4.30-5.70) Hemoglobin 12.5 g/dL (13.0-17.5) Hematocrit 37.2 % (39.0-53.0) Mean Corpuscular Volume 108 fL (79-100) Mean Corpuscular Hemoglobin 36 pg (25-35) Mean Corpuscular Hemoglobin Concent 34 g/dL (31-37) Red Cell Distribution Width 15.9 % (11.5-14.5) Platelet Count 48 x10^3/uL (140-400) Neutrophils (%) (Auto) 58 % (31-73) Lymphocytes (%) (Auto) 28 % (24-48) Monocytes (%) (Auto) 13 % (0-9) Eosinophils (%) (Auto) 1 % (0-3) Basophils (%) (Auto) 1 % (0-3) Neutrophils # (Auto) 2.0 x10^3/uL (1.8-7.7) Lymphocytes # (Auto) 0.9 x10^3/uL (1.0-4.8) Monocytes # (Auto) 0.4 x10^3/uL (0.0-1.1) Eosinophils # (Auto) 0.0 x10^3/uL (0.0-0.7) Basophils # (Auto) 0.0 x10^3/uL (0.0-0.2) Sodium Level 140 mmol/L (136-145) Potassium Level 3.2 mmol/L (3.5-5.1) Chloride Level 104 mmol/L (98-107) Carbon Dioxide Level 26 mmol/L (21-32) Anion Gap 10 (6-14) Blood Urea Nitrogen 11 mg/dL (8-26) Creatinine 0.9 mg/dL (0.7-1.3) Estimated GFR (Cockcroft-Gault) 87.0 BUN/Creatinine Ratio 12 (6-20) Glucose Level 86 mg/dL (70-99) Calcium Level 7.6 mg/dL (8.5-10.1) Total Bilirubin 2.2 mg/dL (0.2-1.0) Aspartate Amino Transf (AST/SGOT) 141 U/L (15-37) Alanine Aminotransferase (ALT/SGPT) 45 U/L (16-63) Alkaline Phosphatase 145 U/L (46-116) Total Protein 6.6 g/dL (6.4-8.2) Albumin 2.9 g/dL (3.4-5.0) Albumin/Globulin Ratio 0.8 (1.0-1.7) Triglycerides Level 104 mg/dL (0-150) Cholesterol Level 129 mg/dL (0-200) LDL Cholesterol, Calculated 81 mg/dL (0-100) VLDL Cholesterol, Calculated 21 mg/dL (0-40) Non-HDL Cholesterol Calculated 102 mg/dL (0-129) HDL Cholesterol 27 mg/dL (40-60) Cholesterol/HDL Ratio 4.8 Assessment/Plan Assessment/Plan Right flank discoloration likely hematoma secondary to traumatic cough and mild anticoagulation from his cirrhosis. Hematoma appears stable No surgical plans HAN RODRIGUEZ MD Sep 18, 2021 08:54
--- NOTE | 2021-09-18 10:04 | PDOC2 ---
GEOFF RAHMAN PLUMBER MAINTENANCE 09/18/21 1004: CARDIAC CONSULT DATE OF CONSULT Date of Consult DATE: 09/18/21 TIME: 09:50 REASON FOR CONSULT Reason for Consult: Chest pain REFERRING PHYSICIAN Referring Physician: Dr. Fajardo SOURCE Source: Chart review, Patient HISTORY OF PRESENT ILLNESS HISTORY OF PRESENT ILLNESS This is a 56 yo male who presented secondary to abdominal distention, bilateral LE edema, and episode of chest pain. Patient reports he was on the toilet having a bowel movement when he coughed and sneezed at the same time he felt a sharp pain on the right rib cage. He developed swelling/bruising in his right flank that extended to his right abdomen. Reports a couple of episodes of very brief sharp pains in his left chest on Saturday night and Saturday morning. No associated dizziness, diaphoresis, palpitations, or shortness of breath. Does reports some bilateral LE edema, which has improved with Lasix therapy. Reports compliance with diuretic therapy at home. Has a history of alcoholic cirrhosis and unfortunately continues to drink heavily. PAST MEDICAL HISTORY Past Medical History Cardiovascular: CHF, HTN, Hyperlipidemia Pulmonary: Asthma, Other (RM) CENTRAL NERVOUS SYSTEM: Seizure GI: GERD Hepatobiliary: Other (alcoholic cirrhosis) Psych: Anxiety, Other (alcohol abuse) Musculoskeletal: low back pain, Osteoarthritis Rheumatologic: Gout ENT: Allergic Rhinitis, Other (tooth abscess) Endocrine: Diabetes PAST SURGICAL HISTORY Past Surgical History Arthroscopy (left ankle), Cholecystectomy, Hernia Repair FAMILY HISTORY Family History Family History Unknown SOCIAL HISTORY Smoke: No ALCOHOL: heavy Drugs: Marijuana Lives: with Family CURRENT MEDICATIONS CURRENT MEDICATIONS Current Medications Medications (Trade) Dose Ordered Sig/Bonnie Route PRN Reason Start Time Stop Time Status Last Admin Dose Admin Iohexol (Omnipaque 350 Mg/ml) 100 ml 1X ONCE IV 09/17/21 15:30 09/17/21 15:37 DC 09/17/21 15:30 Furosemide (Lasix) 40 mg 1X ONCE IVP 09/17/21 18:00 09/17/21 18:05 DC 09/17/21 18:29 Aspirin (Yusuf Aspirin) 325 mg 1X ONCE PO 09/17/21 18:30 09/17/21 18:36 DC 09/17/21 20:42 Acetaminophen (Tylenol) 650 mg PRN Q4HRS PRN PO FEVER > 100.3'F 09/17/21 18:30 09/18/21 18:29 09/18/21 02:07 Ceftriaxone Sodium (Rocephin) 1 gm Q24H IVP 09/17/21 20:00 09/17/21 20:39 ALLERGIES ALLERGIES: Coded Allergies: No Known Drug Allergies (Unverified , 01/10/16) ROS Review of System 14 point ROS conducted with pertinent positives noted above in HPI PHYSICAL EXAM General: Alert, Oriented X3, Cooperative, No acute distress HEENT: Atraumatic Lungs: Clear to auscultation Heart: Regular rate Abdomen: Other (obese. right flank, abdomen ecchymosis. ascites ) Extremities: Other (1+ bilateral LE edema ) Skin: No significant lesion Neuro: Normal speech, Sensation intact Psych/Mental Status: Mental status NL, Mood NL MUSCULOSKELETAL: Osteoarthritic changes both hands VITALS/I&O VITALS/I&O: Vital Signs Date Time Temp Pulse Resp B/P (MAP) Pulse Ox O2 Delivery O2 Flow Rate FiO2 09/18/21 08:30 Room Air 09/18/21 07:00 97.8 99 16 154/79 (104) 95 97.8 I & O 09/17/21 09/17/21 09/18/21 15:00 23:00 07:00 Output Total 700 ml Balance -700 ml LABS Lab: Laboratory Tests Test 09/17/21 14:25 09/17/21 17:00 09/17/21 20:32 09/17/21 23:35 White Blood Count 3.2 x10^3/uL (4.0-11.0) L Red Blood Count 3.82 x10^6/uL (4.30-5.70) L Hemoglobin 13.7 g/dL (13.0-17.5) Hematocrit 40.5 % (39.0-53.0) Mean Corpuscular Volume 106 fL (79-100) H Mean Corpuscular Hemoglobin 36 pg (25-35) H Mean Corpuscular Hemoglobin Concent 34 g/dL (31-37) Red Cell Distribution Width 15.4 % (11.5-14.5) H Platelet Count 55 x10^3/uL (140-400) L Neutrophils (%) (Auto) 62 % (31-73) Lymphocytes (%) (Auto) 21 % (24-48) L Monocytes (%) (Auto) 15 % (0-9) H Eosinophils (%) (Auto) 1 % (0-3) Basophils (%) (Auto) 1 % (0-3) Neutrophils # (Auto) 2.0 x10^3/uL (1.8-7.7) Lymphocytes # (Auto) 0.7 x10^3/uL (1.0-4.8) L Monocytes # (Auto) 0.5 x10^3/uL (0.0-1.1) Eosinophils # (Auto) 0.0 x10^3/uL (0.0-0.7) Basophils # (Auto) 0.0 x10^3/uL (0.0-0.2) Prothrombin Time 15.4 SEC (11.7-14.0) H Prothrombin Time INR 1.2 (0.8-1.1) H Activated Partial Thromboplast Time 35 SEC (24-38) Sodium Level 137 mmol/L (136-145) Potassium Level 3.5 mmol/L (3.5-5.1) Chloride Level 101 mmol/L (98-107) Carbon Dioxide Level 24 mmol/L (21-32) Anion Gap 12 (6-14) Blood Urea Nitrogen 14 mg/dL (8-26) Creatinine 0.8 mg/dL (0.7-1.3) Estimated GFR (Cockcroft-Gault) 99.6 BUN/Creatinine Ratio 18 (6-20) Glucose Level 122 mg/dL (70-99) H Lactic Acid Level 1.6 mmol/L (0.4-2.0) Calcium Level 7.7 mg/dL (8.5-10.1) L Total Bilirubin 2.4 mg/dL (0.2-1.0) H Direct Bilirubin 1.3 mg/dL (0.0-0.2) H Gamma Glutamyl Transpeptidase 933 U/L (10-85) H Aspartate Amino Transferase (AST) 155 U/L (15-37) H Alanine Aminotransferase (ALT) 47 U/L (16-63) Alkaline Phosphatase 151 U/L (46-116) H Troponin I High Sensitivity 13 ng/L (4-75) 14 ng/L (4-75) 12 ng/L (4-75) UU-Mdv-Z-Type Natriuretic Peptide 46 pg/mL (0-124) Total Protein 7.0 g/dL (6.4-8.2) Albumin 3.0 g/dL (3.4-5.0) L Albumin/Globulin Ratio 0.8 (1.0-1.7) L Lipase 197 U/L (73-393) Ethyl Alcohol Level < 10 mg/dL (0-10) Urine Collection Type Unknown Urine Color Yellow Urine Clarity Clear Urine pH 6.5 (<5.0-8.0) Urine Specific [place] 1.010 (1.000-1.030) Urine Protein Negative mg/dL (NEG-TRACE) Urine Glucose (UA) Negative mg/dL (NEG) Urine Ketones (Stick) Negative mg/dL (NEG) Urine Blood Negative (NEG) Urine Nitrite Negative (NEG) Urine Bilirubin Negative (NEG) Urine Urobilinogen Dipstick 0.2 mg/dL (0.2 mg/dL) Urine Leukocyte Esterase Negative (NEG) Urine RBC 0 /HPF (0-2) Urine WBC 0 /HPF (0-4) Urine Bacteria 0 /HPF (0-FEW) Test 09/18/21 05:30 White Blood Count 3.4 x10^3/uL (4.0-11.0) L Red Blood Count 3.44 x10^6/uL (4.30-5.70) L Hemoglobin 12.5 g/dL (13.0-17.5) L Hematocrit 37.2 % (39.0-53.0) L Mean Corpuscular Volume 108 fL (79-100) H Mean Corpuscular Hemoglobin 36 pg (25-35) H Mean Corpuscular Hemoglobin Concent 34 g/dL (31-37) Red Cell Distribution Width 15.9 % (11.5-14.5) H Platelet Count 48 x10^3/uL (140-400) L Neutrophils (%) (Auto) 58 % (31-73) Lymphocytes (%) (Auto) 28 % (24-48) Monocytes (%) (Auto) 13 % (0-9) H Eosinophils (%) (Auto) 1 % (0-3) Basophils (%) (Auto) 1 % (0-3) Neutrophils # (Auto) 2.0 x10^3/uL (1.8-7.7) Lymphocytes # (Auto) 0.9 x10^3/uL (1.0-4.8) L Monocytes # (Auto) 0.4 x10^3/uL (0.0-1.1) Eosinophils # (Auto) 0.0 x10^3/uL (0.0-0.7) Basophils # (Auto) 0.0 x10^3/uL (0.0-0.2) Sodium Level 140 mmol/L (136-145) Potassium Level 3.2 mmol/L (3.5-5.1) L Chloride Level 104 mmol/L (98-107) Carbon Dioxide Level 26 mmol/L (21-32) Anion Gap 10 (6-14) Blood Urea Nitrogen 11 mg/dL (8-26) Creatinine 0.9 mg/dL (0.7-1.3) Estimated GFR (Cockcroft-Gault) 87.0 BUN/Creatinine Ratio 12 (6-20) Glucose Level 86 mg/dL (70-99) Calcium Level 7.6 mg/dL (8.5-10.1) L Total Bilirubin 2.2 mg/dL (0.2-1.0) H Aspartate Amino Transferase (AST) 141 U/L (15-37) H Alanine Aminotransferase (ALT) 45 U/L (16-63) Alkaline Phosphatase 145 U/L (46-116) H Total Protein 6.6 g/dL (6.4-8.2) Albumin 2.9 g/dL (3.4-5.0) L Albumin/Globulin Ratio 0.8 (1.0-1.7) L Triglycerides Level 104 mg/dL (0-150) Cholesterol Level 129 mg/dL (0-200) LDL Cholesterol, Calculated 81 mg/dL (0-100) VLDL Cholesterol, Calculated 21 mg/dL (0-40) Non-HDL Cholesterol Calculated 102 mg/dL (0-129) HDL Cholesterol 27 mg/dL (40-60) L Cholesterol/HDL Ratio 4.8 Laboratory Tests 09/17/21 14:25 09/18/21 05:30 Laboratory Tests 09/17/21 14:25 09/18/21 05:30 ECHOCARDIOGRAM ECHOCARDIOGRAM TTE 02/20/2018 [facility] Technically limited study. Cardiac chambers and valvular structures are not well visualized. Normal LV contractility. Estimated LVEF 65%. Moderate to severe concentric LV hypertrophy. The right ventricle is not visualized but probably has normal contractility. Moderate aortic root dilatation at the sinuses of Valsalva and the proximal ascending aorta. Mild transverse aortic dilatation. Pulmonary artery and pulmonic valve are not well visualized. The aortic valve is not visualized but cusp motion does not appear restricted. Mild mitral annular calcification without stenosis. Trace mitral and tricuspid regurgitation. Estimated PA pressure 28 mmHg. No prior study available for comparison. SUMMARY/OPINION:10/08/2018 [facility] Normal left dilatation with normal function cavity size with concentric hypertrophy. Normal ejection fraction estimated at 55%. Moderately dilated right ventricle with normal function Valvular structures not well visualized. No significant valvular Doppler minute is seen. No pericardial effusion. Estimated peak systolic PA pressure 31 mmHg. The ascending aorta is dilated at the sinuses of Valsalva, sinotubular junction and proximal segment. Limited echocardiogram <Conclusion> The left ventricular systolic function is normal and the ejection fraction is within normal range. Estimated ejection fraction 50-55%. There is normal LV segmental wall motion. Limited echo for EF and wall motion only. DATE: 01/20/21 [id number] STRESS TEST STRESS TEST FINDINGS: [facility] 02/20/2018 Pharmacological Stress Electrocardiogram: The patient's resting heart rate was 76 beats per minute and the resting blood pressure was 151/97 mmHg. The patient's peak stress heart rate was 81 beats per minute and the peak stress blood pressure was 171/109 mmHg. The resting ECG shows sinus rhythm. With Regadenoson administration, patient reported shortness of air symptoms. Following regadenoson administration, there are no new diagnostic ECG changes, sustained ectopy or arrhythmias. Conclusion: Non-ischemic pharmacologic stress ECG. ASSESSMENT/PLAN ASSESSMENT/PLAN 1. Chest pain, atypical. AMI ruled out. 2. Right flank/abdomen hematoma. 3. Ascites with alcohol related cirrhosis, splenomegaly and h/o paraesophageal varices 4. Alcohol abuse 5. Hx of coagulopathy with underlying liver disease; INR 1.2 6. Chronic diastolic CHF; NT Pro BNP 46. CXR without vascular congestion. Recent limited echo with preserved LV systolic function as noted above 7. Hypertension; labile 8. DM2/HLP 9. RM: CPAP noncompliant 10. Morbid obesity 11. Hypokalemia 12. Ascending aortic aneurysm; measuring up to 4.3 cm per CTA Recommendations Okay to hold ASA. Monitor hgb Resume home antiHTN therapy Resume oral Bumex Replace K. Mg as warranted Discussed/encouraged cessation from ETOH Could consider outpatient ischemic evaluation CRISTINO WOOD MD 09/18/21 1726: CARDIAC CONSULT ASSESSMENT/PLAN ASSESSMENT/PLAN Pt. seen and examined. Agree with above REAL ESTATE LISTING CONSULTANT note. Supportive care. Outpt ischemic evaluation. GEOFF RAHMAN APRN Sep 18, 2021 10:04 CRISTINO WOOD MD Sep 18, 2021 17:26
[2021-09-18] MEDS: METHYL SALICYLATE/MENTHOL TOPICAL CREAM 57GM TUBE. TP SCH ×2 (10:14→20:39)
[2021-09-18] MEDS: oxyCODONE/APAP 5/325 1 TAB TABLET PO PRN ×3 (10:17→20:35)
--- NOTE | 2021-09-18 11:39 | NUR ---
SW following. Discussed with RN, pt from home with , room air, cardiac diet. Surgery and Cardiology following. No surgical plans per Surgery. RN advised no SW needs at this time. SW will continue to follow.
--- NOTE | 2021-09-18 11:41 | PDOC ---
[employer] PROGRESS NOTE Date of Service DOS: DATE: 09/18/21 TIME: 11:40 Chief Complaint Chief Complaint Abdominal wall cellulitis/bruising Acute on chronic systolic and diastolic heart failure Alcoholism, he drinks 24 alcoholic beverages a day, CHF, GERD, hypertension, cellulitis, cirrhosis, cholecystectomy, left foot surgery, hernia repair. History of Present Illness History of Present Illness 09/18/2021 Patient seen and examined Discussed with RN Chart reviewed Discussed with pharmacy Vitals/I&O Vitals/I&O: Vital Signs Date Time Temp Pulse Resp B/P (MAP) Pulse Ox O2 Delivery O2 Flow Rate FiO2 09/18/21 08:30 Room Air 09/18/21 07:00 97.8 99 16 154/79 (104) 95 97.8 I & O 09/17/21 09/17/21 09/18/21 15:00 23:00 07:00 Output Total 700 ml Balance -700 ml Physical Exam General: Alert, Oriented X3, Cooperative, No acute distress Heart: Regular rate Lungs: Clear Abdomen: Normal bowel sounds, Soft, No tenderness, Other (Appears to be he hematoma contusion on the right flank no erythema mildly tender) Skin: No significant lesion Labs Labs: Laboratory Tests Test 09/17/21 14:25 09/17/21 17:00 09/17/21 20:32 09/17/21 23:35 White Blood Count 3.2 x10^3/uL (4.0-11.0) Red Blood Count 3.82 x10^6/uL (4.30-5.70) Hemoglobin 13.7 g/dL (13.0-17.5) Hematocrit 40.5 % (39.0-53.0) Mean Corpuscular Volume 106 fL (79-100) Mean Corpuscular Hemoglobin 36 pg (25-35) Mean Corpuscular Hemoglobin Concent 34 g/dL (31-37) Red Cell Distribution Width 15.4 % (11.5-14.5) Platelet Count 55 x10^3/uL (140-400) Neutrophils (%) (Auto) 62 % (31-73) Lymphocytes (%) (Auto) 21 % (24-48) Monocytes (%) (Auto) 15 % (0-9) Eosinophils (%) (Auto) 1 % (0-3) Basophils (%) (Auto) 1 % (0-3) Neutrophils # (Auto) 2.0 x10^3/uL (1.8-7.7) Lymphocytes # (Auto) 0.7 x10^3/uL (1.0-4.8) Monocytes # (Auto) 0.5 x10^3/uL (0.0-1.1) Eosinophils # (Auto) 0.0 x10^3/uL (0.0-0.7) Basophils # (Auto) 0.0 x10^3/uL (0.0-0.2) Prothrombin Time 15.4 SEC (11.7-14.0) Prothromb Time International Ratio 1.2 (0.8-1.1) Activated Partial Thromboplast Time 35 SEC (24-38) Sodium Level 137 mmol/L (136-145) Potassium Level 3.5 mmol/L (3.5-5.1) Chloride Level 101 mmol/L (98-107) Carbon Dioxide Level 24 mmol/L (21-32) Anion Gap 12 (6-14) Blood Urea Nitrogen 14 mg/dL (8-26) Creatinine 0.8 mg/dL (0.7-1.3) Estimated GFR (Cockcroft-Gault) 99.6 BUN/Creatinine Ratio 18 (6-20) Glucose Level 122 mg/dL (70-99) Lactic Acid Level 1.6 mmol/L (0.4-2.0) Calcium Level 7.7 mg/dL (8.5-10.1) Total Bilirubin 2.4 mg/dL (0.2-1.0) Direct Bilirubin 1.3 mg/dL (0.0-0.2) Gamma Glutamyl Transpeptidase 933 U/L (10-85) Aspartate Amino Transf (AST/SGOT) 155 U/L (15-37) Alanine Aminotransferase (ALT/SGPT) 47 U/L (16-63) Alkaline Phosphatase 151 U/L (46-116) Troponin I High Sensitivity 13 ng/L (4-75) 14 ng/L (4-75) 12 ng/L (4-75) TK-Qra-D-Type Natriuretic Peptide 46 pg/mL (0-124) Total Protein 7.0 g/dL (6.4-8.2) Albumin 3.0 g/dL (3.4-5.0) Albumin/Globulin Ratio 0.8 (1.0-1.7) Lipase 197 U/L (73-393) Ethyl Alcohol Level < 10 mg/dL (0-10) Urine Collection Type Unknown Urine Color Yellow Urine Clarity Clear Urine pH 6.5 (<5.0-8.0) Urine Specific [place] 1.010 (1.000-1.030) Urine Protein Negative mg/dL (NEG-TRACE) Urine Glucose (UA) Negative mg/dL (NEG) Urine Ketones (Stick) Negative mg/dL (NEG) Urine Blood Negative (NEG) Urine Nitrite Negative (NEG) Urine Bilirubin Negative (NEG) Urine Urobilinogen Dipstick 0.2 mg/dL (0.2 mg/dL) Urine Leukocyte Esterase Negative (NEG) Urine RBC 0 /HPF (0-2) Urine WBC 0 /HPF (0-4) Urine Bacteria 0 /HPF (0-FEW) Test 09/18/21 05:30 White Blood Count 3.4 x10^3/uL (4.0-11.0) Red Blood Count 3.44 x10^6/uL (4.30-5.70) Hemoglobin 12.5 g/dL (13.0-17.5) Hematocrit 37.2 % (39.0-53.0) Mean Corpuscular Volume 108 fL (79-100) Mean Corpuscular Hemoglobin 36 pg (25-35) Mean Corpuscular Hemoglobin Concent 34 g/dL (31-37) Red Cell Distribution Width 15.9 % (11.5-14.5) Platelet Count 48 x10^3/uL (140-400) Neutrophils (%) (Auto) 58 % (31-73) Lymphocytes (%) (Auto) 28 % (24-48) Monocytes (%) (Auto) 13 % (0-9) Eosinophils (%) (Auto) 1 % (0-3) Basophils (%) (Auto) 1 % (0-3) Neutrophils # (Auto) 2.0 x10^3/uL (1.8-7.7) Lymphocytes # (Auto) 0.9 x10^3/uL (1.0-4.8) Monocytes # (Auto) 0.4 x10^3/uL (0.0-1.1) Eosinophils # (Auto) 0.0 x10^3/uL (0.0-0.7) Basophils # (Auto) 0.0 x10^3/uL (0.0-0.2) Sodium Level 140 mmol/L (136-145) Potassium Level 3.2 mmol/L (3.5-5.1) Chloride Level 104 mmol/L (98-107) Carbon Dioxide Level 26 mmol/L (21-32) Anion Gap 10 (6-14) Blood Urea Nitrogen 11 mg/dL (8-26) Creatinine 0.9 mg/dL (0.7-1.3) Estimated GFR (Cockcroft-Gault) 87.0 BUN/Creatinine Ratio 12 (6-20) Glucose Level 86 mg/dL (70-99) Calcium Level 7.6 mg/dL (8.5-10.1) Total Bilirubin 2.2 mg/dL (0.2-1.0) Aspartate Amino Transf (AST/SGOT) 141 U/L (15-37) Alanine Aminotransferase (ALT/SGPT) 45 U/L (16-63) Alkaline Phosphatase 145 U/L (46-116) Total Protein 6.6 g/dL (6.4-8.2) Albumin 2.9 g/dL (3.4-5.0) Albumin/Globulin Ratio 0.8 (1.0-1.7) Triglycerides Level 104 mg/dL (0-150) Cholesterol Level 129 mg/dL (0-200) LDL Cholesterol, Calculated 81 mg/dL (0-100) VLDL Cholesterol, Calculated 21 mg/dL (0-40) Non-HDL Cholesterol Calculated 102 mg/dL (0-129) HDL Cholesterol 27 mg/dL (40-60) Cholesterol/HDL Ratio 4.8 Assessment and Plan Assessmemt and Plan Problems Medical Problems: (1) Abnormal bruising Status: Acute (2) Exertional dyspnea Status: Acute (3) Other chest pain Status: Acute Abdominal wall cellulitis/bruising Acute on chronic systolic and diastolic heart failure Alcoholism, he drinks 24 alcoholic beverages a day, CHF, GERD, hypertension, cellulitis, cirrhosis, cholecystectomy, left foot surgery, hernia repair. Plan Empiric IV antibiotics Appreciate subspecialist input Continue Lasix As needed Percocet As needed BenGay per patient request Home meds PT OT DVT prophylaxis Full code Hope to discharge tomorrow if stable Comment Review of Relevant I have reviewed the following items sang (where applicable) has been applied. Medications: Current Medications Medications (Trade) Dose Ordered Sig/Bonnie Route PRN Reason Start Time Stop Time Status Last Admin Dose Admin Iohexol (Omnipaque 350 Mg/ml) 100 ml 1X ONCE IV 09/17/21 15:30 09/17/21 15:37 DC 09/17/21 15:30 Furosemide (Lasix) 40 mg 1X ONCE IVP 09/17/21 18:00 09/17/21 18:05 DC 09/17/21 18:29 Aspirin (Yusuf Aspirin) 325 mg 1X ONCE PO 09/17/21 18:30 09/17/21 18:36 DC 09/17/21 20:42 Acetaminophen (Tylenol) 650 mg PRN Q4HRS PRN PO FEVER > 100.3'F 09/17/21 18:30 09/18/21 18:29 09/18/21 02:07 Ceftriaxone Sodium (Rocephin) 1 gm Q24H IVP 09/17/21 20:00 09/17/21 20:39 Menthol/Methyl Salicylate (Bengay Greaseless Cream) 1 celio BID TP 09/18/21 10:00 09/18/21 10:14 Oxycodone/ Acetaminophen (Percocet 5/325) 1 tab PRN Q4HRS PRN PO MODERATE PAIN, SEVERE PAIN 09/18/21 10:00 09/18/21 10:17 Justifications for Admission Other Justification Alcohol withdrawal MICHELE ESTEBAN III DO Sep 18, 2021 11:41
[2021-09-18] MEDS ORDERED: POTASSIUM CHLORIDE 20 MEQ TABLET.ER. PO ONE (15:00)
[2021-09-18] MEDS: THIAMINE 100 MG TABLET. PO SCH (15:20)
[2021-09-18] MEDS: SPIRONOLACTONE 25 MG TABLET PO SCH (15:20)
[2021-09-18] MEDS: MULTIVITAMIN with MINERAL TABLET. PO SCH (15:20)
[2021-09-18] MEDS: BUMETANIDE 1 MG TABLET. PO SCH (15:20)
[2021-09-18] MEDS: LOSARTAN POTASSIUM 50 MG TABLET. PO SCH (15:21)
[2021-09-18] MEDS: CARVEDILOL 3.125 MG TABLET. PO SCH (16:57)
[2021-09-18] MEDS: cefTRIAXone IV Push 1 GM VIAL. IVP SCH (20:39)
[2021-09-19 03:04] VITALS: BP 134/84
[2021-09-19] MEDS: oxyCODONE/APAP 5/325 1 TAB TABLET PO PRN ×2 (03:10→08:34)
[2021-09-19 07:00] VITALS: BP 158/86
[2021-09-19] MEDS ORDERED: PANTOPRAZOLE 40 MG TABLET.DR. PO SCH (07:30)
[2021-09-19] MEDS: THIAMINE 100 MG TABLET. PO SCH (08:24)
[2021-09-19] MEDS: CARVEDILOL 3.125 MG TABLET. PO SCH (08:26)
[2021-09-19] MEDS: LOSARTAN POTASSIUM 50 MG TABLET. PO SCH (08:27)
[2021-09-19] MEDS: SPIRONOLACTONE 25 MG TABLET PO SCH (08:27)
[2021-09-19] MEDS: MULTIVITAMIN with MINERAL TABLET. PO SCH (08:28)
[2021-09-19] MEDS: BUMETANIDE 1 MG TABLET. PO SCH (08:31)
[2021-09-19] MEDS: METHYL SALICYLATE/MENTHOL TOPICAL CREAM 57GM TUBE. TP SCH (08:32)
[2021-09-19] MEDS ORDERED: POTASSIUM CHLORIDE 20 MEQ TABLET.ER. PO SCH (09:00)
--- NOTE | 2021-09-19 09:29 | PDOC ---
GEOFF RAHMAN APRN 09/19/21 0929: CARDIO Progress Notes Date and Time Date of Service 09/19/21 Time of Evaluation 1150 Subjective Subjective: No Chest Pain, No shortness of breath, No Palpitations, No Dizziness Vitals Vitals Vital Signs Date Time Temp Pulse Resp B/P (MAP) Pulse Ox O2 Delivery O2 Flow Rate FiO2 09/19/21 08:34 Room Air 09/19/21 08:27 77 158/86 09/19/21 07:00 98.3 20 95 98.3 Weight Weight [ ] Input and Output Intake and Output Intake and Output 09/19/21 07:00 Intake Total 1340 ml Output Total 1450 ml Balance -110 ml Intake Oral 1340 ml Output Urine Total 1450 ml # Bowel Movements 1 Laboratory Labs Laboratory Tests Test 09/18/21 14:10 Magnesium Level 1.6 mg/dL (1.8-2.4) Physical Exam HEENT: Neck Supple W Full Motion Chest: Symmetric LUNGS: Clear to Auscultation, Other Heart: RRR Abdomen: Other (ascites. erythema of right flank that extends around to right lower abdomen) Extremities: Other (trace bilateral LE edema ) Neurology: alert, oriented, follow commands Assessment Assessment 1. Chest pain, atypical. AMI ruled out. 2. Right flank/abdomen discoloration; ? hematoma 3. Ascites with alcohol related cirrhosis, splenomegaly and h/o paraesophageal varices 4. Alcohol abuse 5. Hx of coagulopathy with underlying liver disease; INR 1.2 6. Chronic diastolic CHF; NT Pro BNP 46. CXR without vascular congestion. Recent limited echo with preserved LV systolic function 7. Hypertension; improved 8. DM2/HLP 9. RM: CPAP noncompliant 10. Morbid obesity 11. Hypokalemia, hypomagnesemia 12. Ascending aortic aneurysm; measuring up to 4.3 cm per CTA Recommendations Oral Bumex Replace Mg Reinforced importance of ETOH cessation Outpatient ischemic evaluation Supportive care Follow up in our office as scheduled Justicifation of Admission Dx: Justifications for Admission: Justification of Admission Dx: Yes CRISTINO WOOD MD 09/20/21 1205: CARDIO Progress Notes Plan Plan Late entry for 09/19/2021 Patient seen and examined. Agree with above nurse practitioner note GEOFF RAHMAN APRN Sep 19, 2021 09:29 CRISTINO WOOD MD Sep 20, 2021 12:05
[2021-09-19] MEDS ORDERED: MAGNESIUM SULFATE 2GM 50 ML IV ONE (10:00)
[2021-09-19 11:00] VITALS: BP 99/47
--- NOTE | 2021-09-19 11:14 | PDOC ---
[employer] PROGRESS NOTE Date of Service DOS: DATE: 09/19/21 TIME: 11:13 Chief Complaint Chief Complaint Abdominal wall cellulitis/bruising Acute on chronic systolic and diastolic heart failure Alcoholism, he drinks 24 alcoholic beverages a day, CHF, GERD, hypertension, cellulitis, cirrhosis, cholecystectomy, left foot surgery, hernia repair. History of Present Illness History of Present Illness 09/19/2021 Patient seen and examined Discussed with RN Chart reviewed Discussed with case management He seems to be has baseline we will We will go ahead and discharge 09/18/2021 Patient seen and examined Discussed with RN Chart reviewed Discussed with pharmacy Vitals/I&O Vitals/I&O: Vital Signs Date Time Temp Pulse Resp B/P (MAP) Pulse Ox O2 Delivery O2 Flow Rate FiO2 09/19/21 08:34 Room Air 09/19/21 08:27 77 158/86 09/19/21 07:00 98.3 20 95 98.3 I & O 09/18/21 09/18/21 09/19/21 15:00 23:00 07:00 Intake Total 740 ml 600 ml Output Total 250 ml 1000 ml 200 ml Balance -250 ml -260 ml 400 ml Physical Exam General: Alert, Oriented X3, Cooperative, No acute distress Heart: Regular rate Lungs: Clear Abdomen: Other (obese. right flank, abdomen ecchymosis. ascites ) Extremities: Other (1+ bilateral LE edema ) Skin: No significant lesion Labs Labs: Laboratory Tests Test 09/18/21 14:10 Magnesium Level 1.6 mg/dL (1.8-2.4) Assessment and Plan Assessmemt and Plan Problems Medical Problems: (1) Abnormal bruising Status: Acute (2) Exertional dyspnea Status: Acute (3) Other chest pain Status: Acute Abdominal wall cellulitis/bruising Acute on chronic systolic and diastolic heart failure Alcoholism, he drinks 24 alcoholic beverages a day, CHF, GERD, hypertension, cellulitis, cirrhosis, cholecystectomy, left foot surgery, hernia repair. Plan Probable discharge this afternoon on p.o. antibiotics For now continue the following; Appreciate subspecialist input Continue as needed pain meds and I will send a prescription to his pharmacy Sent a prescription for Augmentin to his pharmacy As needed BenGay per patient request Home meds PT OT DVT prophylaxis Full code Discharge today Comment Review of Relevant I have reviewed the following items sang (where applicable) has been applied. Medications: Current Medications Medications (Trade) Dose Ordered Sig/Bonnie Route PRN Reason Start Time Stop Time Status Last Admin Dose Admin Bumetanide (Bumex) 1 mg DAILY PO 09/18/21 15:00 09/19/21 08:31 Carvedilol (Coreg) 3.125 mg BIDWMEALS PO 09/18/21 17:00 09/19/21 08:26 Hydralazine HCl (Apresoline) 50 mg TID PO 09/18/21 15:00 09/19/21 08:25 Potassium Chloride (Klor-Con) 40 meq DAILY PO 09/19/21 09:00 09/19/21 08:26 Spironolactone (Aldactone) 25 mg DAILY PO 09/18/21 15:00 09/19/21 08:27 Losartan Potassium (Cozaar) 100 mg DAILY PO 09/18/21 15:00 09/19/21 08:27 Multivitamins (Thera M Plus) 1 tab DAILY PO 09/18/21 15:00 09/19/21 08:28 Pantoprazole Sodium (Protonix) 40 mg DAILYAC PO 09/19/21 07:30 09/19/21 08:28 Thiamine Mononitrate (Vitamin B-1) 100 mg DAILY PO 09/18/21 15:00 09/19/21 08:24 Potassium Chloride (Klor-Con) 20 meq 1X ONCE PO 09/18/21 15:00 09/18/21 15:01 DC 09/18/21 15:21 Magnesium Sulfate 50 ml @ 25 mls/hr 1X ONCE IV 09/19/21 10:00 09/19/21 11:59 09/19/21 10:52 Justifications for Admission Other Justification Alcohol withdrawal IMCHELE ESTEBAN III DO Sep 19, 2021 11:14
[2021-09-19] MEDS ORDERED: OXYC1TAB15 PO (11:17)
[2021-09-19] MEDS ORDERED: AMOX1TAB10 PO (11:18)
--- NOTE | 2021-09-19 11:34 | NUR ---
SW following. Discussed with RN, discharge order for home with self care. RN advised no SW needs.
--- NOTE | 2021-09-19 11:43 | DS ---
DATE OF DISCHARGE: 09/19/2021 ADMITTING DIAGNOSES: Chest pain, abdominal wall cellulitis. DISCHARGE DIAGNOSES: 1. Atypical chest pain, resolving abdominal wall cellulitis. 2. Abdominal wall bruising. 3. Polypharmacy. 4. Narcotic dependence. 5. Gout. 6. Hypertension. 7. History of congestive heart failure. 8. Depression. 9. Anxiety. 10. Obesity. 11. Gastroesophageal reflux disease. 12. Neuropathy. HOSPITAL COURSE: The patient is a pleasant middle-aged male who presented with some abdominal pain and chest pain. He had cellulitis. We admitted the patient, gave him IV antibiotics and consult Cardiology. They feel like the chest pain is atypical. Today, I saw and examined him. He was at his baseline. We plan to discharge on p.o. antibiotics and will resume his other home medicines. DISPOSITION: Home. ACTIVITY: As tolerated. DIET: Low sodium. DISCHARGE MEDICATIONS: Please see the MRAD. Percocet 5 q.4 hours p.r.n., amoxicillin 500 b.i.d., albuterol, allopurinol 300 a day, aspirin 81 a day, Bumex 1 mg daily, carvedilol 3.125 b.i.d., doxepin 1 capsule at bedtime, Lexapro 10 a day, iron 240 a day, hydralazine 50 t.i.d., losartan 100 a day, methocarbamol 750 q.8 hours p.r.n., Bengay, vitamins, omeprazole 20 a day, artificial tears, potassium chloride 40 a day, senna, Aldactone 25 a day, and thiamine 1 tablet daily. TOTAL TIME: [address]: Sudhir TID: [id number]
[2021-09-19 14:28] VITALS: BP 132/70
[2021-09-19 14:38] VITALS: BP 132/70
--- NOTE | 2021-09-19 17:00 | NUR ---
Discharge instructions given. Answered questions and concerns. Verbalized understanding. Pt discharged home. Escorted out by w/c. at the front door.
== END 2021-09-19 17:00 | disposition home or self-care (01) | DRG 602 ==
LOC: ER 14:04 → 5 NORTH 18:00
PROVIDERS: ADMIT Internal Medicine; ATTEND Internal Medicine
DX: L03.311 Cellulitis of abdominal wall (principal); I50.43 Acute on chronic combined systolic (congestive) and diastolic (congestive) heart failure; F11.20 Opioid dependence, uncomplicated; K76.6 Portal hypertension; E11.9 Type 2 diabetes mellitus without complications; E66.01 Morbid (severe) obesity due to excess calories; E78.5 Hyperlipidemia, unspecified; E83.42 Hypomagnesemia; E87.6 Hypokalemia; F10.20 Alcohol dependence, uncomplicated; F32.A Depression, unspecified; F41.9 Anxiety disorder, unspecified; G47.33 Obstructive sleep apnea (adult) (pediatric); G62.9 Polyneuropathy, unspecified; I11.0 Hypertensive heart disease with heart failure; I71.2 Thoracic aortic aneurysm, without rupture; J45.909 Unspecified asthma, uncomplicated; K21.9 Gastro-esophageal reflux disease without esophagitis; K70.31 Alcoholic cirrhosis of liver with ascites; M10.9 Gout, unspecified; S30.1XXA Contusion of abdominal wall, initial encounter; Z83.3 Family history of diabetes mellitus; Z91.19 Patient's noncompliance with other medical treatment and regimen; M19.90 Unspecified osteoarthritis, unspecified site; R07.89 Other chest pain; Z90.49 Acquired absence of other specified parts of digestive tract; E11.42 Type 2 diabetes mellitus with diabetic polyneuropathy; Z79.4 Long term (current) use of insulin; W18.39XA Other fall on same level, initial encounter; Y93.89 Activity, other specified; Y92.89 Other specified places as the place of occurrence of the external cause; Y99.8 Other external cause status
CPT/HCPCS: 36415; 71045; 71275; 74174; 80053; 80061; 81001; 82248; 82977; 83605; 83690; 83735; 83880; 84484; 85025; 85610; 85730; 86850; 86900; 86901; 93005; 93970; 96374; G0480; J0696; J1940; J3475; Q9967; 99285-25; G0378

== ENCOUNTER 2021-11-15 13:45 | Inpatient (IN) | payer MEDICARE ==
[~2021-11-15] VITALS: Ht 185.4 cm; Wt 148.6 kg
[~2021-11-15 13:45] MED LIST changes: +AMOX1TAB10 PO
[2021-11-15] MEDS ORDERED: ONDANSETRON PF 4 MG/2 ML VIAL. IVP ONE (14:00)
[2021-11-15] MEDS ORDERED: IV NORMAL SALINE 1000ML BAG 1,000 ML IV ONE (14:00)
--- NOTE | 2021-11-15 14:26 | PHYS DOC ---
Past Medical History Past Medical History: Alcoholism, CHF, GERD, Hypertension Additional Past Medical Histor: RECENT CELLULITIS, elevated LFTs, NEUROPATHY Past Surgical History: Other Additional Past Surgical Histo: HERNIA Smoking Status: Never Smoker Alcohol Use: Heavy Drug Use: None Adult General Chief Complaint Chief Complaint: CHEST PAIN HPI HPI Patient is a 56 year old male presenting to the emergency department for evaluation of multiple complaints including chest pain dizziness near syncope and slurred speech. Patient is an alcoholic and has been drinking a large amount of alcohol and the thinks that his speech may be at his baseline when he is intoxicated. The chest pain is a tightness in the center of his chest that started approximately 2 hours prior to arrival while he was walking in the hallways. Reportedly he became very lightheaded while he was walking and felt as if he was going to pass out but he did not. Patient says that he has a history of congestive heart failure but no ischemia with no stents and he does not think that he has had a heart catheterization before in the past. Patient denies any unilateral weakness numbness or tingling. He is in no acute distress but is hypertensive and tachycardic. Patient says that he is shaky and thinks that he is withdrawing from alcohol. Review of Systems Review of Systems Constitutional: Denies fever or chills [] Eyes: Denies change in visual acuity, redness, or eye pain [] HENT: Denies nasal congestion or sore throat [] Respiratory: Denies cough or shortness of breath [] Cardiovascular: Positive chest pain GI: Denies abdominal pain, nausea, vomiting, bloody stools or diarrhea [] : Denies dysuria or hematuria [] Musculoskeletal: Denies back pain or joint pain [] Integument: Denies rash or skin lesions [] Neurologic: Denies headache, focal weakness or sensory changes. Positive dizziness All other systems were reviewed and found to be within normal limits, except as documented in this note. Current Medications Current Medications Current Medications Medications (Trade) Dose Ordered Sig/Bonnie Start Time Stop Time Status Last Admin Dose Admin Folic Acid (Folic Acid) 1 mg DAILY 11/20/21 09:00 UNV Lorazepam (Ativan Inj) 4 mg PRN Q1HR PRN 11/15/21 16:00 UNV Multivitamins (Thera M Plus) 1 tab DAILY 11/20/21 09:00 UNV Ondansetron HCl (Zofran) 4 mg PRN Q8HRS PRN 11/15/21 16:00 11/16/21 15:59 UNV Sodium Chloride 1,000 ml @ 1,000 mls/hr 1X ONCE 11/15/21 14:00 11/15/21 14:59 DC 11/15/21 14:32 1,000 MLS/HR Thiamine Mononitrate (Vitamin B-1) 100 mg DAILY 11/20/21 09:00 UNV Allergies Allergies Allergies Coded Allergies Type Severity Reaction Last Updated Verified No Known Drug Allergies 11/15/21 No Physical Exam Physical Exam Constitutional: Well developed, well nourished, no acute distress, non-toxic appearance. [] HENT: Normocephalic, atraumatic, bilateral external ears normal, oropharynx moist, no oral exudates, nose normal. [] Eyes: PERRLA, EOMI, conjunctiva normal, no discharge. [] Neck: Normal range of motion, no tenderness, supple, no stridor. [] Cardiovascular: Tachycardic heart rate regular rhythm, no murmur [] Lungs & Thorax: Bilateral breath sounds clear to auscultation [] Abdomen: Bowel sounds normal, soft, no tenderness, no masses, no pulsatile masses. [] Skin: Warm, dry, no erythema, no rash. [] Back: No tenderness, no CVA tenderness. [] Extremities: No tenderness, no cyanosis, no clubbing, ROM intact, no edema. [] Neurologic: Alert and oriented X 3, normal motor function, normal sensory function, no focal deficits noted. Mild hand tremors noted but no tongue tremors. Current Patient Data Vital Signs Vital Signs Date Time Temp Pulse Resp B/P (MAP) Pulse Ox O2 Delivery O2 Flow Rate FiO2 11/15/21 14:28 104 20 139/60 (86) 97 11/15/21 13:48 97.8 Room Air 97.8 Lab Values Laboratory Tests Test 11/15/21 14:10 11/15/21 14:15 Urine Collection Type Unknown Urine Color Yellow Urine Clarity Clear Urine pH 7.5 Urine Specific [place] 1.015 Urine Protein Negative mg/dL (NEG-TRACE) Urine Glucose (UA) Negative mg/dL (NEG) Urine Ketones (Stick) Negative mg/dL (NEG) Urine Blood Negative (NEG) Urine Nitrite Negative (NEG) Urine Bilirubin Negative (NEG) Urine Urobilinogen Dipstick 0.2 mg/dL (0.2 mg/dL) Urine Leukocyte Esterase Negative (NEG) Urine RBC 0 /HPF (0-2) Urine WBC 0 /HPF (0-4) Urine Bacteria 0 /HPF (0-FEW) Urine Opiates Screen Neg (NEG) Urine Methadone Screen Neg (NEG) Urine Barbiturates Neg (NEG) Urine Phencyclidine Screen Neg (NEG) Urine Amphetamine/Methamphetamine Neg (NEG) Urine Benzodiazepines Screen Neg (NEG) Urine Cocaine Screen Neg (NEG) Urine Cannabinoids Screen Neg (NEG) Urine Ethyl Alcohol Pos (NEG) White Blood Count 5.9 x10^3/uL (4.0-11.0) Red Blood Count 4.49 x10^6/uL (4.30-5.70) Hemoglobin 15.5 g/dL (13.0-17.5) Hematocrit 44.5 % (39.0-53.0) Mean Corpuscular Volume 99 fL (79-100) Mean Corpuscular Hemoglobin 34 pg (25-35) Mean Corpuscular Hemoglobin Concent 35 g/dL (31-37) Red Cell Distribution Width 14.2 % (11.5-14.5) Platelet Count 121 x10^3/uL (140-400) L Neutrophils (%) (Auto) 55 % (31-73) Lymphocytes (%) (Auto) 34 % (24-48) Monocytes (%) (Auto) 10 % (0-9) H Eosinophils (%) (Auto) 1 % (0-3) Basophils (%) (Auto) 1 % (0-3) Neutrophils # (Auto) 3.2 x10^3/uL (1.8-7.7) Lymphocytes # (Auto) 2.0 x10^3/uL (1.0-4.8) Monocytes # (Auto) 0.6 x10^3/uL (0.0-1.1) Eosinophils # (Auto) 0.0 x10^3/uL (0.0-0.7) Basophils # (Auto) 0.0 x10^3/uL (0.0-0.2) Prothrombin Time 14.7 SEC (11.7-14.0) H Prothrombin Time INR 1.2 (0.8-1.1) H Activated Partial Thromboplast Time 34 SEC (24-38) Sodium Level 141 mmol/L (136-145) Potassium Level 4.0 mmol/L (3.5-5.1) Chloride Level 102 mmol/L (98-107) Carbon Dioxide Level 26 mmol/L (21-32) Anion Gap 13 (6-14) Blood Urea Nitrogen 8 mg/dL (8-26) Creatinine 0.7 mg/dL (0.7-1.3) Estimated GFR (Cockcroft-Gault) 116.2 BUN/Creatinine Ratio 11 (6-20) Glucose Level 133 mg/dL (70-99) H Lactic Acid Level 3.3 mmol/L (0.4-2.0) H Calcium Level 9.1 mg/dL (8.5-10.1) Total Bilirubin 1.3 mg/dL (0.2-1.0) H Aspartate Amino Transferase (AST) 106 U/L (15-37) H Alanine Aminotransferase (ALT) 47 U/L (16-63) Alkaline Phosphatase 185 U/L (46-116) H Troponin I High Sensitivity 22 ng/L (4-75) JP-Vkh-S-Type Natriuretic Peptide 32 pg/mL (0-124) Total Protein 8.3 g/dL (6.4-8.2) H Albumin 3.7 g/dL (3.4-5.0) Albumin/Globulin Ratio 0.8 (1.0-1.7) L Lipase 279 U/L (73-393) Thyroid Stimulating Hormone (TSH) 1.218 uIU/mL (0.358-3.74) Ethyl Alcohol Level 249 mg/dL (0-10) H Laboratory Tests 11/15/21 14:15 Laboratory Tests 11/15/21 14:15 EKG EKG Sinus tachycardia in 105 bpm with normal axis no ST elevation or depression and normal T waves. Radiology/Procedures Radiology/Procedures [] Course & Med Decision Making Course & Med Decision Making I will check labs and imaging treat symptoms and reassess. Work-up does not reveal acute process however patient is still having tremors and feeling poorly. Patient initially said that he would like to go home with oral Librium for detox however said that he has been hardly able to walk and is functioning very poorly at home. Patient eventually consented to inpatient treatment for his alcohol withdrawal and failure to thrive at home. Patient will be admitted to the telemetry floor in stable condition. Dragon Disclaimer Dragon Disclaimer This electronic medical record was generated, in whole or in part, using a voice recognition dictation system. Departure Departure Impression: Primary Impression: Alcohol withdrawal Additional Impressions: Rib contusion Transaminitis Lactic acid acidosis Frequent falls Disposition: ADMITTED INPATIENT Admitting Physician: JG Cruz) Condition: IMPROVED Referrals: UNKNOWN PCP NAME (PCP) Problem Qualifiers Primary Impression: Alcohol withdrawal Complication of substance-induced condition: with unspecified complication Qualified Codes: F10.239 - Alcohol dependence with withdrawal, unspecified Additional Impressions: Rib contusion Encounter type: initial encounter Laterality: unspecified laterality Qualified Codes: S20.219A - Contusion of unspecified front wall of thorax, initial encounter MILO LI DO November 15, 2021 14:26
[2021-11-15 14:30] LABS: BASO % 1 % (0-3); EOS % 1 % (0-3); HEMATOCRIT 44.5 % (39.0-53.0); HEMOGLOBIN 15.5 g/dL (13.0-17.5); LYMPH % 34 % (24-48); MEAN CORPUSCULAR HEMOGLOBIN 34 pg (25-35); MEAN CORPUSCULAR HGB CONC 35 g/dL (31-37); MEAN CORPUSCULAR VOLUME 99 fL (79-100); MONO # 0.6 x10^3/uL (0.0-1.1); MONO % 10 % (0-9); NEUT # 3.2 x10^3/uL (1.8-7.7); NEUT % 55 % (31-73); PLATELET COUNT 121 x10^3/uL (140-400); RED BLOOD COUNT 4.49 x10^6/uL (4.30-5.70); RED CELL DISTRIBUTION WIDTH 14.2 % (11.5-14.5); WHITE BLOOD COUNT 5.9 x10^3/uL (4.0-11.0)
[2021-11-15 14:36] LABS: BARBITURATES NEG (NEG); BENZODIAZEPINES NEG (NEG); CANNABINOIDS NEG (NEG); COCAINE NEG (NEG); METHADONE NEG (NEG); OPIATES NEG (NEG); PHENCYCLIDINE NEG (NEG)
[2021-11-15 14:41] LABS: BACTERIA,URINE 0 /HPF (0-FEW); BILIRUBIN,URINE NEGATIVE (NEG); CLARITY,URINE CLEAR; COLOR,URINE YELLOW; NITRITE,URINE NEGATIVE (NEG); PH,URINE 7.5; PROTEIN,URINE NEGATIVE (NEG-TRACE); RBC,URINE 0 /HPF (0-2); UROBILINOGEN,URINE 0.2 mg/dL (0.2 mg/dL); WBC,URINE 0 /HPF (0-4)
[2021-11-15 14:45] LABS: PROTHROMBIN TIME PATIENT 14.7 SEC (11.7-14.0)
[2021-11-15 14:47] LABS: AMPHETAMINE/METHAMPHETAMINE NEG (NEG)
[2021-11-15 14:54] LABS: CALCIUM 9.1 mg/dL (8.5-10.1); CREATININE 0.7 mg/dL (0.7-1.3); GFR 116.2
[2021-11-15 15:01] LABS: ALBUMIN 3.7 g/dL (3.4-5.0); ALBUMIN/GLOBULIN RATIO 0.8 (1.0-1.7); TOTAL BILIRUBIN 1.3 mg/dL (0.2-1.0); TOTAL PROTEIN 8.3 g/dL (6.4-8.2)
--- NOTE | 2021-11-15 15:02 | RAD ---
CT HEAD AND C-SPINE WO dated 11/15/2021 2:17 PM. Comparison: None. Clinical Indication: Reason: near syncope, pain, Wthdrwl seizures, MULT FALLS, difficulty holding sti ll / Spl. Instructions: / History: HEAD AND NECK PAIN AFTER FALL Technical factors: Contiguous 5 mm axial images of the head were obtained from the skullbase to the v ertex. No contrast was administered. In addition, 3 mm axial images of the cervical spine were acquir ed with thin cut coronal and sagittal reconstructions. One or more of the following individualized dose reduction techniques were utilized for this examinat ion: 1. Automated exposure control 2. Adjustment of the mA and/or kV according to patient size 3. Use of iterative reconstruction technique Findings head: Ventricles and sulci are within normal limits for age. No evidence of ventricular shift or mass effec t. Brain parenchyma is of normal attenuation. There is no evidence of hemorrhage or extra-axial colle ction. Mild mucosal thickening of the right frontal sinus and left ethmoid air cells and left maxillary sinu s. Mastoid air cells are clear. No apparent calvarial abnormality. IMPRESSION HEAD: 1. No evidence of acute intracranial hemorrhage or mass. 2. Mild sinus disease. Findings cervical spine: Images were acquired from the skull base to T2. Slight retrolisthesis of C4 on C5. Slight anterolisth esis of C6 on C7. Vertebral body heights are maintained. Posterior elements are intact. No evidence o f fracture. Mild endplate hypertrophic changes throughout. There is severe disc space narrowing at C4-C5. Moderat e multilevel facet arthropathy. There is mild narrowing of the central canal at the C4-C5 level. Ther e is also multilevel mild to moderate foraminal narrowing throughout. Visualized soft tissue structures are unremarkable. Limited images of lung apices are clear. Mild emp hysema. IMPRESSION CERVICAL SPINE: 1. No evidence of fracture or malalignment. 2. Mild to moderate multilevel cervical spondylosis. Electronically signed by: Akin Padron MD (11/15/2021 2:59 PM) [facility]
--- NOTE | 2021-11-15 15:10 | RAD ---
Single view chest dated 11/15/2021 3:05 PM: COMPARISON: 09/17/2021 Clinical Indication: Chest pain. Findings: Single upright portable exam of the chest was performed. Heart and mediastinal contours are stable. T here is some prominent linear markings at the bilateral lung bases. No consolidation or pleural effus ion. No pneumothorax. IMPRESSION: 1. No evidence of focal pneumonia. 2. There are some prominent interstitial markings at both lung bases that appears somewhat increased from prior study. This is nonspecific and could be related to atelectasis or noncardiogenic edema or atypical infection. Electronically signed by: Akin Padron MD (11/15/2021 3:07 PM) [facility]
[2021-11-15 15:58] VITALS: BP 125/73
[2021-11-15] MEDS ORDERED: ONDANSETRON PF 4 MG/2 ML VIAL. IVP PRN ×2 (16:00→18:00)
[2021-11-15] MEDS ORDERED: MULTIVITAMIN with MINERAL TABLET. PO SCH (17:00)
[2021-11-15] MEDS ORDERED: FOLIC ACID 1 MG TABLET. PO SCH (17:00)
[2021-11-15] MEDS ORDERED: THIAMINE 100 MG TABLET. PO SCH (17:00)
--- NOTE | 2021-11-15 17:53 | PDOC1 ---
History and Physical Date of Service: DOS: DATE: 11/15/21 TIME: 17:53 Allergies: Allergies: Coded Allergies: No Known Drug Allergies (Unverified , 11/15/21) Current Medications: Current Medications Current Medications Sodium Chloride 1,000 ml @ 1,000 mls/hr 1X ONCE IV Last administered on 11/15/21at 14:32; Start 11/15/21 at 14:00; Stop 11/15/21 at 14:59; Status DC Ondansetron HCl (Zofran) 4 mg 1X ONCE IVP Last administered on 11/15/21at 14:32; Start 11/15/21 at 14:00; Stop 11/15/21 at 14:05; Status DC Lorazepam (Ativan Inj) 1 mg 1X ONCE IVP Last administered on 11/15/21at 14:33; Start 11/15/21 at 14:00; Stop 11/15/21 at 14:05; Status DC Ondansetron HCl (Zofran) 4 mg PRN Q8HRS PRN IVP NAUSEA/VOMITING; Start 11/15/21 at 16:00; Stop 11/16/21 at 15:59 Multivitamins (Thera M Plus) 1 tab DAILY PO Last administered on 11/15/21at 17:03; Start 11/15/21 at 17:00; Stop 11/15/21 at 17:51; Status DC Folic Acid (Folic Acid) 1 mg DAILY PO Last administered on 11/15/21at 17:03; Start 11/15/21 at 17:00; Stop 11/15/21 at 17:51; Status DC Thiamine Mononitrate (Vitamin B-1) 100 mg DAILY PO Last administered on 11/15/21at 17:03; Start 11/15/21 at 17:00; Stop 11/15/21 at 17:52; Status DC Lorazepam (Ativan Inj) 2 mg PRN Q1HR PRN IV For CIWA 8-14; Start 11/15/21 at 16:00 Lorazepam (Ativan Inj) 4 mg PRN Q1HR PRN IV For CIWA 15 or greater; Start 11/15/21 at 16:00 Multivitamins 10 ml/Thiamine HCl 100 mg/Folic Acid 1 mg/Sodium Chloride 1,011.2 ml @ 100 mls/ hr DAILY IV ; Start 11/16/21 at 09:00; Stop 11/20/21 at 19:07; Status UNV Thiamine Mononitrate (Vitamin B-1) 100 mg DAILY PO ; Start 11/20/21 at 09:00; Stop 11/15/21 at 17:52; Status DC Sodium Chloride 1,000 ml @ 100 mls/hr Q10H IV ; Start 11/15/21 at 18:00; Stop 11/16/21 at 03:59; Status UNV Ondansetron HCl (Zofran) 4 mg PRN Q6HRS PRN IVP NAUSEA/VOMITING; Start 11/15/21 at 18:00; Status UNV Calcium Carbonate/ Glycine (Tums) 500 mg PRN Q3HRS PRN PO UPSET STOMACH; Start 11/15/21 at 18:00; Status UNV Info (Non-Icu Electrolyte Protocol) 1 ea PRN DAILY PRN MC SEE COMMENTS; Start 11/15/21 at 18:00; Status UNV Oxycodone HCl (Roxicodone) 5 mg PRN Q4HRS PRN PO MILD PAIN, 1ST CHOICE; Start 11/15/21 at 18:00; Status UNV Oxycodone HCl (Roxicodone) 10 mg PRN Q4HRS PRN PO MODERATE PAIN, SEVERE PAIN; Start 11/15/21 at 18:00; Status UNV Senna/Docusate Sodium (Senna Plus) 1 tab BID PO ; Start 11/15/21 at 21:00; Status UNV Heparin Sodium (Porcine) (Heparin Sodium) 5,000 unit Q8HRS SQ ; Start 11/15/21 at 22:00; Status UNV Thiamine Mononitrate (Vitamin B-1) 100 mg DAILY PO ; Start 11/21/21 at 09:00 Active Scripts Active Amox Tr-K Clv 500-125 Mg Tab (Amoxicillin/Potassium Clav) 1 Each Tablet 1 Tab PO BID Percocet 5-325 Mg Tablet (Oxycodone/Acetaminophen) 1 Each Tablet 1 Tab PO PRN Q4HRS PRN 10 Days Vitamin B-1 (Thiamine Hcl) 100 Mg Tablet 1 Tab PO DAILY 30 Days Stool Softener-Stimulant Lax (Sennosides/Docusate Sodium) 1 Each Tablet 1 Tab PO BID 30 Days Methocarbamol 750 Mg Tablet 750 Mg PO PRN Q8HRS PRN 90 Days Reported Lexapro (Escitalopram Oxalate) 10 Mg Tablet 10 Mg PO DAILY Doxepin Hcl 10 Mg Capsule 1 Cap PO QHS Artificial Tears Drops (Peg 400/Hypromellose/Glycerin) 15 Ml Drops 1 Drop EACHEYE PRN Q6HRS PRN 30 Days Multivitamin 1 Each Tablet 1 Each PO DAILY Aspirin 81 Mg Tab.chew 1 Tab PO DAILY Proair Hfa (Albuterol Sulfate) 8.5 Gm Hfa.aer.ad 2 Puff IH PRN Q4-6HRS PRN 21 Days [place] Greaseless Cream (Methyl Salicylate/Menthol) 57 Gm Cream..g. 1 Ross TP TID 10 Days Ferrous Gluconate 240 Mg Tablet 1 Tab PO DAILY 30 Days Omeprazole 20 Mg Capsule. 1 Cap PO DAILY Hydralazine Hcl 50 Mg Tablet 1 Tab PO TID Potassium Chloride (Potassium Chloride) 20 Meq Tablet.er 40 Meq PO DAILY Spironolactone 25 Mg Tablet 1 Tab PO DAILY Lyrica (Pregabalin) 150 Mg Capsule 1 Cap PO BID Allopurinol 300 Mg Tablet 1 Tab PO DAILY Losartan Potassium 100 Mg Tablet 100 Mg PO DAILY Coreg (Carvedilol) 3.125 Mg Tablet 3.125 Mg PO BIDWMEALS Bumetanide 1 Mg Tablet 1 Tab PO DAILY Cymbalta (Duloxetine Hcl) 60 Mg Capsule. 1 Cap PO DAILY ROS: Review of Systems Review of System REVIEW OF SYSTEMS: GENERAL: Denies weakness SKIN: No bruising, hair changes or rashes. EYES: No blurred, double or loss of vision. NOSE AND THROAT: No history of nosebleeds, hoarseness or sore throat. HEART: No history of palpitations, chest pain or shortness of breath on exertion. LUNGS: Denies cough, hemoptysis, wheezing or shortness of breath. GASTROINTESTINAL: Denies changes in appetite, nausea, vomiting, diarrhea or constipation. GENITOURINARY: No history of frequency, urgency, hesitancy or nocturia. NEUROLOGIC: Denies history of numbness, tingling, or tremor. PSYCHIATRIC: No history of panic, anxiety or depression. ENDOCRINE: No history of heat or cold intolerance, polyuria or polydipsia. EXTREMITIES: Denies joint pain, pain on walking or stiffness. Physical Exam: Vital Signs: Vital Signs Date Time Temp Pulse Resp B/P (MAP) Pulse Ox O2 Delivery O2 Flow Rate FiO2 11/15/21 15:58 106 27 125/73 (90) 97 11/15/21 13:48 97.8 Room Air 97.8 Physcial Exam: GEN: No apparent distress. Alert and oriented HEENT: Normal cephalic, atraumatic, external auditory canals are patent EYES: Extraocular muscles are intact, pupil are equally round and reactive to light and accommodation MUSCULOSKELETAL: Well developed , well nourished, good range of motion ENDOCRINE: No thyromegaly was palpated LYMPHATICS: No cervical chain or axillary nodes were noted HEMATOPOIETIC: No bruising NECK: Supple, no JVD, no thyromegaly was noted LUNGS: Clear to auscultation in all lung kinney without rhonchi or wheezing HEART: RRR, S!, S2 present. Peripheral pulses intact, no obvious murmurs noted ABDOMEN: Soft, nontender. Positive bowel sounds, no organomegaly, normal bowel sounds EXTREMITIES: Without clubbing, cyanosis, or edema. Pedal pulses intact. Negative Homans sign NEUROLOGIC: Normal speech and tone. A&O x 3, moves all extremities, no obvious focal deficits PSYCHIATRIC: Normal affect, normal mood. Stable SKIN: No ulcerations or rashes, good skin turgor, no jaundice VASCULAR: Good capillary refill, neurovascular bundle appears to be intact Labs: Labs: Laboratory Tests Test 11/15/21 14:10 11/15/21 14:15 Urine Collection Type Unknown Urine Color Yellow Urine Clarity Clear Urine pH 7.5 Urine Specific [place] 1.015 Urine Protein Negative mg/dL (NEG-TRACE) Urine Glucose (UA) Negative mg/dL (NEG) Urine Ketones (Stick) Negative mg/dL (NEG) Urine Blood Negative (NEG) Urine Nitrite Negative (NEG) Urine Bilirubin Negative (NEG) Urine Urobilinogen Dipstick 0.2 mg/dL (0.2 mg/dL) Urine Leukocyte Esterase Negative (NEG) Urine RBC 0 /HPF (0-2) Urine WBC 0 /HPF (0-4) Urine Bacteria 0 /HPF (0-FEW) Urine Opiates Screen Neg (NEG) Urine Methadone Screen Neg (NEG) Urine Barbiturates Neg (NEG) Urine Phencyclidine Screen Neg (NEG) Urine Amphetamine/Methamphetamine Neg (NEG) Urine Benzodiazepines Screen Neg (NEG) Urine Cocaine Screen Neg (NEG) Urine Cannabinoids Screen Neg (NEG) Urine Ethyl Alcohol Pos (NEG) White Blood Count 5.9 x10^3/uL (4.0-11.0) Red Blood Count 4.49 x10^6/uL (4.30-5.70) Hemoglobin 15.5 g/dL (13.0-17.5) Hematocrit 44.5 % (39.0-53.0) Mean Corpuscular Volume 99 fL (79-100) Mean Corpuscular Hemoglobin 34 pg (25-35) Mean Corpuscular Hemoglobin Concent 35 g/dL (31-37) Red Cell Distribution Width 14.2 % (11.5-14.5) Platelet Count 121 x10^3/uL (140-400) Neutrophils (%) (Auto) 55 % (31-73) Lymphocytes (%) (Auto) 34 % (24-48) Monocytes (%) (Auto) 10 % (0-9) Eosinophils (%) (Auto) 1 % (0-3) Basophils (%) (Auto) 1 % (0-3) Neutrophils # (Auto) 3.2 x10^3/uL (1.8-7.7) Lymphocytes # (Auto) 2.0 x10^3/uL (1.0-4.8) Monocytes # (Auto) 0.6 x10^3/uL (0.0-1.1) Eosinophils # (Auto) 0.0 x10^3/uL (0.0-0.7) Basophils # (Auto) 0.0 x10^3/uL (0.0-0.2) Prothrombin Time 14.7 SEC (11.7-14.0) Prothromb Time International Ratio 1.2 (0.8-1.1) Activated Partial Thromboplast Time 34 SEC (24-38) Sodium Level 141 mmol/L (136-145) Potassium Level 4.0 mmol/L (3.5-5.1) Chloride Level 102 mmol/L (98-107) Carbon Dioxide Level 26 mmol/L (21-32) Anion Gap 13 (6-14) Blood Urea Nitrogen 8 mg/dL (8-26) Creatinine 0.7 mg/dL (0.7-1.3) Estimated GFR (Cockcroft-Gault) 116.2 BUN/Creatinine Ratio 11 (6-20) Glucose Level 133 mg/dL (70-99) Lactic Acid Level 3.3 mmol/L (0.4-2.0) Calcium Level 9.1 mg/dL (8.5-10.1) Total Bilirubin 1.3 mg/dL (0.2-1.0) Aspartate Amino Transf (AST/SGOT) 106 U/L (15-37) Alanine Aminotransferase (ALT/SGPT) 47 U/L (16-63) Alkaline Phosphatase 185 U/L (46-116) Troponin I High Sensitivity 22 ng/L (4-75) IG-Gej-D-Type Natriuretic Peptide 32 pg/mL (0-124) Total Protein 8.3 g/dL (6.4-8.2) Albumin 3.7 g/dL (3.4-5.0) Albumin/Globulin Ratio 0.8 (1.0-1.7) Lipase 279 U/L (73-393) Thyroid Stimulating Hormone (TSH) 1.218 uIU/mL (0.358-3.74) Ethyl Alcohol Level 249 mg/dL (0-10) Laboratory Tests Test 11/15/21 14:10 11/15/21 14:15 Urine Collection Type Unknown Urine Color Yellow Urine Clarity Clear Urine pH 7.5 Urine Specific [place] 1.015 Urine Protein Negative mg/dL (NEG-TRACE) Urine Glucose (UA) Negative mg/dL (NEG) Urine Ketones (Stick) Negative mg/dL (NEG) Urine Blood Negative (NEG) Urine Nitrite Negative (NEG) Urine Bilirubin Negative (NEG) Urine Urobilinogen Dipstick 0.2 mg/dL (0.2 mg/dL) Urine Leukocyte Esterase Negative (NEG) Urine RBC 0 /HPF (0-2) Urine WBC 0 /HPF (0-4) Urine Bacteria 0 /HPF (0-FEW) Urine Opiates Screen Neg (NEG) Urine Methadone Screen Neg (NEG) Urine Barbiturates Neg (NEG) Urine Phencyclidine Screen Neg (NEG) Urine Amphetamine/Methamphetamine Neg (NEG) Urine Benzodiazepines Screen Neg (NEG) Urine Cocaine Screen Neg (NEG) Urine Cannabinoids Screen Neg (NEG) Urine Ethyl Alcohol Pos (NEG) White Blood Count 5.9 x10^3/uL (4.0-11.0) Red Blood Count 4.49 x10^6/uL (4.30-5.70) Hemoglobin 15.5 g/dL (13.0-17.5) Hematocrit 44.5 % (39.0-53.0) Mean Corpuscular Volume 99 fL (79-100) Mean Corpuscular Hemoglobin 34 pg (25-35) Mean Corpuscular Hemoglobin Concent 35 g/dL (31-37) Red Cell Distribution Width 14.2 % (11.5-14.5) Platelet Count 121 x10^3/uL (140-400) Neutrophils (%) (Auto) 55 % (31-73) Lymphocytes (%) (Auto) 34 % (24-48) Monocytes (%) (Auto) 10 % (0-9) Eosinophils (%) (Auto) 1 % (0-3) Basophils (%) (Auto) 1 % (0-3) Neutrophils # (Auto) 3.2 x10^3/uL (1.8-7.7) Lymphocytes # (Auto) 2.0 x10^3/uL (1.0-4.8) Monocytes # (Auto) 0.6 x10^3/uL (0.0-1.1) Eosinophils # (Auto) 0.0 x10^3/uL (0.0-0.7) Basophils # (Auto) 0.0 x10^3/uL (0.0-0.2) Prothrombin Time 14.7 SEC (11.7-14.0) Prothromb Time International Ratio 1.2 (0.8-1.1) Activated Partial Thromboplast Time 34 SEC (24-38) Sodium Level 141 mmol/L (136-145) Potassium Level 4.0 mmol/L (3.5-5.1) Chloride Level 102 mmol/L (98-107) Carbon Dioxide Level 26 mmol/L (21-32) Anion Gap 13 (6-14) Blood Urea Nitrogen 8 mg/dL (8-26) Creatinine 0.7 mg/dL (0.7-1.3) Estimated GFR (Cockcroft-Gault) 116.2 BUN/Creatinine Ratio 11 (6-20) Glucose Level 133 mg/dL (70-99) Lactic Acid Level 3.3 mmol/L (0.4-2.0) Calcium Level 9.1 mg/dL (8.5-10.1) Total Bilirubin 1.3 mg/dL (0.2-1.0) Aspartate Amino Transf (AST/SGOT) 106 U/L (15-37) Alanine Aminotransferase (ALT/SGPT) 47 U/L (16-63) Alkaline Phosphatase 185 U/L (46-116) Troponin I High Sensitivity 22 ng/L (4-75) [id number]-Type Natriuretic Peptide 32 pg/mL (0-124) Total Protein 8.3 g/dL (6.4-8.2) Albumin 3.7 g/dL (3.4-5.0) Albumin/Globulin Ratio 0.8 (1.0-1.7) Lipase 279 U/L (73-393) Thyroid Stimulating Hormone (TSH) 1.218 uIU/mL (0.358-3.74) Ethyl Alcohol Level 249 mg/dL (0-10) Assessment/Plan Assessment/Plan Patient left the hospital AGAINST MEDICAL ADVICE before I was able to evaluate him. Justifications for Admission Other Justification Alcohol withdrawal LIBRA WALDROP MD November 15, 2021 17:53
[2021-11-15] MEDS ORDERED: ELECTROLYTE (NON-ICU) PROTOCOL. MC PRN (18:00)
[2021-11-15] MEDS ORDERED: CALCIUM CARBONATE 500 MG TAB.CHEW PO PRN (18:00)
[2021-11-15] MEDS ORDERED: IV NORMAL SALINE 1000ML BAG 1,000 ML IV SCH (18:00)
[2021-11-15] MEDS ORDERED: oxyCODONE IR 5 MG TABLET PO PRN ×2 (18:00)
--- NOTE | 2021-11-15 18:30 | NUR ---
Patient called nurse into room et states that he feels uncomfortable here and is ready to go home and would like the AMA paperwork. This nurse asked the patient if there was anything we could do so that he would stay et patient responded, "no, its nothing you guys have done, it's just that I am ready to go. I'm not having a heart attack so I just need to go home." Patient signed AMA paperwork, et IV removed from LAC with cannula intact. Telemetry removed prior to patient leaving. Patient called his from room to come pick him up and security here to escort patient to front entrance via wheelchair assisted by nursing staff. All belongings taken with patient when he left.
[2021-11-15] MEDS ORDERED: SENNOSIDES/DOCUSATE 8.6/50MG TABLET. PO SCH (21:00)
[2021-11-15] MEDS ORDERED: HEPARIN for SUB-Q USE 5,000 UNIT/ML VIAL. SQ SCH (22:00)
--- NOTE | 2021-11-16 07:35 | EKG ---
[facility] [address] [place] [address] Test Date: 2021-11-15 Test Time: 13:51:19 Pat Name: EMY RANDALL Department: Room: Gender: M Transcription Coordinator: : 1965 Requested By: MILO LI Order Number: [id number] Reading MD: Measurements Intervals [place] Rate: 105 P: 26 NH: 164 QRS: 27 QRSD: 82 T: 64 QT: 348 QTc: 464 Interpretive Statements SINUS TACHYCARDIA QRS(T) CONTOUR ABNORMALITY CONSISTENT WITH ANTEROSEPTAL INFARCT AGE UNDETERMINED ABNORMAL ECG RI6.02 No previous ECG available for comparison
[2021-11-16] MEDS ORDERED: MULTIVIT INFUSN,ADULT 4,VIT K 10 ML, THIAMINE INJ 100 MG, FOLIC ACID INJ 1 MG in IV NOR... IV SCH (09:00)
[2021-11-20] MEDS ORDERED: THIAMINE 100 MG TABLET. PO SCH (09:00)
[2021-11-21] MEDS ORDERED: THIAMINE 100 MG TABLET. PO SCH (09:00)
== END 2021-11-15 19:16 | disposition left against medical advice (07) | DRG 605 ==
LOC: ER 13:45 → 6 SOUTH 15:40
PROVIDERS: ADMIT Student in an Organized Health Care Education/Training Program; ATTEND Student in an Organized Health Care Education/Training Program
DX: S20.219A Contusion of unspecified front wall of thorax, initial encounter (principal); F10.239 Alcohol dependence with withdrawal, unspecified; E87.2 Acidosis; I50.9 Heart failure, unspecified; I11.0 Hypertensive heart disease with heart failure; R29.6 Repeated falls; G62.9 Polyneuropathy, unspecified; K21.9 Gastro-esophageal reflux disease without esophagitis; R74.01 Elevation of levels of liver transaminase levels; Z79.899 Other long term (current) drug therapy; Z53.29 Procedure and treatment not carried out because of patient's decision for other reasons; W18.39XA Other fall on same level, initial encounter; Y93.89 Activity, other specified; Y92.89 Other specified places as the place of occurrence of the external cause; Y99.8 Other external cause status
CPT/HCPCS: 36415; 70450; 71045; 72125; 80053; 80307; 81001; 83605; 83690; 83880; 84443; 84484; 85025; 85610; 85730; 93005; 96361; 96374; 96375; G0480; J2060; J2405; J7030; 99285-25; G0378